=== PATIENT | male | born 1940 | race Caucasian/White ===

== ENCOUNTER → 2019-02-11 | Outpatient (CLI) | payer SELFPAY ==
[2015-04-21 07:33] VITALS: BP 122/67
[~2019-02-11] MED LIST: ALPR0.5T10 PO; ASPI325T8 PO; ATOR40TA59 PO; CITA10TA4 PO; DILT240C PO; FERR325T14 PO; HYDR-2761 PO; LOSA1TAB22 PO; METO-239 PO; POTA20TA82 PO; TAMS0.4C2 PO; WARF3TAB50 PO
--- NOTE | 2019-02-11 15:13 | KCIC ---
Ultrasound venous Doppler INDICATION:Bilateral lower extremity edema right greater than left. TECHNIQUE: Grayscale, color Doppler and spectral waveform ultrasound images of the bilateral lower extremities deep veins obtained. COMPARISON: None FINDINGS: Poor is preservation of bilateral calf veins due to edema. Rest of the interrogated deep veins are compressible and demonstrate evidence of blood flow with normal respiratory variation and response to augmentation. Mildly enlarged right groin lymph node is seen measuring 1.8 x 2.1 x 0.6 cm, nonspecific may be reactive. 3.3 x 7.9 x 1.4 cm cystic lesion is seen in the left popliteal fossa most likely a complex Muniz's cyst. IMPRESSION: Limited exam due to poor the visualization of calf veins due to edema. Rest of the deep veins demonstrate no acute DVT. Electronically signed by: Beka Zaman DO (02/11/2019 3:10 PM) [facility]
== END | disposition home or self-care (01) ==
LOC: KCIC US 13:24
PROVIDERS: ATTEND Family Medicine
DX: R60.0 Localized edema (principal)
CPT/HCPCS: 93970

== ENCOUNTER → 2019-09-12 | Outpatient (CLI) | payer BC ==
[2015-04-21 07:33] VITALS: BP 122/67
[~2019-09-12] MED LIST changes: +POTA20TA4 PO; -POTA20TA82 PO
--- NOTE | 2019-09-12 10:30 | RAD ---
MR#: [id number] Date of Study: 09/12/2019 Ordering Physician: JUSTIN SALDAÑA, Referring Physician: JUSTIN SALDAÑA, Tech: BETTY Kwan, RDAK, RTR APPROVED REPORT Patient Location : OUT-PATIENT Indications Lower Extremity Edema : Risk Factors Obesity Findings Limited grayscale images of the bilateral saphenofemoral junctions, greater and lesser saphenous vein s do not reveal any obvious evidence of thrombus The right great saphenous vein measures 7 mm and the left great saphenous vein measures 11 mm. Bilateral greater and lesser saphenous veins do not show any evidence of reflux. Critical Notification Critical Value: No <Conclusion> 1. Negative for reflux in the bilateral greater and lesser saphenous veins. Signed by : Dimitris Hopkins, Electronically Approved : 09/12/2019 10:29:49
--- NOTE | 2019-09-12 10:32 | RAD ---
MR#: [id number] Date of Study: 09/12/2019 Ordering Physician: JUTSIN SALDAÑA, Referring Physician: JUSTIN SALDAÑA, Tech: BETTY Kwan, [facility], RTR APPROVED REPORT Bilateral Lower Extremity Venous Study for DVT Patient Location: OUT-PATIENT Indications Lower Extremity Edema: Findings The bilateral lower extremity deep veins were evaluated for thrombus with color Doppler, spectral and grayscale images. On the right the grayscale images of the common femoral, superficial femoral and popliteal veins do n ot demonstrate any evidence of thrombus and these veins appear to be compressible. The below-knee vei ns were not well visualized but grossly appear to be compressible. Spectral imaging and color Doppler do not reveal any evidence of obstruction to flow with normal respirophasic variation above the knee . Below the knee there is spontaneous flow noted. On the left, the grayscale images of the common femoral, superficial femoral and popliteal veins do n ot demonstrate any evidence of thrombus and these veins appear to be compressible. The below-knee vei ns again were not well visualized but grossly appear to be compressible. Spectral imaging and color D oppler do not reveal any evidence of obstruction to flow with normal respirophasic variation above th e knee. The below-knee veins demonstrate spontaneous flow.The bilateral lower extremity deep veins we re evaluated for thrombus with color Doppler, spectral and grayscale images. There is bilateral edema in the in the subcutaneous areas. Critical Notification Critical Value: No <Conclusion> 1. Negative for DVT in the lower extremities Signed by : Dimitris Hopkins, Electronically Approved : 09/12/2019 10:31:54
== END | disposition home or self-care (01) ==
LOC: US 08:28
PROVIDERS: ATTEND Internal Medicine Cardiovascular Disease
DX: R60.0 Localized edema (principal)
CPT/HCPCS: 93970

== ENCOUNTER → 2020-01-21 | Outpatient (CLI) | payer BC ==
[2015-04-21 07:33] VITALS: BP 122/67
[~2020-01-21] MED LIST changes: +ASPI81TA59 PO; +DULO30CA2 PO; +LOSA100T14 PO; +PRAM0.255 PO
[2020-01-21 14:07] LABS: BASO # 0.1 x10^3/uL (0.0-0.2); BASO % 1 % (0-3); EOS # 0.1 x10^3/uL (0.0-0.7); EOS % 1 % (0-3); HEMATOCRIT 43.6 % (39.0-53.0); LYMPH # 1.7 x10^3/uL (1.0-4.8); LYMPH % 24 % (24-48); MEAN CORPUSCULAR HEMOGLOBIN 33 pg (25-35); MEAN CORPUSCULAR HGB CONC 35 g/dL (31-37); MEAN CORPUSCULAR VOLUME 97 fL (79-100); MONO # 0.5 x10^3/uL (0.0-1.1); MONO % 7 % (0-9); NEUT # 4.9 x10^3/uL (1.8-7.7); NEUT % 67 % (31-73); PLATELET COUNT 222 x10^3/uL (140-400); RED BLOOD COUNT 4.51 x10^6/uL (4.30-5.70); RED CELL DISTRIBUTION WIDTH 13.6 % (11.5-14.5); WHITE BLOOD COUNT 7.2 x10^3/uL (4.0-11.0)
[2020-01-21 14:15] LABS: PROTHROMBIN TIME PATIENT 17.7 SEC (11.7-14.0)
[2020-01-21 14:16] LABS: ALBUMIN 3.3 g/dL (3.4-5.0); CALCIUM 8.8 mg/dL (8.5-10.1); CREATININE 1.2 mg/dL (0.7-1.3); GFR 58.1; POTASSIUM 4.1 mmol/L (3.5-5.1)
--- NOTE | 2020-01-21 14:41 | EKG ---
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
--- NOTE | 2020-01-21 17:19 | RAD ---
EXAM: Chest, 2 views. HISTORY: Preoperative evaluation. COMPARISON: 03/25/2015 FINDINGS: 2 views of the chest are obtained. There is stable linear opacity within the right mid lower lung likely due to pleural parenchymal scarring. There is a calcified granuloma within the lateral right mid thorax. There is mild elevation of the right hemidiaphragm which is stable in appearance. The heart is normal in size. There is no pleural effusion or pneumothorax. IMPRESSION: Stable elevation of the right hemidiaphragm and suspect right mid and lower lung linear scarring. Electronically signed by: Malika Lugo MD (01/21/2020 5:16 PM) [id number]
== END | disposition home or self-care (01) ==
LOC: SURGPAT 12:56
PROVIDERS: ATTEND Orthopaedic Surgery
DX: Z01.818 Encounter for other preprocedural examination (principal); M17.12 Unilateral primary osteoarthritis, left knee; J98.4 Other disorders of lung; J84.10 Pulmonary fibrosis, unspecified; Q79.1 Other congenital malformations of diaphragm; R94.31 Abnormal electrocardiogram [ECG] [EKG]
CPT/HCPCS: 36415; 71046; 80048; 82040; 82306; 85025; 85610; 85730; 87641; 93005

== ENCOUNTER → 2020-01-31 | Outpatient (CLI) | payer BC ==
[2015-04-21 07:33] VITALS: BP 122/67
[~2020-01-31] MED LIST changes: +FURO40TA4 PO; +MELO15TA6 PO; +POTASSIUM 99 MG; +WARF-31 PO
== END | disposition home or self-care (01) ==
LOC: LAB 13:03
PROVIDERS: ATTEND Orthopaedic Surgery
DX: Z01.818 Encounter for other preprocedural examination (principal); Z11.59 Encounter for screening for other viral diseases; M17.12 Unilateral primary osteoarthritis, left knee
CPT/HCPCS: U0003-CS

== ENCOUNTER 2020-02-04 07:35 | Inpatient (IN) | payer BC ==
[~2020-02-04] VITALS: Ht 175.3 cm; Wt 121.0 kg
[2020-02-04] VITALS (8 sets, daily range): BP systolic 110–155; BP diastolic 45–68
[~2020-02-04 07:35] MED LIST changes: +ACETAMINOPHEN 500 MG TABLET PO PRN; -FURO40TA4 PO; +GABAPENTIN 300 MG CAPSULE. PO PRN; +HYDROmorphone 2 MG/ML VIAL IV PRN; +IV RINGERS,LACTATED 1000ML 1,000 ML IV SCH; -MELO15TA6 PO; +MELOXICAM 7.5 MG TABLET PO PRN; +MORPHINE SULFATE 2 MG/ML VIAL. IV PRN; +MORPHINE SULFATE 5 MG, KETOROLAC 30MG VIAL 30 MG, ROPIVacaine 0.5% PF 60 ML, EPINEPHrin... INT ART ONE; +ONDANSETRON PF 4 MG/2 ML VIAL. IV PRN; -POTASSIUM 99 MG; +PROCHLORPERAZINE 10 MG/2 ML VIAL. IV PRN; -WARF-31 PO; +fentaNYL PF VIAL 100 MCG/2 ML VIAL IV PRN
[2020-02-04] MEDS ORDERED: FURO40TA4 PO (08:29)
[2020-02-04] MEDS ORDERED: POTASSIUM 99 MG (08:34)
[2020-02-04 08:51] LABS: PROTHROMBIN TIME PATIENT 13.8 SEC (11.7-14.0)
[2020-02-04] MEDS ORDERED: WARF-31 PO (08:54)
[2020-02-04] MEDS ORDERED: MELO15TA6 PO (08:55)
--- NOTE | 2020-02-04 09:04 | PREOP HP ---
DATE OF SERVICE: 02/04/2020 CHIEF COMPLAINT: Left knee pain. HISTORY OF PRESENT ILLNESS: The patient is familiar to me from previous right total knee arthroplasty that is otherwise doing well, giving him good pain relief and increased activity; however, the left knee is now bothering him more and more; with activity, it pops and is painful. He has had swelling in both legs, the right more severe than the left. He normally takes Lasix; and when he takes that regularly, he does much better, but if he goes out on errands, he says that he is unable to keep up with the need to go to the bathroom and sometimes defers taking of his medicine; and in addition to his knee pain, also has some pain up and down the left leg that goes up and down the entire leg from the buttock to the foot. PAST MEDICAL HISTORY: Significant for hypertension, hyperlipidemia, reflux disease, osteoarthritis, anxiety, history of TIA, depression, frequent urination, hypokalemia, dyslipidemia, atrial fibrillation, and a history of stroke. PAST SURGICAL HISTORY: Right knee replacement in 2013, inguinal hernia repair in 2015, cataracts on both eyes, and a tonsillectomy and adenoidectomy in childhood. FAMILY HISTORY: Mother and father are both due to stroke. Two brothers and two sons are healthy. SOCIAL HISTORY: He is a former smoker. Denies alcohol or drug use. MEDICATION LIST: Reviewed. ALLERGIES: He has no known drug allergies. REVIEW OF SYSTEMS: Denies any chest pain, shortness of breath, recent fever, chills, respiratory or other constitutional symptoms. PHYSICAL EXAMINATION: VITAL SIGNS: Per admission sheet. HEENT: Atraumatic, normocephalic. HEART: Regular rate and rhythm. LUNGS: Clear to auscultation bilaterally. ABDOMEN: Benign. EXTREMITIES: Examination of the legs reveals some pitting edema in the right leg, a little less severe in the left. Well-healed incisions and good stability from the total knee arthroplasty on the right. He has some varus on the left knee with severe joint line tenderness, no gross ligamentous instability. Normal alignment, stability, bilateral hips and ankles. With a positive straight leg raise sign on the left, not present on the right. ASSESSMENT: 1. History of right total knee arthroplasty. 2. Primary osteoarthritis of left knee with pain. 3. Left lumbar radiculopathy. 4. Swelling in both legs with inconsistent use of diuretic. TREATMENT PLAN: I had gone over with him the need for ongoing better use of his diuretic and we had gone through risks, benefits and postoperative course, which we reviewed of total knee arthroplasty, which he is familiar with due to his previous procedure. We talked about the possibility of infection, nerve or blood vessel damage, medical or other anesthetic complications among others, and he wishes to proceed with surgical evaluation and treatment today, and I again emphasized the need for better fluid control postoperatively, which would help him really in the recovery of this and also some of the swelling that his has noted on the right leg. ARTIE KEE MD DR: JAMES/emelyn JOB#: [id number] / [id number]
[2020-02-04] MEDS ORDERED: VANCOMYCIN 1 GM VIAL. ONE (09:28)
[2020-02-04] MEDS ORDERED: fentaNYL PF VIAL 250 MCG/5 ML VIAL ONE (09:36)
[2020-02-04] MEDS ORDERED: LIDOCAINE 2% PF 5 ML VIAL. ONE (09:37)
[2020-02-04] MEDS ORDERED: PROPOFOL 10 MG/ML (20ML) VIAL. IV ONE (09:37)
[2020-02-04] MEDS ORDERED: SEVOFLURANE > 120 MINUTES. IH ONE (11:52)
[2020-02-04] MEDS ORDERED: DEXAMETHASONE SOD PHOS 4 MG/ML VIAL ONE (11:52)
[2020-02-04] MEDS ORDERED: ONDANSETRON PF 4 MG/2 ML VIAL. ONE (11:52)
[2020-02-04] MEDS ORDERED: MORPHINE SULFATE 2 MG/ML VIAL. IVP PRN (12:15)
[2020-02-04] MEDS ORDERED: oxyCODONE IR 5 MG TABLET PO PRN (12:15)
[2020-02-04] MEDS ORDERED: DEXTROSE 50% 25 GM / 50ML DISP.SYRIN. IV PRN (12:15)
[2020-02-04] MEDS ORDERED: 0.9 % SODIUM CHLORIDE 10 ML DISP.SYRIN. IV PRN (12:15)
[2020-02-04] MEDS ORDERED: diphenhydrAMINE 50 MG/ML VIAL IVP PRN (12:15)
[2020-02-04] MEDS ORDERED: PROCHLORPERAZINE 5 MG TABLET. PO PRN (12:15)
[2020-02-04] MEDS ORDERED: ZOLPIDEM 5 MG TABLET. PO PRN (12:15)
[2020-02-04] MEDS ORDERED: CALCIUM CARBONATE 500 MG TAB.CHEW PO PRN (12:15)
[2020-02-04] MEDS ORDERED: fentaNYL PF VIAL 100 MCG/2 ML VIAL IVP PRN (12:15)
[2020-02-04] MEDS: FERROUS SULFATE 325 MG TABLET. PO SCH ×2 (13:00→15:50)
--- NOTE | 2020-02-04 13:18 | RAD ---
INDICATION: Reason: POST OP / Spl. Instructions: / History: COMPARISON: February 2019 IMPRESSION: Left knee: 2 views obtained. Arthroplasty changes without periprosthetic fracture or dislocation. Drain in the soft tissues. Electronically signed by: Santi Santos MD (02/04/2020 1:15 PM) [id number]
[2020-02-04] MEDS: TAMSULOSIN 0.4 MG CAP.ER.24H. PO SCH (15:50)
[2020-02-04] MEDS ORDERED: WARFARIN 7.5 MG TABLET. PO ONE (16:00)
[2020-02-04] MEDS: IV NORMAL SALINE 1000ML BAG 1,000 ML IV SCH (16:00)
[2020-02-04] MEDS ORDERED: FERROUS SULFATE 325 MG TABLET. PO SCH (17:00)
[2020-02-04] MEDS: ONDANSETRON ODT 4 MG TAB.RAPDIS. PO SCH (17:14)
[2020-02-04] MEDS: ONDANSETRON PF 4 MG/2 ML VIAL. IVP SCH (17:14)
[2020-02-04] MEDS: KETOROLAC 30MG VIAL 30 MG, BUPIVACAINE MPF 0.25% 20 ML, EPINEPHrine 0.5 MG in TOTAL VOL... INT ART SCH (17:42)
--- NOTE | 2020-02-04 18:04 | NUR ---
Patient arrived to the unit around 1330 from PACU in a bed, at bedside. JULIANA covered with garry wrap on left leg, hemovac, and IAC intact. Edema noted in BLE which patient/ states is chronic but getting worse. IV working properly without any concerns noted. SCD on RLE and YEN on left foot. Will continue to monitor.
--- NOTE | 2020-02-04 18:45 | PDOC4 ---
Operative Note Operative Note Date of surgery: 02/04/2020 Preoperative diagnosis: Degenerative joint disease left knee Postoperative diagnosis: Same Operative procedure: Left total knee arthroplasty Surgeon: Gerri Photoengraving Apprentice: Dorian Santamaria nurse practitioner Anesthesia: General Estimated blood loss: 100 cc Specimens: Cartilage surfaces to pathology Complications: None Drains: Hemovac drain and intra-articular catheter, left knee Operative indications: Please see my preoperative history and physical and previous clinic notes to outline detailed operative indications and note that patient previously underwent a right total knee arthroplasty and aside from leg swelling has been very pleased with this and we had previously discussed his need to be more compliant with his prescribed Lasix to deal better with his lower extremity edema which is a risk factor for wound complications infection and I covered specific potential complications including additionally nerve or blood vessel damage premature wear or loosening continued pain medical or other anesthetic complications among others he agrees to proceed with operative evaluation and treatment having given informed consent. Operative text: Patient was identified procedure verified patient placed in the supine position on the operating table. After adequate amounts of general anesthesia were administered the left lower extremity was prepped and draped in standard sterile fashion with a thigh tourniquet. After timeout was performed patient procedure identified and verified the left lower extremity was exsanguinated by Esmarch bandage tourniquet inflated to 350 mmHg and a midline incision was made along with a mid vastus approach patella was everted fat pad was excised he was noted to have severe tricompartmental degenerative change and femur was drilled intramedullary and a standard distal cut was made. ACL and PCL were excised and the femoral sizing guide resulted in a size 5 femoral component which was translated anteriorly slightly and AP chamfer cuts were made. Tibial cut was made with the extra medullary tibial cutting guide aligned with the second toe and balancing carried out with a 15 mm spacing block. Additional medial release and excision of medial osteophytes were necessary for balancing and a synovectomy was performed due to his significantly irritated synovium. Tibia was sized at a size 5 which was placed in proper alignment slight external rotation and drilled and broached. Femur was pinned and box cut was made and trial implants after achieving balance involved a posterior stabilized 18 mm spacer. He was however noted to have some lateral laxity and I elected to trial fit with a constrained articular insert and supplement the tibial component with a 10 x 100 mm Tiffany II longstem. Trial components were removed the following components were assembled on the back table including a size 5 left journey nonporous tibial baseplate which was assembled with a Tiffany II 10 x 100 mm long non-slotted stem and a size left journey to cobalt chromium femoral component. Patella had previously been prepared with a biconvex 26 mm patella which was medialized and osteophytes and lateral bone was removed to prevent any impingement. After thorough rogation carried out normal saline solution the above components were cemented in place with polymethylmethacrylate cement and after excess cement was removed and 18 mm constrained articular insert was placed temporarily with the knee in extension. Thorough irrigation carried out normal saline solution and a constrained articular insert 18 mm size was slid in place and locked. Intra-articular mixture was injected subperiosteally and around the joint capsule. Hemovac drain and intra-articular catheter were placed mid vastus incision was closed in a running fashion with #1 PDS strata fix suture excellent patellar tracking full range of motion ligament balance was noted. Subcutaneous closure accomplished with buried Vicryl suture skin closure with subcuticular 3-0 Monocryl strata fix suture ginger dressing was applied. Patient was returned to recovery room in stable condition having tolerated procedure well. Dorian Santamaria nurse practitioner was present for the procedure and assisted in the patient positioning prepping draping retraction closure and dressings ARTIE KEE MD Feb 04, 2020 18:45
[2020-02-04] MEDS: ATORVASTATIN CALCIUM 40 MG TABLET. PO SCH (21:03)
[2020-02-05] VITALS (7 sets, daily range): BP systolic 113–160; BP diastolic 50–77
[2020-02-05] MEDS: KETOROLAC 30MG VIAL 30 MG, BUPIVACAINE MPF 0.25% 20 ML, EPINEPHrine 0.5 MG in TOTAL VOL... INT ART SCH (05:35)
[2020-02-05] MEDS: GABAPENTIN 100 MG CAPSULE. PO SCH ×3 (05:36→21:52)
[2020-02-05] MEDS: ONDANSETRON ODT 4 MG TAB.RAPDIS. PO SCH ×3 (06:00→12:00)
[2020-02-05] MEDS: traMADol 50 MG TABLET PO SCH ×3 (06:00→18:34)
[2020-02-05] MEDS ORDERED: MAGNESIUM HYDROXIDE 2,400 MG/30 ML ORAL.SUSP. PO PRN (06:00)
[2020-02-05] MEDS: ONDANSETRON PF 4 MG/2 ML VIAL. IVP SCH ×3 (06:00→12:00)
[2020-02-05 06:51] LABS: HEMATOCRIT 36.8 % (39.0-53.0); HEMOGLOBIN 12.4 g/dL (13.0-17.5)
[2020-02-05 07:03] LABS: PROTHROMBIN TIME PATIENT 16.9 SEC (11.7-14.0)
[2020-02-05] MEDS: POTASSIUM CHLORIDE 10 MEQ TABLET.ER. PO SCH (08:05)
[2020-02-05] MEDS: FUROSEMIDE 40 MG TABLET. PO SCH (08:06)
[2020-02-05] MEDS: MULTIVITAMIN with MINERAL TABLET. PO SCH (08:06)
[2020-02-05] MEDS: ACETAMINOPHEN 500 MG TABLET PO SCH ×3 (08:06→21:53)
[2020-02-05] MEDS: MELOXICAM 7.5 MG TABLET PO SCH (08:07)
[2020-02-05] MEDS: FERROUS SULFATE 325 MG TABLET. PO SCH ×3 (08:08→18:34)
[2020-02-05] MEDS: DULoxetine HCL 30 MG CAPSULE.DR PO SCH (08:09)
[2020-02-05] MEDS: METOPROLOL SUCC 24HR ER 25 MG TAB.ER.24H. PO SCH (08:09)
[2020-02-05] MEDS: LOSARTAN POTASSIUM 50 MG TABLET. PO SCH (08:09)
[2020-02-05] MEDS: ASPIRIN CHEWABLE 81 MG TABLET. PO SCH (09:00)
[2020-02-05] MEDS: SENNOSIDES/DOCUSATE 8.6/50MG TABLET. PO SCH (09:00)
[2020-02-05] MEDS: PRAMIPEXOLE 1 MG TABLET. PO SCH (09:08)
--- NOTE | 2020-02-05 09:52 | NUR ---
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 Target range for this patient is: 2 -3 P: Warfarin dose: 5 mg Today at 1600 Bridge Therapy: None Next INR due 02/06/20 AM Pharmacy anticoagulation service will continue to follow. CAROLA GASPAR [facility], 02/05/20 0952
[2020-02-05] MEDS ORDERED: ONDANSETRON PF 4 MG/2 ML VIAL. IVP PRN (12:00)
[2020-02-05] MEDS ORDERED: ONDANSETRON ODT 4 MG TAB.RAPDIS. PO PRN (12:00)
[2020-02-05] MEDS: IV NORMAL SALINE 1000ML BAG 1,000 ML IV SCH (12:07)
--- NOTE | 2020-02-05 13:27 | PDOC2 ---
JACKELINE LAMA BRAILLE TRANSLATOR 02/05/20 1327: CARDIAC CONSULT DATE OF CONSULT Date of Consult DATE: 02/05/20 TIME: 13:18 REASON FOR CONSULT Reason for Consult: leg, foot swelling REFERRING PHYSICIAN Referring Physician: Dr. Talley SOURCE Source: Chart review, Patient HISTORY OF PRESENT ILLNESS HISTORY OF PRESENT ILLNESS This is an 80 yo male who presented for left total knee replacement. Has a h/o chronic LE edema. Is supposed to be on Lasix 40mg daily, but reports he does not generally take. Reports chronic RLE edema. Left is not generally swollen, but has been since surgery. He denies any chest pain, palpitations, dizziness, diaphoresis, palpitations, or nausea/vomiting. Reports his kidney are "not too good". Generally urinates moderate amount following oral lasix, but has not done so here in the hospital. PAST MEDICAL HISTORY Cardiovascular: AFIB, HTN, Hyperlipidemia CENTRAL NERVOUS SYSTEM: CVA GI: GERD Psych: Anxiety, Depression Musculoskeletal: Osteoarthritis Renal/: Chronic renal insuff PAST SURGICAL HISTORY Past Surgical History: Cataract Removal, Hernia Repair, Total knee replacement (right. Left this admission ), Tonsillectomy FAMILY HISTORY Family History: High Cholestrol, Hypertension, Stroke SOCIAL HISTORY Smoke: Quit ALCOHOL: social Drugs: None Lives: with Family CURRENT MEDICATIONS CURRENT MEDICATIONS Current Medications Medications (Trade) Dose Ordered Sig/Jaime Route PRN Reason Start Time Stop Time Status Last Admin Dose Admin Warfarin Sodium (Coumadin) 7.5 mg 1X ONCE PO 02/04/20 16:00 02/04/20 16:01 DC 02/04/20 15:50 Multivitamins (Thera M Plus) 1 tab DAILY PO 02/05/20 09:00 02/05/20 08:06 Ketorolac Tromethamine 30 mg/Bupivacaine HCl 20 ml/ Epinephrine HCl 0.5 mg/ Miscellaneous 43 ml @ 258 mls/hr Q12H INT ART 02/04/20 18:00 02/05/20 06:09 DC 02/05/20 05:35 Acetaminophen (Tylenol) 1,000 mg Q6H PO 02/05/20 09:00 02/05/20 08:06 Meloxicam (Mobic) 15 mg DAILY PO 02/05/20 09:00 02/05/20 08:07 Tramadol HCl (Ultram) 50 mg Q6H PO 02/05/20 06:00 8/12/20 12:19 Gabapentin (Neurontin) 100 mg Q12H PO 02/05/20 06:00 02/05/20 05:36 Atorvastatin Calcium (Lipitor) 40 mg HS PO 02/04/20 21:00 02/04/20 21:03 Diltiazem HCl (Cardizem 24hr Cd) 240 mg DAILY07 PO 02/05/20 07:00 02/05/20 06:33 Duloxetine HCl (Cymbalta) 30 mg DAILY PO 02/05/20 09:00 02/05/20 08:09 Furosemide (Lasix) 40 mg DAILY PO 02/05/20 09:00 02/05/20 08:06 Metoprolol Succinate (Toprol Xl) 12.5 mg DAILY08 PO 02/05/20 08:00 02/05/20 08:09 Pramipexole Dihydrochloride (miraPEX) 1 mg DAILY PO 02/05/20 09:00 02/05/20 09:08 Tamsulosin HCl (Flomax) 0.8 mg DAILYBFRSUP PO 02/04/20 17:00 02/04/20 15:50 Losartan Potassium (Cozaar) 100 mg DAILY PO 02/05/20 09:00 02/05/20 08:09 Potassium Chloride (Klor-Con) 2.5 meq DAILYWBKFT PO 02/05/20 08:00 02/05/20 08:05 Cefazolin Sodium/ Dextrose 50 ml @ 100 mls/hr Q6HRS IV 02/04/20 16:00 02/04/20 22:35 DC 02/04/20 21:52 Cefazolin Sodium/ Dextrose 50 ml @ 100 mls/hr 1X ONCE IV 02/05/20 04:00 02/05/20 04:29 DC 02/05/20 04:06 ALLERGIES ALLERGIES: Coded Allergies: No Known Drug Allergies (Unverified , 02/04/20) ROS Review of System 14 ROS conducted with pertinent positives noted above in HPI PHYSICAL EXAM General: Alert, Oriented X3, Cooperative, No acute distress HEENT: Atraumatic, Mucous membr. moist/pink Lungs: Clear to auscultation Heart: Regular rate (heart tones regular. Not on tele) Abdomen: Soft Extremities: Other (2+ bilateral LE edema. AMADOR wrap to left leg) Skin: No significant lesion Neuro: Normal speech, Sensation intact Psych/Mental Status: Mental status NL, Mood NL MUSCULOSKELETAL: Osteoarthritic changes both hands VITALS/I&O VITALS/I&O: Vital Signs Date Time Temp Pulse Resp B/P (MAP) Pulse Ox O2 Delivery O2 Flow Rate FiO2 02/05/20 12:19 Room Air 02/05/20 11:00 98.2 81 18 156/65 (95) 95 98.2 02/04/20 19:45 2.0 I & O 02/04/20 02/04/20 02/05/20 15:00 23:00 07:00 Intake Total 1200 ml 350 ml Output Total 75 ml 620 ml 855 ml Balance 1125 ml -270 ml -855 ml LABS Lab: Laboratory Tests Test 02/05/20 06:25 Hemoglobin 12.4 g/dL (13.0-17.5) L Hematocrit 36.8 % (39.0-53.0) L Mean Corpuscular Hemoglobin Concent 34 g/dL (31-37) Prothrombin Time 16.9 SEC (11.7-14.0) H Prothrombin Time INR 1.4 (0.8-1.1) H Laboratory Tests 02/05/20 06:25 ASSESSMENT/PLAN ASSESSMENT/PLAN 1. DJD of left knee; s/p total knee arthroplasty. Tolerated well 1. Chronic LE edema; worse recently. Has been noncompliant with diuretic therapy. Recent US negative for reflux in the bilateral greater and lesser saphenous veins 3. Hypertension; mildly elevated 4. Hyperlipidemia; statin 5. PAFIB; heart tones regular. Not on tele. Recommendations BMP, Mg Will give dose of IV Lasix Discussed importance of compliance with oral Lasix therapy 2Gm Na diet Continue Cardizem for rate control Warfarin for stroke prophylaxis. Outpatient echo Supportive care JUANIS HOOKER MD 02/06/20 0749: CARDIAC CONSULT ASSESSMENT/PLAN ASSESSMENT/PLAN Late entry for 02/05/2020 Pt. seen and examined. 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 Continue diuresis. JACKELINE LAMA APRN Feb 05, 2020 13:27 JUANIS HOOKER MD Feb 06, 2020 07:49
[2020-02-05 13:57] LABS: CALCIUM 8.2 mg/dL (8.5-10.1); CREATININE 1.4 mg/dL (0.7-1.3); GFR 48.5; MAGNESIUM 1.9 mg/dL (1.8-2.4)
[2020-02-05] MEDS: TAMSULOSIN 0.4 MG CAP.ER.24H. PO SCH (15:54)
[2020-02-05] MEDS ORDERED: BISACODYL 10 MG SUPP.RECT. PR PRN (16:00)
[2020-02-05] MEDS ORDERED: FUROSEMIDE 40 MG/4 ML VIAL. IVP ONE (16:00)
[2020-02-05] MEDS ORDERED: WARFARIN 5 MG TABLET. PO ONE (16:00)
--- NOTE | 2020-02-05 20:44 | PDOC ---
PROGRESS NOTES Date of Service DATE: 02/05/20 TIME: 20:39 Subjective Subjective Problems overnight: Doing overall pretty well with physical therapy, has significant muscle spasm and severe foot and leg swelling right much worse than left Objective Vital Signs Vital Signs Date Time Temp Pulse Resp B/P (MAP) Pulse Ox O2 Delivery O2 Flow Rate FiO2 02/05/20 19:00 98.5 72 18 145/57 (86) 93 Room Air 98.5 02/04/20 19:45 2.0 Physical Exam On exam distal neurovascular status is intact his dressing clean dry intact he has good early motion and stability of the left knee severe bilateral lower extremity pitting edema right much worse than left Labs Laboratory Tests Test 02/04/20 08:10 02/05/20 06:25 Prothrombin Time 13.8 SEC (11.7-14.0) 16.9 SEC (11.7-14.0) Prothromb Time International Ratio 1.1 (0.8-1.1) 1.4 (0.8-1.1) Activated Partial Thromboplast Time 26 SEC (24-38) C-Reactive Protein, Quantitative 1.7 mg/L (0-3.3) Hemoglobin 12.4 g/dL (13.0-17.5) Hematocrit 36.8 % (39.0-53.0) Mean Corpuscular Hemoglobin Concent 34 g/dL (31-37) Sodium Level 139 mmol/L (136-145) Potassium Level 4.0 mmol/L (3.5-5.1) Chloride Level 103 mmol/L (98-107) Carbon Dioxide Level 29 mmol/L (21-32) Anion Gap 7 (6-14) Blood Urea Nitrogen 22 mg/dL (8-26) Creatinine 1.4 mg/dL (0.7-1.3) Estimated GFR (Cockcroft-Gault) 48.5 Glucose Level 147 mg/dL (70-99) Calcium Level 8.2 mg/dL (8.5-10.1) Magnesium Level 1.9 mg/dL (1.8-2.4) Laboratory Tests Test 02/05/20 06:25 Hemoglobin 12.4 g/dL (13.0-17.5) Hematocrit 36.8 % (39.0-53.0) Mean Corpuscular Hemoglobin Concent 34 g/dL (31-37) Prothrombin Time 16.9 SEC (11.7-14.0) Prothromb Time International Ratio 1.4 (0.8-1.1) Sodium Level 139 mmol/L (136-145) Potassium Level 4.0 mmol/L (3.5-5.1) Chloride Level 103 mmol/L (98-107) Carbon Dioxide Level 29 mmol/L (21-32) Anion Gap 7 (6-14) Blood Urea Nitrogen 22 mg/dL (8-26) Creatinine 1.4 mg/dL (0.7-1.3) Estimated GFR (Cockcroft-Gault) 48.5 Glucose Level 147 mg/dL (70-99) Calcium Level 8.2 mg/dL (8.5-10.1) Magnesium Level 1.9 mg/dL (1.8-2.4) Imaging Postop x-rays show well-positioned left total knee arthroplasty Assessment Assessment POD#1 left total knee arthroplasty Plan Plan of Care Cardiology evaluation for his lower extremity swelling. He is followed by Dr. De Dios and is prescribed Lasix but takes it inconsistently as he says if he is out anywhere he has to constantly go to the bathroom and therefore avoids the medication. I had emphasized to him that it is critical that we have him keep up with the medication or develop a different strategy that is effective as he could have severe consequences including wound healing problems circulation problems infection among others Continue mobilize with physical therapy, Coumadin anticoagulation, previous recent ultrasounds of his right leg have been negative Justicifation of Admission Dx: Justifications for Admission: Justification of Admission Dx: Yes (Severe lower extremity swelling requiring cardiac evaluation of diuresis and ongoing treatment plan) ARTIE KEE MD Feb 05, 2020 20:44
[2020-02-05] MEDS: ATORVASTATIN CALCIUM 40 MG TABLET. PO SCH (21:52)
[2020-02-06 03:00] VITALS: BP 112/38
[2020-02-06 07:00] VITALS: BP 144/49
[2020-02-06] MEDS: traMADol 50 MG TABLET PO SCH (07:33)
[2020-02-06] MEDS: POTASSIUM CHLORIDE 10 MEQ TABLET.ER. PO SCH (08:00)
[2020-02-06 08:15] LABS: PROTHROMBIN TIME PATIENT 22.2 SEC (11.7-14.0)
[2020-02-06] MEDS ORDERED: OXYC-325 PO (08:31)
--- NOTE | 2020-02-06 08:33 | SNU/HH DC ---
DISCHARGE WITH HOME HEALTH DISCHARGE INFORMATION: Condition on Discharge: Stable CODE STATUS: Code Status: Full HOME HEALTH: Face to Face: I certify this patient is under my care and that I, or a nurse practitioner or physician's personal injury legal assistant working with me, had a face to face encounter that meets the physician face to face encounter requirements with this patient on [02/06/2020]. Medical Complications: S/P Joint Replacement, Other (Please comply with scheduled Lasix dosing to control lower extremity swelling which could compromise healing) RN For Eval/Treatment: Yes Physical Therapy For: Evalulation/Treatment Pt Meets Homebound Status: Limited distance walking POST DISCHARGE ORDERS: Activity Instructions for Disc: Activity as tolerated Weight Bearing Status after Di: As tolerated Bathing Instructions: Shower-keep dressing dry, No Tub Bath until see Dr. CRAVEN AFTER DISCHARGE: Cardiac Wound/Incision Care: Ice to area for comfort, Keep wound/cast CDI, Do not change dressing (Keep ginger dressing intact call if saturated) FOLLOW-UP: Follow up with: Dr. Talley 2 weeks postop Warfarin Follow UP: Testing and dosing as directed per [facility] TREATMENT/EQUIPMENT ORDERS: Adaptive Equipment Issued: Front wheeled walker CERTIFICATION STATEMENT: Certification Statement: Certification Statement: Based on the above finding, I certify that this patient is confined to the home and needs intermittent longterm care, physical therapy and/or speech therapy, or continues to need occupational therapy.~ This patient is under my care, and I have initiated the establishment of the plan of care.~ This patient will be followed by myself or a community physician who will periodically review the plan of care. Home Meds Reported Medications Meloxicam (MOBIC) 15 Mg Tablet, 1 TAB PO ONCE for PRE OP, #30 TAB 1 Refill 02/04/20 [POTASSIUM 99 MG otc] No Conflict Check, for SUPPLEMENT 02/04/20 Furosemide (FUROSEMIDE) 40 Mg Tablet, 1 TAB PO DAILY for DIURETIC, #30 TAB 5 Refills 02/04/20 Aspirin (Children's Aspirin) 81 Mg Tab.chew, 1 TAB PO DAILY for HEART for 30 Days, #30 TAB 0 Refills 01/21/20 Pramipexole Di-Hcl (MIRAPEX) 0.25 Mg Tablet, 1 MG PO DAILY for RLS, TAB 01/21/20 Duloxetine Hcl (CYMBALTA) 30 Mg Capsule.dr, 1 CAP PO DAILY for DEPRESSION, #30 CAP 5 Refills 01/21/20 Losartan Potassium (LOSARTAN POTASSIUM) 100 Mg Tablet, 100 MG PO DAILY for HYPERTENSION, TAB 01/21/20 Ferrous Sulfate (FERROUS SULFATE) 325 Mg Tablet, 325 MG PO TIDAFTMEAL 08/06/13 Warfarin Sodium (WARFARIN SODIUM) 3 Mg Tablet, 3 MG PO HS 08/06/13 Atorvastatin Calcium (ATORVASTATIN CALCIUM) 40 Mg Tablet, 40 MG PO HS 08/06/13 Diltiazem Hcl (DILTIAZEM 24HR ER) 240 Mg Cap.er.24h, 240 MG PO DAILY07 08/06/13 Metoprolol Succinate (METOPROLOL SUCCINATE ( XL )) 25 Mg Tab.er.24h, 12.5 MG PO DAILY08 08/06/13 Tamsulosin Hcl (TAMSULOSIN HCL) 0.4 Mg Cap.er.24h, 0.8 MG PO DAILYBFRSUP 08/06/13 Discontinued Reported Medications Warfarin Sodium (WARFARIN SODIUM) 5 Mg Tablet, 5 MG PO ONCE for PRE OP DOSE, #30 TAB 02/04/20 Alprazolam (ALPRAZOLAM) 0.5 Mg Tab.rapdis, 0.5 MG PO HS 08/06/13 Potassium Chloride (POTASSIUM CHLORIDE ) 20 Meq Tablet.er, 20 MEQ PO DAILY for SUPPLEMENT 08/06/13 ARTIE TALLEY MD Feb 06, 2020 08:33
[2020-02-06] MEDS: SENNOSIDES/DOCUSATE 8.6/50MG TABLET. PO SCH (09:00)
[2020-02-06] MEDS: ACETAMINOPHEN 500 MG TABLET PO SCH ×2 (09:00→10:08)
--- NOTE | 2020-02-06 09:36 | DS ---
DATE OF DISCHARGE: 02/06/2020 ORTHOPEDIC DISCHARGE SUMMARY PRINCIPAL DIAGNOSIS: Posttraumatic osteoarthritis, left knee. SECONDARY DIAGNOSIS: Severe lower extremity pitting edema. OPERATIVE PROCEDURE: Left total knee arthroplasty. DISCHARGE: Home with home health. FOLLOWUP: Dr. Talley in 2 weeks. DISPOSITION MEDICATIONS: Percocet 5/325 one p.o. q.4hours p.r.n. pain, Coumadin as directed by anticoagulation clinic, resume preoperative medications and any Lasix change in dose as directed by Cardiology. ACTIVITY: Weightbearing as tolerated with maintaining JULIANA dressing, call if saturated. BRIEF DESCRIPTION OF HOSPITAL COURSE: The patient underwent an unremarkable total knee arthroplasty. Postoperatively, was initially noted to need some IV pain medications, but then, pain was later well controlled. He still had severe lower extremity pitting edema in part due to some poor compliance with his Lasix dosing. I did have Cardiology see him to work out an adequate regimen to control his lower extremity swelling and emphasized with him the need to comply with this due to the possibility of wound healing or other complications if he continues to have severe lower extremity edema. He was discharged home with home health followup in stable condition. ARTIE TALLEY MD DR: JAMES/emelyn JOB#: [id number] / [id number]
--- NOTE | 2020-02-06 09:58 | NUR ---
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 Target range for this patient is: 2 -3 P: Warfarin dose: Hold Today 2' rapid increase in INR, then restart regular home regimen tomorrow. Next INR due per primary physician CAROLA GASPAR RP, 02/06/20 [id number]
[2020-02-06] MEDS: MELOXICAM 7.5 MG TABLET PO SCH (10:08)
[2020-02-06] MEDS: MULTIVITAMIN with MINERAL TABLET. PO SCH (10:08)
[2020-02-06] MEDS: PRAMIPEXOLE 1 MG TABLET. PO SCH (10:09)
[2020-02-06] MEDS: METOPROLOL SUCC 24HR ER 25 MG TAB.ER.24H. PO SCH (10:11)
[2020-02-06] MEDS: FERROUS SULFATE 325 MG TABLET. PO SCH ×2 (10:12→13:02)
[2020-02-06] MEDS: ASPIRIN CHEWABLE 81 MG TABLET. PO SCH (10:12)
[2020-02-06] MEDS: DULoxetine HCL 30 MG CAPSULE.DR PO SCH (10:12)
[2020-02-06] MEDS: FUROSEMIDE 40 MG TABLET. PO SCH (10:12)
[2020-02-06] MEDS: LOSARTAN POTASSIUM 50 MG TABLET. PO SCH (10:13)
[2020-02-06 11:00] VITALS: BP 118/49
--- NOTE | 2020-02-06 11:45 | NUR ---
Doing well. No c/o pain. Anxious to go home today. Cont. monitor.
[2020-02-06 15:00] VITALS: BP 122/54
--- NOTE | 2020-02-06 15:07 | PATHOLOGY ---
[facility] Accession Number: [id number] . 01 Material submitted: . knee - LEFT KNEE BONE AND TISSUE. Modifiers: left . 01 Clinical history: . Osteoarthritis; posttraumatic OA . 02 Diagnosis: Segments of bone and soft tissue, left total knee replacement: - Advanced degenerative arthritis. (JPM:lavinia; 02/06/2020) QMS 02/06/2020 1300 Local . 02 Electronically signed: . Mahendra Grace MD, Pathologist NPI- [id number] . 01 Gross description: . The specimen is received in formalin, labeled "[place], left knee bone and tissue". Received are multiple segments of bone, including a fractured tibial plateau, admixed with soft tissue measuring 10.8 x 10.2 x 3.6 cm in aggregate dimensions. Meniscus is absent. The articular surfaces are pale langley and granular to smooth in appearance with evidence of eburnation. The specimen is submitted representatively in cassette A1, following decalcification. (CAA; 02/05/2020) QAC/QA 02/05/2020 1042 Local . 02 Pathologist provided ICD-10: M17.12 . 02 CPT . 126575, 081677 Specimen Comment: A courtesy copy of this report has been sent to [phone], [phone] Specimen Comment: [id number] Specimen Comment: Report sent to / DR GUILLERMO Performed at: 01 [facility] [address], [place] [id number] MD Jeff Wells MD Phone: [phone] Performed at: [address] [facility] [address] [place], [place] [id number] MD Mahendra Grace MD Phone: [phone]
--- NOTE | 2020-02-06 15:29 | NUR ---
Discharge instructions given with prescriptions. Answered questions and concerns. Verbalized understanding. Extra dressings provided. Pt discharged home with home health. Escorted out by w/c accompanied by spouse.
[2020-02-06 17:07] LABS: HEMATOCRIT 36.7 % (39.0-53.0); HEMOGLOBIN 12.4 g/dL (13.0-17.5)
[2020-02-07] MEDS ORDERED: WARFARIN 3 MG TABLET. PO SCH (16:00)
== END 2020-02-06 15:29 | disposition home health service (06) | DRG 470 ==
LOC: SURG 07:35 → 4 NORTH 12:07 → OBSVTOIN 02-05 11:51
PROVIDERS: ADMIT Orthopaedic Surgery; ATTEND Orthopaedic Surgery
PROC: 0SRD0J9 Replacement of Left Knee Joint with Synthetic Substitute, Cemented, Open Approach (ICD-10-PCS; principal; 2020-02-04 09:30)
DX: M17.12 Unilateral primary osteoarthritis, left knee (principal); E78.5 Hyperlipidemia, unspecified; I12.9 Hypertensive chronic kidney disease with stage 1 through stage 4 chronic kidney disease, or unspecified chronic kidney disease; I48.0 Paroxysmal atrial fibrillation; M54.16 Radiculopathy, lumbar region; N18.9 Chronic kidney disease, unspecified; Z82.3 Family history of stroke; Z82.49 Family history of ischemic heart disease and other diseases of the circulatory system; Z86.73 Personal history of transient ischemic attack (TIA), and cerebral infarction without residual deficits; Z87.891 Personal history of nicotine dependence; Z91.14 Patient's other noncompliance with medication regimen; Z96.653 Presence of artificial knee joint, bilateral; E87.6 Hypokalemia; F32.9 Major depressive disorder, single episode, unspecified; F41.9 Anxiety disorder, unspecified; K21.9 Gastro-esophageal reflux disease without esophagitis; M19.90 Unspecified osteoarthritis, unspecified site
CPT/HCPCS: 36415; 73560; 80048; 83735; 85014; 85018; 85610; 85730; 86140; 86850; 86900; 86901; 88305; 88311; C1713; G0378; G0379; J0171; J0690; J1100; J1885; J1940; J2270; J2405; J2704; J2795; J3010; J3370; J3490; J7030; J7120; 97116-GP; 97150-GP; 97530-GO; 97530-GP; 97535-GO; C1769; C1776

== ENCOUNTER 2020-02-12 14:20 | Inpatient (IN) | payer BC ==
[~2020-02-12] VITALS: Ht 175.3 cm; Wt 115.2 kg
[~2020-02-12 14:20] MED LIST changes: -ACETAMINOPHEN 500 MG TABLET PO PRN; +FURO40TA4 PO; -GABAPENTIN 300 MG CAPSULE. PO PRN; -HYDROmorphone 2 MG/ML VIAL IV PRN; -IV RINGERS,LACTATED 1000ML 1,000 ML IV SCH; +MELO15TA6 PO; -MELOXICAM 7.5 MG TABLET PO PRN; -MORPHINE SULFATE 2 MG/ML VIAL. IV PRN; -MORPHINE SULFATE 5 MG, KETOROLAC 30MG VIAL 30 MG, ROPIVacaine 0.5% PF 60 ML, EPINEPHrin... INT ART ONE; -ONDANSETRON PF 4 MG/2 ML VIAL. IV PRN; +OXYC-325 PO; +POTASSIUM 99 MG; -PROCHLORPERAZINE 10 MG/2 ML VIAL. IV PRN; +WARF-31 PO; -fentaNYL PF VIAL 100 MCG/2 ML VIAL IV PRN
[2020-02-12 16:29] LABS: BASO # 0.1 x10^3/uL (0.0-0.2); BASO % 1 % (0-3); EOS # 0.4 x10^3/uL (0.0-0.7); EOS % 4 % (0-3); HEMATOCRIT 34.1 % (39.0-53.0); HEMOGLOBIN 11.7 g/dL (13.0-17.5); LYMPH # 1.8 x10^3/uL (1.0-4.8); LYMPH % 16 % (24-48); MEAN CORPUSCULAR HEMOGLOBIN 34 pg (25-35); MEAN CORPUSCULAR HGB CONC 34 g/dL (31-37); MEAN CORPUSCULAR VOLUME 98 fL (79-100); MONO % 9 % (0-9); NEUT # 7.8 x10^3/uL (1.8-7.7); NEUT % 71 % (31-73); PLATELET COUNT 342 x10^3/uL (140-400); RED BLOOD COUNT 3.49 x10^6/uL (4.30-5.70); RED CELL DISTRIBUTION WIDTH 13.5 % (11.5-14.5); WHITE BLOOD COUNT 11.1 x10^3/uL (4.0-11.0)
[2020-02-12 16:40] LABS: CALCIUM 8.5 mg/dL (8.5-10.1); GFR 71.5
[2020-02-12 16:47] LABS: ALBUMIN 2.5 g/dL (3.4-5.0); ALBUMIN/GLOBULIN RATIO 0.7 (1.0-1.7); TOTAL PROTEIN 6.1 g/dL (6.4-8.2)
[2020-02-12] MEDS ORDERED: ONDANSETRON PF 4 MG/2 ML VIAL. IV PRN (17:30)
[2020-02-12] MEDS ORDERED: ACETAMINOPHEN 325 MG TABLET. PO PRN (17:30)
[2020-02-12] MEDS ORDERED: MORPHINE SULFATE 4 MG/ML VIAL. IV PRN (17:30)
--- NOTE | 2020-02-12 17:34 | PHYS DOC ---
Past Medical History Past Medical History: A-Fib, High Cholesterol, Hypertension Past Surgical History: Other Additional Past Surgical Histo: left knee replacement surgery 02/04/20 Smoking Status: Light Tobacco Smoker Alcohol Use: None General Adult EDM: Chief Complaint: LOWER EXTREMITY SWELLING HPI: HPI: Patient is a 80 year old female with history of hypertension, high cholesterol, A. fib, who presents to the ED today with left lower extremity swelling. Patient had left knee total replacement done February 05, 2020. He states the lower extremity has been getting swollen and red and today the home health nurse requested he comes to the Ed. Patient states he is supposed to take Lasix but did not take it this morning. He states it makes him go to the bathroom frequently which he does not like. Patient denies any fever, nausea, vomiting. Review of Systems: Review of Systems: Constitutional: Denies fever or chills. [] Eyes: Denies change in visual acuity. [] HENT: Denies nasal congestion or sore throat. [] Respiratory: Denies cough or shortness of breath. [] Cardiovascular: Denies chest pain or edema. [] GI: Denies abdominal pain, nausea, vomiting, bloody stools or diarrhea. [] : Denies dysuria. [] Musculoskeletal: Reports left lower extremity redness and swelling. Denies back pain or joint pain. [] Integument: Denies rash. [] Neurologic: Denies headache, focal weakness or sensory changes. [] Endocrine: Denies polyuria or polydipsia. [] Lymphatic: Denies swollen glands. [] Psychiatric: Denies depression or anxiety. [] Heart Score: Risk Factors: Risk Factors: DM, Current or recent (<one month) smoker, HTN, HLP, family history of CAD, obesity. Risk Scores: Score 0 - 3: 2.5% MACE over next 6 weeks - Discharge Home Score 4 - 6: 20.3% MACE over next 6 weeks - Admit for Clinical Observation Score 7 - 10: 72.7% MACE over next 6 weeks - Early Invasive Strategies Current Medications: Current Medications Medications (Trade) Dose Ordered Sig/Jaime Start Time Stop Time Status Last Admin Dose Admin Acetaminophen (Tylenol) 650 mg PRN Q4HRS PRN 02/12/20 17:30 02/13/20 17:29 UNV Morphine Sulfate (Morphine Sulfate) 4 mg PRN Q2HR PRN 02/12/20 17:30 02/13/20 17:29 UNV Ondansetron HCl (Zofran) 4 mg PRN Q8HRS PRN 02/12/20 17:30 02/13/20 17:29 UNV Allergies: Allergies: Allergies Coded Allergies Type Severity Reaction Last Updated Verified No Known Drug Allergies 02/04/20 No Physical Exam: PE: Constitutional: Well developed, well nourished, no acute distress, non-toxic ap pearance. [] HENT: Normocephalic, atraumatic, bilateral external ears normal, oropharynx moist, no oral exudates, nose normal. [] Eyes: PERRLA, EOMI, conjunctiva normal, no discharge. [] Neck: Normal range of motion, no tenderness, supple, no stridor. [] Cardiovascular:Heart rate regular rhythm, no murmur [] Lungs & Thorax: Bilateral breath sounds clear to auscultation [] Abdomen: Bowel sounds normal, soft, no tenderness, no masses, no pulsatile masses. [] Skin: Warm, dry, no erythema, no rash. [] Back: No tenderness, no CVA tenderness. [] Extremities: Left knee with original surgical dressing, there is a wound VAC tubing on top of the dressing, there is no wound VAC. Patient states the wound VAC was removed on Monday because it was not working. There is moderate swelling noted on the left lower extremity especially from the knee to the foot. There is redness to the LLE. The dressing was opened, the laceration site is well approximated. There is no drainage. Adequate range of motion to the left knee. Neurologic: Alert and oriented X 3, normal motor function, normal sensory function, no focal deficits noted. [] Psychologic: Affect normal, judgement normal, mood normal. [] Current Patient Data: Labs: Laboratory Tests Test 02/12/20 16:10 White Blood Count 11.1 x10^3/uL (4.0-11.0) H Red Blood Count 3.49 x10^6/uL (4.30-5.70) L Hemoglobin 11.7 g/dL (13.0-17.5) L Hematocrit 34.1 % (39.0-53.0) L Mean Corpuscular Volume 98 fL (79-100) Mean Corpuscular Hemoglobin 34 pg (25-35) Mean Corpuscular Hemoglobin Concent 34 g/dL (31-37) Red Cell Distribution Width 13.5 % (11.5-14.5) Platelet Count 342 x10^3/uL (140-400) Neutrophils (%) (Auto) 71 % (31-73) Lymphocytes (%) (Auto) 16 % (24-48) L Monocytes (%) (Auto) 9 % (0-9) Eosinophils (%) (Auto) 4 % (0-3) H Basophils (%) (Auto) 1 % (0-3) Neutrophils # (Auto) 7.8 x10^3/uL (1.8-7.7) H Lymphocytes # (Auto) 1.8 x10^3/uL (1.0-4.8) Monocytes # (Auto) 1.0 x10^3/uL (0.0-1.1) Eosinophils # (Auto) 0.4 x10^3/uL (0.0-0.7) Basophils # (Auto) 0.1 x10^3/uL (0.0-0.2) Sodium Level 137 mmol/L (136-145) Potassium Level 4.0 mmol/L (3.5-5.1) Chloride Level 103 mmol/L (98-107) Carbon Dioxide Level 30 mmol/L (21-32) Anion Gap 4 (6-14) L Blood Urea Nitrogen 16 mg/dL (8-26) Creatinine 1.0 mg/dL (0.7-1.3) Estimated GFR (Cockcroft-Gault) 71.5 BUN/Creatinine Ratio 16 (6-20) Glucose Level 93 mg/dL (70-99) Lactic Acid Level 1.5 mmol/L (0.4-2.0) Calcium Level 8.5 mg/dL (8.5-10.1) Total Bilirubin 1.0 mg/dL (0.2-1.0) Aspartate Amino Transferase (AST) 27 U/L (15-37) Alanine Aminotransferase (ALT) 29 U/L (16-63) Alkaline Phosphatase 63 U/L (46-116) Total Protein 6.1 g/dL (6.4-8.2) L Albumin 2.5 g/dL (3.4-5.0) L Albumin/Globulin Ratio 0.7 (1.0-1.7) L Procalcitonin < 0.10 ng/mL (0.00-0.10) Laboratory Tests 02/12/20 16:10 Laboratory Tests 02/12/20 16:10 Vital Signs: Vital Signs Date Time Temp Pulse Resp B/P (MAP) Pulse Ox O2 Delivery O2 Flow Rate FiO2 02/12/20 15:20 98.2 78 20 127/71 (89) 98 Room Air 98.2 EKG: EKG: [] Radiology/Procedures: Radiology/Procedures: [] Course & Med Decision Making: Course & Med Decision Making Pertinent Labs and Imaging studies reviewed. (See chart for details) This is a 80-year-old male patient presenting to the ED today with left knee cellulites and left lower extremity swelling, patient had total knee replacement of the left knee on October 06, 2019. I called Dr. Talley who did the procedure and talked to him. Patient will be admitted. Dr. Talley requested we do not start patient in any antibiotics until labs are done and he goes through them. Spoke with Dr. Dick who accepted patient for admission. CBC with a WBC of 11.1, lactic is normal, CMP with no acute findings. Dragon Disclaimer: [place] Disclaimer: This electronic medical record was generated, in whole or in part, using a voice recognition dictation system. Departure Departure Impression: Primary Impression: Cellulitis of lower extremity Qualified Codes: L03.116 - Cellulitis of left lower limb Additional Impression: Lower extremity edema Disposition: ADMITTED INPATIENT Condition: STABLE Referrals: HUE GUILLERMO MD (PCP) Justicifation of Admission Dx: Justifications for Admission: Justification of Admission Dx: Yes Cellulitis: Cellulitis FERNANDO NORTH DOLLY PUSHER Feb 12, 2020 17:34
[2020-02-12 20:30] VITALS: BP 164/86
--- NOTE | 2020-02-12 20:30 | NUR ---
RN received report from ED RITIKA Sevilla. Pt. arrived on unit at 2030 by bed from ED. Pt. is A&Ox4, on room air and does not complain of pain at this time. Bed is in lowest position with call light within reach. Will continue to monitor throughout the night.
--- NOTE | 2020-02-12 21:20 | NUR ---
Dea was called this evening for an update. Patient code, room number and telephone number given to as well.
[2020-02-12 23:00] VITALS: BP 155/48
--- NOTE | 2020-02-13 00:16 | CONS ---
DATE OF CONSULTATION: 02/12/2020 REQUESTING PHYSICIAN: Madison German APRN., [facility]. REASON FOR CONSULTATION: Bilateral leg swelling and some left leg cellulitis following a left total knee arthroplasty on 02/04/2020. HISTORY OF PRESENT ILLNESS: The patient is an 80-year-old male who has had chronic bilateral lower extremity swelling exacerbated by the fact that he has not regularly taken his Lasix. He had total knee arthroplasty on 02/04/2020 and was advised preoperatively as well as postoperatively that he really needs to be faithful to be taking his Lasix. His had noted that he was having significant swelling prior to his procedure in both legs. I went over with him that this is more related to fluid retention and heart problems and postoperatively I had the Cardiology Department provider see him in the absence of Dr. Salvador who normally follows him to emphasize compliance with his diuretics or to institute a new program for him in terms of better controlling his lower extremity swelling. I had told him at that time that he really needs to be very compliant or he could risk lot of swelling and wound healing complications and possibly infection in his left knee. He continues, however, to be noncompliant with his Lasix because he hates going to the bathroom too much and specifically did not take his Lasix this morning. He came into the Emergency Department at the request of his home health nurse, who noticed more swelling and some redness in the left leg, he denies any febrile illness. PAST MEDICAL HISTORY: Atrial fibrillation, hypertension, hypercholesterolemia. PAST SURGICAL HISTORY: Left knee replacement surgery. SOCIAL HISTORY: He indicates that he is still smoking despite having promised to quit prior to his knee surgery. Denies alcohol or drug use. ALLERGIES: He has no known drug allergies. REVIEW OF SYSTEMS: Just noting the swelling in his legs. He has overall good results with the knee arthroplasty and is getting around quite well with a lot less pain than what he had preoperatively. Again, denies any fever, chills, other constitutional symptoms, has frequent urination as he has complained about before. PHYSICAL EXAMINATION: LEFT KNEE: He has only a small effusion. There is very little evidence of drainage on his postoperative JULIANA dressing. There is no redness at all around the surgical wound. Likewise, none around the drain site that had been draining as reported by his home health nurse and that drainage had quit. He does have some cellulitis in the lower portion of the extremity, distal portion of the leg in particular; it really does not extend up to the surgical site. He has severe swelling in both legs. It is baseline, quite severe and worse actually in the right lower extremity than the left. He has good range of motion of the knee. Good patellofemoral tracking, ligament stability and intact distal neurovascular status. VITAL SIGNS: Temperature 98.2, pulse 78, respirations 20, blood pressure 127/71, 98% saturation on room air. LABORATORY DATA: Shows a white count of 11.1, hemoglobin 11.7, hematocrit 34.1, neutrophils of 71%. IMPRESSION: 1. Bilateral lower extremity swelling. 2. Left leg cellulitis. 3. History of total knee arthroplasty 8 days ago. TREATMENT PLAN: I went over with him that he appears to have some cellulitis in the lower extremity, likely exacerbated by his swelling. I do not see any evidence of direct infection concern with his left knee as he only has a tiny amount of serosanguineous drainage in the JULIANA dressing, which was otherwise well-sealed. I did remind him sternly however that we had previously talked about the necessity of controlling his swelling better by maintaining his recommended dosage of Lasix or other diuretic plan and the fact that he is having this ongoing severe swelling can be a severe infection risk and if he really does not pay more attention to this that he could end up getting an infection and maybe even losing his leg as a result. He was alarmed, but I did again remind him that we had discussed this preoperatively about his swelling and how he had to keep it under control and I even had the cardiology staff in the absence of Dr. Salvador come and consult on him and work out a plan before his discharge about how he was to be compliant with his regimen or that they could discuss a different regimen that works better for him if he is having difficulties with frequent urination, but we have to keep his swelling under better control both in terms of possibility of him having congestive heart failure or other problems like that, but in addition, potential wound complications and infection. He promised to comply going forward at this point. I did indicate that although I do not really suspect infection, I would suggest an aspiration of his knee and after informed consent was obtained, his left knee was aspirated for serosanguineous fluid; it had no cloudiness whatsoever to it of about 20 mL, which was sent down for stat cell count, aerobic and anaerobic cultures at that time, he was not on any type of antibiotics whatsoever and had not been since his one day of postoperative antibiotics. Therefore, has been off of them for a week. I told him he should be treated for the cellulitis in his leg and in addition to managing his fluids and swelling and other evaluation per the medicine service, but again I do not anticipate at this point based on the appearance of the fluid any type of significant concern for deep infection or need for surgical intervention unless the cell count or cultures are very abnormal. All his questions were answered at this point. I will continue to follow along from an orthopedic standpoint, particularly with cell count and cultures. ARTIE KEE MD DR: JAMES/emelyn JOB#: [id number] / [id number]
--- NOTE | 2020-02-13 00:36 | PDOC1 ---
History and Physical Date of Admission Date of Admission DATE: 02/12/20 TIME: 22:18 Identification/Chief Complaint Chief Complaint Red Leg Source Source: Patient History of Present Illness History of Present Illness Patient is a 80 yo male who present with complaint of a "red leg" for the past 8 days. He had a left total knee arthroplasty on 02/04/20 . He states his leg gas been "red" since that time, but notes worsening erythema over the past week. He admits to some associated leg swelling and "tightness", but denies any significant pain. Denies any aggravating or alleviating factors. Denies fever. Past Medical History Cardiovascular: AFIB, HTN, Hyperlipidemia CENTRAL NERVOUS SYSTEM: CVA GI: GERD Psych: Anxiety, Depression Musculoskeletal: Osteoarthritis Renal/: Chronic renal insuff Past Surgical History Past Surgical History: Cataract Removal, Hernia Repair, Total knee replacement, Tonsillectomy Family History Family History: High Cholestrol, Hypertension, Stroke Social History ALCOHOL: social Drugs: None Current Problem List Problem List Problems Medical Problems: (1) Cellulitis of lower extremity Status: Acute (2) Infection of left knee Status: Acute (3) Lower extremity edema Status: Acute Current Medications Current Medications Current Medications Ondansetron HCl (Zofran) 4 mg PRN Q8HRS PRN IV NAUSEA/VOMITING; Start 02/12/20 at 17:30; Stop 02/13/20 at 17:29 Morphine Sulfate (Morphine Sulfate) 4 mg PRN Q2HR PRN IV PAIN; Start 02/12/20 at 17:30; Stop 02/13/20 at 17:29 Acetaminophen (Tylenol) 650 mg PRN Q4HRS PRN PO FEVER > 100.3'F; Start 02/12/20 at 17:30; Stop 02/13/20 at 17:29 Active Scripts Active Percocet 5-325 mg Tablet (Oxycodone HCl/Acetaminophen) 1 Each Tablet 1 Each PO PRN Q4HRS PRN Reported [POTASSIUM 99 MG otc] Furosemide 40 Mg Tablet 1 Tab PO DAILY Children's Aspirin (Aspirin) 81 Mg Tab.chew 1 Tab PO DAILY 30 Days Mirapex (Pramipexole Di-Hcl) 0.25 Mg Tablet 1 Mg PO DAILY Cymbalta (Duloxetine Hcl) 30 Mg Capsule.dr 1 Cap PO DAILY Losartan Potassium 100 Mg Tablet 100 Mg PO DAILY Ferrous Sulfate 325 Mg Tablet 325 Mg PO TIDAFTMEAL Warfarin Sodium 3 Mg Tablet 3 Mg PO HS Atorvastatin Calcium 40 Mg Tablet 40 Mg PO HS Diltiazem 24HR Er (Diltiazem Hcl) 240 Mg Cap.er.24h 240 Mg PO DAILY07 Metoprolol Succinate ( Xl ) (Metoprolol Succinate) 25 Mg Tab.er.24h 12.5 Mg PO DAILY08 Tamsulosin Hcl 0.4 Mg Cap.er.24h 0.8 Mg PO DAILYBFRSUP Allergies Allergies: Coded Allergies: No Known Drug Allergies (Unverified , 02/04/20) ROS General: No: Chills, Night Sweats, Fatigue, Malaise, Appetite, Other Eyes: No Blurry vision, No Decreased vision, No Double vision, No Dry eyes, No Excessive tearing, No Eye Pain, No Itchy Eyes, No Loss of vision, No Photophobia, No Scotomata, No Uses contacts, No Uses glasses, No Other HEENT: No: Heacaches, Visual Changes, Hearing change, Nasal congestion, Nasal discharge, Oral lesions, Sinus pain, Sore Throat, Epistaxis, Sneezing, Snoring, Tinnitus, Vertigo, Vocal changes, Other ALLERGY AND IMMUNOLOGY: No: Hives, Insect Bite Sensitivity, Itchy/Watery Eyes, Nasal Congestion, Post Nasal Drip, Seasonal Allergies, Other Hematological and Lymphatic: No: Bleeding Problems, Blood Clots, Blood Transfusions, Brusing, Night Sweats, Pallor, Swollen Lymph Nodes, Other Respiratory: No: Cough, Hemoptysis, Orthopnea, Pleuritic Pain, Shortness of breath, SOB with excertion, Sputum Changes, Stridor, Tachypnea, Wheezing, Other Gastrointestinal: No Nausea, No Vomiting, No Abdominal Pain, No Diarrhea, No Constipation, No Melena, No Hematochezia, No Other Musculoskeletal: Yes Swelling In: (Left lower leg); No Gait Disturbance, No Joint Pain, No Joint Stiffness, No Joint Swelling, No Muscle Pain, No Muscular Weakness, No Pain In:, No Other Neurological: No Behavorial Changes, No Bowel/Bladder ControlChng, No Confusion, No Dizziness, No Gait Disturbance, No Headaches, No Impaired Coord/balance, No Memory Loss, No Numbness/Tingling, No Seizures, No Speech Problems, No Tremors, No Visual Changes, No Weakness, No Other Skin: Yes Rash Vitals Vitals Vital Signs Date Time Temp Pulse Resp B/P (MAP) Pulse Ox O2 Delivery O2 Flow Rate FiO2 02/12/20 19:58 74 21 145/64 (91) 99 Room Air 02/12/20 15:20 98.2 98.2 Labs Labs Laboratory Tests Test 02/12/20 16:10 White Blood Count 11.1 x10^3/uL (4.0-11.0) Red Blood Count 3.49 x10^6/uL (4.30-5.70) Hemoglobin 11.7 g/dL (13.0-17.5) Hematocrit 34.1 % (39.0-53.0) Mean Corpuscular Volume 98 fL (79-100) Mean Corpuscular Hemoglobin 34 pg (25-35) Mean Corpuscular Hemoglobin Concent 34 g/dL (31-37) Red Cell Distribution Width 13.5 % (11.5-14.5) Platelet Count 342 x10^3/uL (140-400) Neutrophils (%) (Auto) 71 % (31-73) Lymphocytes (%) (Auto) 16 % (24-48) Monocytes (%) (Auto) 9 % (0-9) Eosinophils (%) (Auto) 4 % (0-3) Basophils (%) (Auto) 1 % (0-3) Neutrophils # (Auto) 7.8 x10^3/uL (1.8-7.7) Lymphocytes # (Auto) 1.8 x10^3/uL (1.0-4.8) Monocytes # (Auto) 1.0 x10^3/uL (0.0-1.1) Eosinophils # (Auto) 0.4 x10^3/uL (0.0-0.7) Basophils # (Auto) 0.1 x10^3/uL (0.0-0.2) Sodium Level 137 mmol/L (136-145) Potassium Level 4.0 mmol/L (3.5-5.1) Chloride Level 103 mmol/L (98-107) Carbon Dioxide Level 30 mmol/L (21-32) Anion Gap 4 (6-14) Blood Urea Nitrogen 16 mg/dL (8-26) Creatinine 1.0 mg/dL (0.7-1.3) Estimated GFR (Cockcroft-Gault) 71.5 BUN/Creatinine Ratio 16 (6-20) Glucose Level 93 mg/dL (70-99) Lactic Acid Level 1.5 mmol/L (0.4-2.0) Calcium Level 8.5 mg/dL (8.5-10.1) Total Bilirubin 1.0 mg/dL (0.2-1.0) Aspartate Amino Transf (AST/SGOT) 27 U/L (15-37) Alanine Aminotransferase (ALT/SGPT) 29 U/L (16-63) Alkaline Phosphatase 63 U/L (46-116) Total Protein 6.1 g/dL (6.4-8.2) Albumin 2.5 g/dL (3.4-5.0) Albumin/Globulin Ratio 0.7 (1.0-1.7) Procalcitonin < 0.10 ng/mL (0.00-0.10) Laboratory Tests Test 02/12/20 16:10 White Blood Count 11.1 x10^3/uL (4.0-11.0) Red Blood Count 3.49 x10^6/uL (4.30-5.70) Hemoglobin 11.7 g/dL (13.0-17.5) Hematocrit 34.1 % (39.0-53.0) Mean Corpuscular Volume 98 fL (79-100) Mean Corpuscular Hemoglobin 34 pg (25-35) Mean Corpuscular Hemoglobin Concent 34 g/dL (31-37) Red Cell Distribution Width 13.5 % (11.5-14.5) Platelet Count 342 x10^3/uL (140-400) Neutrophils (%) (Auto) 71 % (31-73) Lymphocytes (%) (Auto) 16 % (24-48) Monocytes (%) (Auto) 9 % (0-9) Eosinophils (%) (Auto) 4 % (0-3) Basophils (%) (Auto) 1 % (0-3) Neutrophils # (Auto) 7.8 x10^3/uL (1.8-7.7) Lymphocytes # (Auto) 1.8 x10^3/uL (1.0-4.8) Monocytes # (Auto) 1.0 x10^3/uL (0.0-1.1) Eosinophils # (Auto) 0.4 x10^3/uL (0.0-0.7) Basophils # (Auto) 0.1 x10^3/uL (0.0-0.2) Sodium Level 137 mmol/L (136-145) Potassium Level 4.0 mmol/L (3.5-5.1) Chloride Level 103 mmol/L (98-107) Carbon Dioxide Level 30 mmol/L (21-32) Anion Gap 4 (6-14) Blood Urea Nitrogen 16 mg/dL (8-26) Creatinine 1.0 mg/dL (0.7-1.3) Estimated GFR (Cockcroft-Gault) 71.5 BUN/Creatinine Ratio 16 (6-20) Glucose Level 93 mg/dL (70-99) Lactic Acid Level 1.5 mmol/L (0.4-2.0) Calcium Level 8.5 mg/dL (8.5-10.1) Total Bilirubin 1.0 mg/dL (0.2-1.0) Aspartate Amino Transf (AST/SGOT) 27 U/L (15-37) Alanine Aminotransferase (ALT/SGPT) 29 U/L (16-63) Alkaline Phosphatase 63 U/L (46-116) Total Protein 6.1 g/dL (6.4-8.2) Albumin 2.5 g/dL (3.4-5.0) Albumin/Globulin Ratio 0.7 (1.0-1.7) Procalcitonin < 0.10 ng/mL (0.00-0.10) VTE Prophylaxis Ordered VTE Prophylaxis Devices: No VTE Pharmacological Prophylaxi: Yes Assessment/Plan Assessment/Plan Patient presents with concerns for infected hardware in left knee. He is currently stable, with only mildly elevated WBC. The ER has spoken with Dr. Talley, who would like to hold off on antibiotics until cultures can be obtained form patient's knee. Will order US LLE to evaluate for DVT. VTE prophylaxis. Full code. Justicifation of Admission Dx: Justifications for Admission: Justification of Admission Dx: Yes Cellulitis: Cellulitis KARLA HANNAH MD Feb 13, 2020 00:36
[2020-02-13 00:43] LABS: BF CLARITY TURBID; BF COLOR RED; BF MON % 3 %; BF PMN % 97 %; BF RBC COUNT 30000 /cmm (Not Established); BF SOURCE SYNOVIAL; BF WBC COUNT 6250 /cmm (Not Established)
[2020-02-13 03:00] VITALS: BP 167/66
[2020-02-13 07:00] VITALS: BP 163/54
--- NOTE | 2020-02-13 07:25 | RAD ---
INDICATION: Reason: Leg swelling, r/o DVT / Spl. Instructions: / History: COMPARISON: None. TECHNIQUE: Grayscale, color and doppler ultrasound images were obtained of the left lower extremity venous vasculature. LEFT: No thrombus identified in the common femoral vein, femoral vein, popliteal vein or visualized calf veins. IMPRESSION: * No thrombus identified in deep venous system of the left lower extremity. * Edema of soft tissues. Electronically signed by: Santi Santos MD (02/13/2020 7:22 AM) [id number]
[2020-02-13] MEDS: DULoxetine HCL 30 MG CAPSULE.DR PO SCH (08:37)
[2020-02-13] MEDS: ASPIRIN CHEWABLE 81 MG TABLET. PO SCH (08:37)
[2020-02-13] MEDS: PRAMIPEXOLE 0.25 MG TABLET. PO SCH (08:37)
[2020-02-13] MEDS: FUROSEMIDE 40 MG TABLET. PO SCH (08:38)
[2020-02-13] MEDS: LOSARTAN POTASSIUM 50 MG TABLET. PO SCH (08:38)
[2020-02-13] MEDS: FERROUS SULFATE 325 MG TABLET. PO SCH ×3 (08:38→17:26)
[2020-02-13] MEDS: METOPROLOL SUCC 24HR ER 25 MG TAB.ER.24H. PO SCH (08:39)
[2020-02-13 09:19] LABS: BASO # 0.1 x10^3/uL (0.0-0.2); BASO % 1 % (0-3); EOS # 0.5 x10^3/uL (0.0-0.7); EOS % 6 % (0-3); HEMATOCRIT 34.1 % (39.0-53.0); HEMOGLOBIN 11.6 g/dL (13.0-17.5); LYMPH # 2.1 x10^3/uL (1.0-4.8); LYMPH % 21 % (24-48); MEAN CORPUSCULAR HEMOGLOBIN 34 pg (25-35); MEAN CORPUSCULAR HGB CONC 34 g/dL (31-37); MEAN CORPUSCULAR VOLUME 99 fL (79-100); MONO # 0.8 x10^3/uL (0.0-1.1); MONO % 8 % (0-9); NEUT # 6.4 x10^3/uL (1.8-7.7); NEUT % 65 % (31-73); PLATELET COUNT 330 x10^3/uL (140-400); RED BLOOD COUNT 3.45 x10^6/uL (4.30-5.70); RED CELL DISTRIBUTION WIDTH 13.7 % (11.5-14.5); WHITE BLOOD COUNT 9.9 x10^3/uL (4.0-11.0)
[2020-02-13 09:38] LABS: PROTHROMBIN TIME PATIENT 14.8 SEC (11.7-14.0)
--- NOTE | 2020-02-13 09:55 | NUR ---
SW following. Discussed with RN, pt from home with , room air, cardiac diet, uses walker at home. Pt having surgery tomorrow on knee. Pt current with [facility]. SW will continue to follow.
[2020-02-13 10:17] LABS: ALBUMIN 2.3 g/dL (3.4-5.0); ALBUMIN/GLOBULIN RATIO 0.7 (1.0-1.7); CALCIUM 8.3 mg/dL (8.5-10.1); GFR 71.5; POTASSIUM 4.2 mmol/L (3.5-5.1); TOTAL BILIRUBIN 1.1 mg/dL (0.2-1.0); TOTAL PROTEIN 5.7 g/dL (6.4-8.2)
[2020-02-13 11:00] VITALS: BP 134/66
[2020-02-13 15:00] VITALS: BP 114/58
[2020-02-13] MEDS: WARFARIN 3 MG TABLET. PO SCH (17:26)
[2020-02-13] MEDS: TAMSULOSIN 0.4 MG CAP.ER.24H. PO SCH (17:26)
[2020-02-13 19:00] VITALS: BP 111/53
--- NOTE | 2020-02-13 19:28 | NUR ---
This RN did not realize date on admission documentation was set for 02/10 but patient came to floor at 2030 on 02/12/20.
[2020-02-13] MEDS: ATORVASTATIN CALCIUM 40 MG TABLET. PO SCH (21:39)
[2020-02-13] MEDS: oxyCODONE/APAP 5/325 1 TAB TABLET PO PRN (21:39)
[2020-02-13 23:00] VITALS: BP 141/67
--- NOTE | 2020-02-13 23:31 | PN ---
DATE: 02/13/2020 ORTHOPEDIC PROGRESS NOTE CHIEF COMPLAINT: Followup on bilateral leg swelling with some left leg redness. HISTORY OF PRESENT ILLNESS: He continues to have significant bilateral leg swelling, tolerated the aspiration procedure well. He was evaluated by hospitalist doctor last evening. OBJECTIVE: On physical examination, he continues to have some cellulitis in the left lower part of the leg. No significant drainage from his incision at all nor from the aspiration of previous drain sites. Compartments are soft. He has overall good ligament balance and motion is limited only by his leg swelling bilaterally. Laboratory examination from his knee joint aspirate, cultures are pending, both aerobic and anaerobic. The cell count from the aspirate showed greater than 5000 white blood cells and about 71% neutrophils. IMPRESSION: Elevated white count on knee joint aspirate status post total knee arthroplasty, 1 week out, and cellulitis of left leg with severe bilateral leg swelling. TREATMENT PLAN: I went over with him that certainly with his leg swelling and cellulitis, there are significant risk factors for infection. Unfortunately, his cell count came back over the recommended threshold to really definitively rule out infection. Although clinically otherwise the knee joint does not display drainage or redness around the incision area. The rest of his leg is certainly concerning with the redness distally and swelling and with measurement of the white count on aspirate certainly is concerning for high risk of infection and I evaluated really the risk of doing nothing aside from antibiotics to treat his cellulitis versus the risk of an operation to wash out the knee joints, exchange of the polyethylene, and placed him on antibiotics. I think there is a significant chance of developing a deep infection in the knee and that should be addressed aggressively as soon as possible. He agreed with this approach and we are planning surgical debridement first thing tomorrow morning due to OR availability along with my schedule. Therefore, n.p.o. past midnight, night. ARTIE KEE MD DR: JAMES/emelyn JOB#: [id number] / [id number]
[2020-02-14] VITALS (13 sets, daily range): BP systolic 100–154; BP diastolic 50–82
[2020-02-14] MEDS: oxyCODONE/APAP 5/325 1 TAB TABLET PO PRN ×3 (03:59→20:49)
[2020-02-14] MEDS ORDERED: LIDOCAINE 2% PF 5 ML VIAL. ONE (06:38)
[2020-02-14] MEDS ORDERED: PROPOFOL 10 MG/ML (20ML) VIAL. IV ONE (06:38)
[2020-02-14] MEDS ORDERED: PROCHLORPERAZINE 10 MG/2 ML VIAL. IV PRN ×2 (07:00→09:00)
[2020-02-14] MEDS ORDERED: IV RINGERS,LACTATED 1000ML 1,000 ML IV SCH ×2 (07:00→08:55)
[2020-02-14] MEDS ORDERED: fentaNYL PF VIAL 100 MCG/2 ML VIAL ONE ×2 (07:04→09:14)
--- NOTE | 2020-02-14 07:05 | NUR ---
0630 PACU called RN for report. Dea (patient's ) was notified about time of surgery and where waiting room is.
[2020-02-14] MEDS ORDERED: SUCCINYLCHOLINE 200 MG/10 ML VIAL. ONE (07:21)
[2020-02-14] MEDS ORDERED: ONDANSETRON PF 4 MG/2 ML VIAL. ONE (07:21)
[2020-02-14] MEDS ORDERED: DEXAMETHASONE SOD PHOS 4 MG/ML VIAL ONE (07:21)
[2020-02-14] MEDS ORDERED: ROCURONIUM 50 MG/5 ML VIAL. ONE (07:22)
[2020-02-14] MEDS ORDERED: MORPHINE SULFATE 5 MG, KETOROLAC 30MG VIAL 30 MG, ROPIVacaine 0.5% PF 60 ML, EPINEPHrin... INT ART ONE (08:00)
[2020-02-14] MEDS ORDERED: SEVOFLURANE 31 TO 60 MINUTES. IH ONE (08:21)
[2020-02-14] MEDS ORDERED: VANCOMYCIN 10GM VIAL for OR. ONE ×2 (08:24→08:25)
[2020-02-14] MEDS ORDERED: NEOSTIGMINE METHYLSULFATE 5 MG/5 ML SYRINGE. ONE (08:26)
[2020-02-14] MEDS ORDERED: GLYCOPYRROLATE 1 MG/5 ML VIAL. ONE (08:26)
[2020-02-14] MEDS ORDERED: ceFAZolin SODIUM IV Push 1 GM VIAL. IVP ONE (08:27)
[2020-02-14] MEDS ORDERED: fentaNYL PF VIAL 100 MCG/2 ML VIAL IV PRN ×2 (09:00)
[2020-02-14] MEDS ORDERED: MORPHINE SULFATE 2 MG/ML VIAL. IV PRN (09:00)
[2020-02-14] MEDS ORDERED: ONDANSETRON PF 4 MG/2 ML VIAL. IV PRN (09:00)
[2020-02-14] MEDS ORDERED: LIDOCAINE 1% PF 2 ML VIAL. ID PRN (09:00)
[2020-02-14] MEDS ORDERED: HYDROmorphone 2 MG/ML VIAL IV PRN (09:00)
--- NOTE | 2020-02-14 09:36 | PDOC4 ---
Operative Note Operative Note Date of surgery: 02/14/2020 Preoperative diagnosis: Left leg swelling cellulitis and possible infection based on aspiration white blood cell count Postoperative diagnosis: Same with no evidence of gross intra-articular infection Operative procedure: Irrigation debridement of left knee with exchange of polyethylene tibial component Surgeon: Gerri Hammer Runner: Jameson livingston Anesthesia: General Estimated blood loss: 25 cc Complications: None Intraoperative deep tissue culture was sent Operative indications: Patient is an 80-year-old male that was admitted 1 week after total knee arthroplasty with severe bilateral leg swelling and left leg cellulitis after being noncompliant with taking his Lasix. His left knee was aspirated despite no evidence of drainage or redness around the incision and white cell count was over the threshold of potential concern for infection and I went over with him that I recommend irrigation debridement and cultures because if he does have deep infection it should be treated aggressively early. I also emphasized the necessity of being compliant with his medications keeping the swelling down and minimizing any potential wound complications going forward. A ll his questions were answered he agrees to proceed with surgical evaluation and treatment. Operative text: Patient was identified procedure verified patient placed in the supine position on operating table. After adequate amounts of general anesthesia were administered the left lower extremity was prepped and draped in standard sterile fashion with a thigh tourniquet. After timeout was performed patient procedure identified and verified the tourniquet was inflated to 350 mmHg midline incision was made with a medial parapatellar approach. No devitalized tissue or gross signs of infection were noted. Deep tissue culture was taken next to the femur bone. The polyethylene tibial component was removed and any fibrinous tissue was completely debrided and irrigation carried out with bactisure a total of 1 L followed by 2 L of normal saline solution with pulse lavage. The polyethylene tibial component replacement 18 mm was snapped into place and 2 g of vancomycin were placed in the wound and medial approach was closed with running #1 PDS strata fix suture a total of 2 in all. Subcutaneous closure with buried PDS suture skin closure with libra ginger dressing was placed patient was returned to recovery room in stable condition having tolerated procedure well. Toes were noted be warm pink following deflation of the tourniquet. Jameson livingston was present for the procedure and assisted in the patient positioning prepping draping retraction closure and dressings ARTIE KEE MD Feb 14, 2020 09:36
--- NOTE | 2020-02-14 09:43 | NUR ---
SW following. Discussed with RN, pt having surgery today. Pt current with [facility]. SW will continue to follow.
[2020-02-14] MEDS: FERROUS SULFATE 325 MG TABLET. PO SCH ×3 (12:50→17:53)
[2020-02-14] MEDS: FUROSEMIDE 40 MG TABLET. PO SCH (12:51)
[2020-02-14] MEDS: PRAMIPEXOLE 0.25 MG TABLET. PO SCH (12:51)
[2020-02-14] MEDS: ASPIRIN CHEWABLE 81 MG TABLET. PO SCH (12:51)
[2020-02-14] MEDS: DULoxetine HCL 30 MG CAPSULE.DR PO SCH (12:51)
[2020-02-14] MEDS: METOPROLOL SUCC 24HR ER 25 MG TAB.ER.24H. PO SCH (12:52)
[2020-02-14] MEDS: LOSARTAN POTASSIUM 50 MG TABLET. PO SCH (12:53)
--- NOTE | 2020-02-14 16:48 | PDOC ---
PROGRESS NOTES Date of Service: DATE: 02/14/20 TIME: 16:46 Chief Complaint Chief Complaint Leg erythema, leg swelling History of Present Illness History of Present Illness Patient seen and evaluated at bedside. Status post irrigation debridement of left knee. Patient denies significant pain. He was able to walk with physical therapy. Denies any fever, chills, nausea Vitals Vitals Vital Signs Date Time Temp Pulse Resp B/P (MAP) Pulse Ox O2 Delivery O2 Flow Rate FiO2 02/14/20 15:15 98.1 95 18 140/66 (90) 95 Room Air 98.1 02/14/20 11:33 2.0 Physical Exam General: Alert, No acute distress Heart: Regular rate, Normal S1, Normal S2 Lungs: Clear Abdomen: Soft, No tenderness Extremities: No cyanosis, Other (Left lower extremity wrapped in bandage) Skin: No rashes, No significant lesion Labs LABS Laboratory Tests Test 02/13/20 18:00 SARS-CoV-2 Antigen (Rapid) Negative (NEGATIVE) Review of Systems Review of Systems Minimal leg pain. Denies fever, denies chills, denies nausea, denies vomiting. Assessment and Plan Assessmemt and Plan Problems Medical Problems: (1) Cellulitis of lower extremity Status: Acute (2) Infection of left knee Status: Acute (3) Lower extremity edema Status: Acute (4) Severe malnutrition Status: Acute Plan: S/P irrigation debridement of left knee with exchange of polyethylene tibial component, no evidence of gross intra-articular infection. PT/OT. Comment Review of Relevant I have reviewed the following items deyvi (where applicable) has been applied. Labs Laboratory Tests Test 02/12/20 23:19 02/13/20 08:58 02/13/20 18:00 Body Fluid Source Synovial Body Fluid Color Red Body Fluid Clarity Turbid Body Fluid Nucleated Cells 6250 /cmm (Not Established) Body Fluid Mononuclear WBCs (%) 3 % Body Fluid Polymorphonuclear Cells 97 % Body Fluid Total RBCs Counted 55847 /cmm (Not White Blood Count 9.9 x10^3/uL (4.0-11.0) Red Blood Count 3.45 x10^6/uL (4.30-5.70) Hemoglobin 11.6 g/dL (13.0-17.5) Hematocrit 34.1 % (39.0-53.0) Mean Corpuscular Volume 99 fL (79-100) Mean Corpuscular Hemoglobin 34 pg (25-35) Mean Corpuscular Hemoglobin Concent 34 g/dL (31-37) Red Cell Distribution Width 13.7 % (11.5-14.5) Platelet Count 330 x10^3/uL (140-400) Neutrophils (%) (Auto) 65 % (31-73) Lymphocytes (%) (Auto) 21 % (24-48) Monocytes (%) (Auto) 8 % (0-9) Eosinophils (%) (Auto) 6 % (0-3) Basophils (%) (Auto) 1 % (0-3) Neutrophils # (Auto) 6.4 x10^3/uL (1.8-7.7) Lymphocytes # (Auto) 2.1 x10^3/uL (1.0-4.8) Monocytes # (Auto) 0.8 x10^3/uL (0.0-1.1) Eosinophils # (Auto) 0.5 x10^3/uL (0.0-0.7) Basophils # (Auto) 0.1 x10^3/uL (0.0-0.2) Prothrombin Time 14.8 SEC (11.7-14.0) Prothromb Time International Ratio 1.2 (0.8-1.1) Sodium Level 136 mmol/L (136-145) Potassium Level 4.2 mmol/L (3.5-5.1) Chloride Level 101 mmol/L (98-107) Carbon Dioxide Level 32 mmol/L (21-32) Anion Gap 3 (6-14) Blood Urea Nitrogen 11 mg/dL (8-26) Creatinine 1.0 mg/dL (0.7-1.3) Estimated GFR (Cockcroft-Gault) 71.5 BUN/Creatinine Ratio 11 (6-20) Glucose Level 132 mg/dL (70-99) Calcium Level 8.3 mg/dL (8.5-10.1) Total Bilirubin 1.1 mg/dL (0.2-1.0) Aspartate Amino Transf (AST/SGOT) 26 U/L (15-37) Alanine Aminotransferase (ALT/SGPT) 28 U/L (16-63) Alkaline Phosphatase 60 U/L (46-116) Total Protein 5.7 g/dL (6.4-8.2) Albumin 2.3 g/dL (3.4-5.0) Albumin/Globulin Ratio 0.7 (1.0-1.7) SARS-CoV-2 Antigen (Rapid) Negative (NEGATIVE) Laboratory Tests Test 02/13/20 18:00 SARS-CoV-2 Antigen (Rapid) Negative (NEGATIVE) Microbiology 02/12/20 Gram Stain - Final, Resulted 02/12/20 Aerobic and Anaerobic Culture - Preliminary, Resulted 02/12/20 Blood Culture - Preliminary, Resulted NO GROWTH AFTER 2 DAYS Medications Current Medications Ondansetron HCl (Zofran) 4 mg PRN Q8HRS PRN IV NAUSEA/VOMITING; Start 02/12/20 at 17:30; Stop 02/13/20 at 17:29; Status DC Morphine Sulfate (Morphine Sulfate) 4 mg PRN Q2HR PRN IV PAIN Last administered on 02/13/20at 04:06; Start 02/12/20 at 17:30; Stop 02/13/20 at 17:29; Status DC Acetaminophen (Tylenol) 650 mg PRN Q4HRS PRN PO FEVER > 100.3'F; Start 02/12/20 at 17:30; Stop 02/13/20 at 17:29; Status DC Aspirin (Aspirin Chewable) 81 mg DAILYWBKFT PO Last administered on 02/14/20at 12:51; Start 02/13/20 at 08:00 Atorvastatin Calcium (Lipitor) 40 mg HS PO Last administered on 02/13/20at 21:39; Start 02/13/20 at 21:00 Diltiazem HCl (Cardizem 24hr Cd) 240 mg DAILY07 PO Last administered on 02/14/20at 12:53; Start 02/13/20 at 07:00 Duloxetine HCl (Cymbalta) 30 mg DAILY PO Last administered on 02/14/20at 12:51; Start 02/13/20 at 09:00 Ferrous Sulfate (Feosol) 325 mg TIDAFTMEAL PO Last administered on 02/14/20at 12:50; Start 02/13/20 at 09:00 Furosemide (Lasix) 40 mg DAILY PO Last administered on 02/14/20at 12:51; Start 02/13/20 at 09:00 Metoprolol Succinate (Toprol Xl) 12.5 mg DAILY08 PO Last administered on 02/14/20at 12:52; Start 02/13/20 at 08:00 Oxycodone/ Acetaminophen (Percocet 5/325) 1 tab PRN Q4HRS PRN PO PAIN Last administered on 02/14/20at 12:57; Start 02/13/20 at 01:00 Pramipexole Dihydrochloride (miraPEX) 1 mg DAILY PO Last administered on 02/14/20at 12:51; Start 02/13/20 at 09:00 Tamsulosin HCl (Flomax) 0.8 mg DAILYBFRSUP PO Last administered on 02/13/20 17:26; Start 02/13/20 at 17:00 Warfarin Sodium (Coumadin) 3 mg DAILY16 PO Last administered on 02/13/20at 17:26; Start 02/13/20 at 16:00 Losartan Potassium (Cozaar) 100 mg DAILY PO Last administered on 02/14/20at 12:53; Start 02/13/20 at 09:00 Warfarin Sodium (Coumadin Per Physician) 1 each PRN DAILY PRN MC SEE COMMENTS; Start 02/13/20 at 10:00 Ringer's Solution 1,000 ml @ 30 mls/hr Q24H IV ; Start 02/14/20 at 07:00; Stop 02/14/20 at 18:59 Prochlorperazine Edisylate (Compazine) 5 mg PACU PRN PRN IV NAUSEA, MRX1; Start 02/14/20 at 07:00; Stop 02/15/20 at 06:59 Propofol (Diprivan) 200 mg STK-MED ONCE IV ; Start 02/14/20 at 06:38; Stop 02/14/20 at 06:38; Status DC Lidocaine HCl (Lidocaine Pf 2% Vial) 5 ml STK-MED ONCE .ROUTE ; Start 02/14/20 at 06:38; Stop 02/14/20 at 06:38; Status DC Fentanyl Citrate (Fentanyl 2ml Vial) 100 mcg STK-MED ONCE .ROUTE ; Start 02/14/20 at 07:04; Stop 02/14/20 at 07:04; Status DC Morphine Sulfate 5 mg/Ketorolac Tromethamine 30 mg/Ropivacaine 60 ml/Epinephrine HCl 0.5 mg/Sodium Chloride 100 ml @ 100 mls/hr 1X ONCE INT ART ; Start 02/14/20 at 08:00; Stop 02/14/20 at 08:59; Status DC Dexamethasone Sodium Phosphate (Decadron) 4 mg STK-MED ONCE .ROUTE ; Start 02/14/20 at 07:21; Stop 02/14/20 at 07:22; Status DC Ondansetron HCl (Zofran) 4 mg STK-MED ONCE .ROUTE ; Start 02/14/20 at 07:21; Stop 02/14/20 at 07:22; Status DC Succinylcholine Chloride (Anectine) 200 mg STK-MED ONCE .ROUTE ; Start 02/14/20 at 07:21; Stop 02/14/20 at 07:22; Status DC Rocuronium [place] (Zemuron) 50 mg STK-MED ONCE .ROUTE ; Start 02/14/20 at 07:22; Stop 02/14/20 at 07:22; Status DC Sevoflurane (Ultane) 30 ml STK-MED ONCE IH ; Start 02/14/20 at 08:21; Stop 02/14/20 at 08:21; Status DC Vancomycin HCl (VANCO for OR ONLY) 10 gm STK-MED ONCE .ROUTE Last administered on 02/14/20at 08:08; Start 02/14/20 at 08:24; Stop 02/14/20 at 08:25; Status DC Vancomycin HCl (VANCO for OR ONLY) 10 gm STK-MED ONCE .ROUTE ; Start 02/14/20 at 08:25; Stop 02/14/20 at 08:25; Status DC Neostigmine [place] (Neostigmine Methylsulfate) 5 mg STK-MED ONCE .ROUTE ; Start 02/14/20 at 08:26; Stop 02/14/20 at 08:26; Status DC Glycopyrrolate (Robinul) 1 mg STK-MED ONCE .ROUTE ; Start 02/14/20 at 08:26; Stop 02/14/20 at 08:26; Status DC Cefazolin Sodium (Ancef) 1 gm STK-MED ONCE IVP ; Start 02/14/20 at 08:27; Stop 02/14/20 at 08:27; Status DC Ondansetron HCl (Zofran) 4 mg PRN Q6HRS PRN IV NAUSEA/VOMITING; Start 02/14/20 at 09:00; Stop 02/15/20 at 08:59 Fentanyl Citrate (Fentanyl 2ml Vial) 25 mcg PRN Q5MIN PRN IV MILD PAIN 1-3; Start 02/14/20 at 09:00; Stop 02/15/20 at 08:59 Fentanyl Citrate (Fentanyl 2ml Vial) 50 mcg PRN Q5MIN PRN IV MODERATE TO SEVERE PAIN Last administered on 02/14/20at 09:18; Start 02/14/20 at 09:00; Stop 02/15/20 at 08:59 Morphine Sulfate (Morphine Sulfate) 1 mg PRN Q10MIN PRN IV SEVERE PAIN 7-10; Start 02/14/20 at 09:00; Stop 02/15/20 at 08:59 Ringer's Solution 1,000 ml @ 30 mls/hr Q24H IV ; Start 02/14/20 at 08:55; Stop 02/14/20 at 20:54 Lidocaine HCl (Xylocaine-Mpf 1% 2ml Vial) 2 ml PRN 1X PRN ID PRIOR TO IV START; Start 02/14/20 at 09:00; Stop 02/15/20 at 08:59 Hydromorphone HCl (Dilaudid) 0.5 mg PRN Q10MIN PRN IV SEV PAIN, Second choice; Start 02/14/20 at 09:00; Stop 02/15/20 at 08:59 Prochlorperazine Edisylate (Compazine) 5 mg PACU PRN PRN IV NAUSEA, MRX1; Start 02/14/20 at 09:00; Stop 02/15/20 at 08:59 Fentanyl Citrate (Fentanyl 2ml Vial) 100 mcg STK-MED ONCE .ROUTE ; Start 02/14/20 at 09:14; Stop 02/14/20 at 09:14; Status DC Active Scripts Active Percocet 5-325 mg Tablet (Oxycodone HCl/Acetaminophen) 1 Each Tablet 1 Each PO PRN Q4HRS PRN Reported [POTASSIUM 99 MG otc] Furosemide 40 Mg Tablet 1 Tab PO DAILY Children's Aspirin (Aspirin) 81 Mg Tab.chew 1 Tab PO DAILY 30 Days Mirapex (Pramipexole Di-Hcl) 0.25 Mg Tablet 1 Mg PO DAILY Cymbalta (Duloxetine Hcl) 30 Mg Capsule.dr 1 Cap PO DAILY Losartan Potassium 100 Mg Tablet 100 Mg PO DAILY Ferrous Sulfate 325 Mg Tablet 325 Mg PO TIDAFTMEAL Warfarin Sodium 3 Mg Tablet 3 Mg PO HS Atorvastatin Calcium 40 Mg Tablet 40 Mg PO HS Diltiazem 24HR Er (Diltiazem Hcl) 240 Mg Cap.er.24h 240 Mg PO DAILY07 Metoprolol Succinate ( Xl ) (Metoprolol Succinate) 25 Mg Tab.er.24h 12.5 Mg PO DAILY08 Tamsulosin Hcl 0.4 Mg Cap.er.24h 0.8 Mg PO DAILYBFRSUP Vitals/I & O Vital Sign - Last 24 Hours 02/13/20 02/13/20 02/13/20 02/13/20 19:00 20:00 21:39 22:39 Temp 97.8 97.8 Pulse 81 Resp 18 B/P (MAP) 111/53 (72) Pulse Ox 94 O2 Delivery Room Air Room Air Room Air Room Air 02/13/20 02/14/20 02/14/20 02/14/20 23:00 03:00 03:59 05:02 Temp 98.2 97.4 98.2 97.4 Pulse 83 81 Resp 17 18 B/P (MAP) 141/67 (91) 134/60 (84) Pulse Ox 93 95 O2 Delivery Room Air Room Air Room Air Room Air 02/14/20 02/14/20 02/14/20 02/14/20 07:05 08:51 08:51 09:06 Temp 98.8 98.9 98.9 98.8 98.9 98.9 Pulse 92 86 86 Resp 15 15 B/P (MAP) 146/62 134/64 150/62 Pulse Ox 95 98 96 O2 Delivery Room Air Room Air Room Air Room Air O2 Flow Rate 10 02/14/20 02/14/20 02/14/20 02/14/20 09:18 09:21 09:56 10:27 Temp 98.9 98.9 97.9 98.9 98.9 97.9 Pulse 86 86 89 Resp 15 18 B/P (MAP) 150/55 141/52 154/58 (90) Pulse Ox 96 96 96 94 O2 Delivery Room Air Room Air Room Air Nasal Cannula O2 Flow Rate 10.0 10.0 10.0 2.0 02/14/20 02/14/20 02/14/20 02/14/20 10:31 10:46 11:01 11:16 Pulse 92 99 100 101 B/P (MAP) 150/55 (86) 143/62 (89) 116/50 (72) 100/55 (70) 02/14/20 02/14/20 02/14/20 02/14/20 11:31 11:33 12:01 12:31 Pulse 94 109 99 B/P (MAP) 131/51 (77) 134/51 (78) 143/64 (90) O2 Delivery Nasal Cannula O2 Flow Rate 2.0 02/14/20 02/14/20 02/14/20 02/14/20 12:52 12:53 12:53 12:57 Pulse 99 99 99 B/P (MAP) 143/64 143/64 143/64 O2 Delivery Room Air 02/14/20 02/14/20 02/14/20 13:31 13:57 15:15 Temp 98.1 98.1 Pulse 94 95 Resp 18 B/P (MAP) 151/59 (89) 140/66 (90) Pulse Ox 95 O2 Delivery Room Air Room Air Intake and Output 02/13/20 02/13/20 02/14/20 15:00 23:00 07:00 Intake Total 300 ml 0 ml Output Total 550 ml Balance 300 ml -550 ml Justicifation of Admission Dx: Justifications for Admission: Justification of Admission Dx: Yes Cellulitis: Cellulitis KARLA HANNAH MD Feb 14, 2020 16:48
[2020-02-14] MEDS: TAMSULOSIN 0.4 MG CAP.ER.24H. PO SCH (17:54)
[2020-02-14] MEDS: WARFARIN 3 MG TABLET. PO SCH (17:54)
[2020-02-14] MEDS: ATORVASTATIN CALCIUM 40 MG TABLET. PO SCH (20:49)
[2020-02-15 03:00] VITALS: BP 132/58
[2020-02-15 04:45] LABS: BASO % 0 % (0-3); EOS % 0 % (0-3); HEMATOCRIT 32.2 % (39.0-53.0); HEMOGLOBIN 10.9 g/dL (13.0-17.5); LYMPH # 0.9 x10^3/uL (1.0-4.8); LYMPH % 6 % (24-48); MEAN CORPUSCULAR HEMOGLOBIN 33 pg (25-35); MEAN CORPUSCULAR HGB CONC 34 g/dL (31-37); MEAN CORPUSCULAR VOLUME 99 fL (79-100); MONO # 0.4 x10^3/uL (0.0-1.1); MONO % 3 % (0-9); NEUT # 12.4 x10^3/uL (1.8-7.7); NEUT % 91 % (31-73); PLATELET COUNT 341 x10^3/uL (140-400); RED BLOOD COUNT 3.26 x10^6/uL (4.30-5.70); RED CELL DISTRIBUTION WIDTH 13.3 % (11.5-14.5); WHITE BLOOD COUNT 13.7 x10^3/uL (4.0-11.0)
[2020-02-15 04:55] LABS: CALCIUM 7.8 mg/dL (8.5-10.1); CREATININE 1.2 mg/dL (0.7-1.3); POTASSIUM 4.1 mmol/L (3.5-5.1)
[2020-02-15 07:00] VITALS: BP 130/55
[2020-02-15 10:26] LABS: % LYMPHS 11 % (24-48); % MONOS 3 % (0-10); % SEGS 86 % (35-66); PLT ESTIMATE ADEQUATE (ADEQUATE)
[2020-02-15] MEDS: PRAMIPEXOLE 0.25 MG TABLET. PO SCH (10:56)
[2020-02-15] MEDS: LOSARTAN POTASSIUM 50 MG TABLET. PO SCH (10:57)
[2020-02-15] MEDS: METOPROLOL SUCC 24HR ER 25 MG TAB.ER.24H. PO SCH (10:57)
[2020-02-15] MEDS: DULoxetine HCL 30 MG CAPSULE.DR PO SCH (10:58)
[2020-02-15] MEDS: FERROUS SULFATE 325 MG TABLET. PO SCH ×3 (10:58→17:44)
[2020-02-15] MEDS: FUROSEMIDE 40 MG TABLET. PO SCH (10:59)
[2020-02-15] MEDS: ASPIRIN CHEWABLE 81 MG TABLET. PO SCH (10:59)
[2020-02-15 11:00] VITALS: BP 128/48
[2020-02-15 11:36] LABS: PROTHROMBIN TIME PATIENT 15.1 SEC (11.7-14.0)
[2020-02-15] MEDS: DOCUSATE SODIUM 100 MG CAPSULE. PO SCH (14:02)
[2020-02-15 15:00] VITALS: BP 144/50
[2020-02-15] MEDS: TAMSULOSIN 0.4 MG CAP.ER.24H. PO SCH (17:44)
[2020-02-15] MEDS: WARFARIN 3 MG TABLET. PO SCH (17:44)
--- NOTE | 2020-02-15 17:45 | PDOC ---
GENERAL General: Patient examined chart reviewed today is hospital day 4 for this patient with left lower extremity swelling and erythema 1 week following a left total knee replacement by Dr. Talley. He is in good spirits sitting up having eaten a good dinner. He tells me he has been up and walking about the unit feeling well. His left knee washings from yesterday so far are negative for infection or any abnormality. We will empirically add doxycycline at this point. We will hold him 1 more day to allow cultures a full 48 hours and to give him an opportunity be up and moving around. He is fully committed to staying on his Lasix daily. In the past he would use as needed. He does have significant bilateral lower extremity swelling secondary to chronic diastolic congestive heart failure. He follows with Dr. Harper. Problems: (1) Cellulitis of lower extremity (2) Chronic diastolic congestive heart failure (3) Atrial fibrillation VITAL SIGNS Vital Signs/I&O: Vital Signs Date Time Temp Pulse Resp B/P (MAP) Pulse Ox O2 Delivery O2 Flow Rate FiO2 02/15/20 15:00 98.3 87 18 144/50 (81) 94 Room Air 98.3 02/14/20 11:33 2.0 I & O 02/14/20 02/14/20 02/15/20 15:00 23:00 07:00 Intake Total 500 ml 340 ml Output Total 1100 ml 850 ml 850 ml Balance -600 ml -850 ml -510 ml In general the patient is pleasant alert and oriented x3 no acute distress HEENT exam is unremarkable Neck is soft and supple no adenopathy or thyromegaly noted Chest is clear to auscultation Heart S1-S2 normal regular rate and rhythm no murmurs or gallops are noted Abdomen is obese soft nontender nondistended no masses organomegaly noted Extremity exam is notable for significant bipedal edema that is chronic for him. His left knee surgical dressings are dry and intact. ALLERGIES Allergies: Allergies Coded Allergies Type Severity Reaction Last Updated Verified No Known Drug Allergies 02/04/20 No MEDS Medications: Current Medications Medications (Trade) Dose Ordered Sig/Jaime Start Time Stop Time Status Last Admin Dose Admin Acetaminophen (Tylenol) 650 mg PRN Q4HRS PRN 02/12/20 17:30 02/13/20 17:29 DC Aspirin (Aspirin Chewable) 81 mg DAILYWBKFT 02/13/20 08:00 02/15/20 10:59 Atorvastatin Calcium (Lipitor) 40 mg HS 02/13/20 21:00 02/14/20 20:49 Cefazolin Sodium (Ancef) 1 gm STK-MED ONCE 02/14/20 08:27 02/14/20 08:27 DC Dexamethasone Sodium Phosphate (Decadron) 4 mg STK-MED ONCE 02/14/20 07:21 02/14/20 07:22 DC Diltiazem HCl (Cardizem 24hr Cd) 240 mg DAILY07 02/13/20 07:00 02/15/20 10:58 Docusate Sodium (Colace) 100 mg DAILY 02/15/20 14:00 02/15/20 14:02 Duloxetine HCl (Cymbalta) 30 mg DAILY 02/13/20 09:00 02/15/20 10:58 Fentanyl Citrate (Fentanyl 2ml Vial) 100 mcg STK-MED ONCE 02/14/20 09:14 02/14/20 09:14 DC Ferrous Sulfate (Feosol) 325 mg TIDAFTMEAL 02/13/20 09:00 02/15/20 14:02 Furosemide (Lasix) 40 mg DAILY 02/13/20 09:00 02/15/20 10:59 Glycopyrrolate (Robinul) 1 mg STK-MED ONCE 02/14/20 08:26 02/14/20 08:26 DC Hydromorphone HCl (Dilaudid) 0.5 mg PRN Q10MIN PRN 02/14/20 09:00 02/15/20 08:59 DC Lidocaine HCl (Lidocaine Pf 2% Vial) 5 ml STK-MED ONCE 02/14/20 06:38 02/14/20 06:38 DC Lidocaine HCl (Xylocaine-Mpf 1% 2ml Vial) 2 ml PRN 1X PRN 02/14/20 09:00 02/15/20 08:59 DC Losartan Potassium (Cozaar) 100 mg DAILY 02/13/20 09:00 02/15/20 10:57 Metoprolol Succinate (Toprol Xl) 12.5 mg DAILY08 02/13/20 08:00 02/15/20 10:57 Morphine Sulfate (Morphine Sulfate) 1 mg PRN Q10MIN PRN 8/21/20 09:00 02/15/20 08:59 DC Morphine Sulfate 5 mg/Ketorolac Tromethamine 30 mg/Ropivacaine 60 ml/Epinephrine HCl 0.5 mg/Sodium Chloride 100 ml @ 100 mls/hr 1X ONCE 02/14/20 08:00 02/14/20 08:59 DC Neostigmine [place] (Neostigmine Methylsulfate) 5 mg STK-MED ONCE 02/14/20 08:26 02/14/20 08:26 DC Ondansetron HCl (Zofran) 4 mg PRN Q6HRS PRN 02/14/20 09:00 02/15/20 08:59 DC Oxycodone/ Acetaminophen (Percocet 5/325) 1 tab PRN Q4HRS PRN 02/13/20 01:00 02/14/20 20:49 Pramipexole Dihydrochloride (miraPEX) 1 mg DAILY 02/13/20 09:00 02/15/20 10:56 Prochlorperazine Edisylate (Compazine) 5 mg PACU PRN PRN 02/14/20 09:00 02/15/20 08:59 DC Propofol (Diprivan) 200 mg STK-MED ONCE 02/14/20 06:38 02/14/20 06:38 DC Ringer's Solution 1,000 ml @ 30 mls/hr Q24H 02/14/20 08:55 02/14/20 20:54 DC Rocuronium [place] (Zemuron) 50 mg STK-MED ONCE 02/14/20 07:22 02/14/20 07:22 DC Sevoflurane (Ultane) 30 ml STK-MED ONCE 02/14/20 08:21 02/14/20 08:21 DC Succinylcholine Chloride (Anectine) 200 mg STK-MED ONCE 02/14/20 07:21 02/14/20 07:22 DC Tamsulosin HCl (Flomax) 0.8 mg DAILYBFRSUP 02/13/20 17:00 02/14/20 17:54 Vancomycin HCl (VANCO for OR ONLY) 10 gm STK-MED ONCE 02/14/20 08:25 02/14/20 08:25 DC Warfarin Sodium (Coumadin Per Physician) 1 each PRN DAILY PRN 02/13/20 10:00 02/15/20 15:08 Warfarin Sodium (Coumadin) 3 mg DAILY16 02/13/20 16:00 02/14/20 17:54 Current Medications Medications (Trade) Dose Ordered Sig/Jaime Route PRN Reason Start Time Stop Time Status Last Admin Dose Admin Docusate Sodium (Colace) 100 mg DAILY PO 02/15/20 14:00 02/15/20 14:02 LAB Lab: Laboratory Tests Test 02/15/20 03:40 White Blood Count 13.7 x10^3/uL (4.0-11.0) H Red Blood Count 3.26 x10^6/uL (4.30-5.70) L Hemoglobin 10.9 g/dL (13.0-17.5) L Hematocrit 32.2 % (39.0-53.0) L Mean Corpuscular Volume 99 fL (79-100) Mean Corpuscular Hemoglobin 33 pg (25-35) Mean Corpuscular Hemoglobin Concent 34 g/dL (31-37) Red Cell Distribution Width 13.3 % (11.5-14.5) Platelet Count 341 x10^3/uL (140-400) Neutrophils (%) (Auto) 91 % (31-73) H Lymphocytes (%) (Auto) 6 % (24-48) L Monocytes (%) (Auto) 3 % (0-9) Eosinophils (%) (Auto) 0 % (0-3) Basophils (%) (Auto) 0 % (0-3) Neutrophils # (Auto) 12.4 x10^3/uL (1.8-7.7) H Lymphocytes # (Auto) 0.9 x10^3/uL (1.0-4.8) L Monocytes # (Auto) 0.4 x10^3/uL (0.0-1.1) Eosinophils # (Auto) 0.0 x10^3/uL (0.0-0.7) Basophils # (Auto) 0.0 x10^3/uL (0.0-0.2) Segmented Neutrophils % 86 % (35-66) H Lymphocytes % 11 % (24-48) L Monocytes % 3 % (0-10) Platelet Estimate Adequate (ADEQUATE) Prothrombin Time 15.1 SEC (11.7-14.0) H Prothrombin Time INR 1.2 (0.8-1.1) H Sodium Level 138 mmol/L (136-145) Potassium Level 4.1 mmol/L (3.5-5.1) Chloride Level 103 mmol/L (98-107) Carbon Dioxide Level 31 mmol/L (21-32) Anion Gap 4 (6-14) L Blood Urea Nitrogen 17 mg/dL (8-26) Creatinine 1.2 mg/dL (0.7-1.3) Estimated GFR (Cockcroft-Gault) 58.0 Glucose Level 137 mg/dL (70-99) H Calcium Level 7.8 mg/dL (8.5-10.1) L Laboratory Tests 02/15/20 03:40 Laboratory Tests 02/15/20 03:40 ASSESSMENT & PLAN A&P Plan as noted above This note was created using ACTV8 and may have omissions and/or errors due to the nature of real-time voice windows vmware administrator. Justicifation of Admission Dx: Justifications for Admission: Justification of Admission Dx: Yes Cellulitis: Cellulitis Problem Qualifiers (1) Cellulitis of lower extremity: Laterality: left Qualified Codes: L03.116 - Cellulitis of left lower limb KIM PARK MD Feb 15, 2020 17:45
[2020-02-15 19:00] VITALS: BP 135/41
--- NOTE | 2020-02-15 19:34 | PDOC ---
PROGRESS NOTES Date of Service DATE: 02/15/20 TIME: 19:26 Subjective Subjective Problems overnight: [place] indicates reasonable pain control and further has told multiple caregivers that he is going to be compliant with his Lasix Objective Vital Signs Vital Signs Date Time Temp Pulse Resp B/P (MAP) Pulse Ox O2 Delivery O2 Flow Rate FiO2 02/15/20 15:00 98.3 87 18 144/50 (81) 94 Room Air 98.3 02/14/20 11:33 2.0 Physical Exam Both legs remain very swollen, redness in the left leg has largely resolved, distal neurovascular status intact Labs Laboratory Tests Test 02/15/20 03:40 White Blood Count 13.7 x10^3/uL (4.0-11.0) Red Blood Count 3.26 x10^6/uL (4.30-5.70) Hemoglobin 10.9 g/dL (13.0-17.5) Hematocrit 32.2 % (39.0-53.0) Mean Corpuscular Volume 99 fL (79-100) Mean Corpuscular Hemoglobin 33 pg (25-35) Mean Corpuscular Hemoglobin Concent 34 g/dL (31-37) Red Cell Distribution Width 13.3 % (11.5-14.5) Platelet Count 341 x10^3/uL (140-400) Neutrophils (%) (Auto) 91 % (31-73) Lymphocytes (%) (Auto) 6 % (24-48) Monocytes (%) (Auto) 3 % (0-9) Eosinophils (%) (Auto) 0 % (0-3) Basophils (%) (Auto) 0 % (0-3) Neutrophils # (Auto) 12.4 x10^3/uL (1.8-7.7) Lymphocytes # (Auto) 0.9 x10^3/uL (1.0-4.8) Monocytes # (Auto) 0.4 x10^3/uL (0.0-1.1) Eosinophils # (Auto) 0.0 x10^3/uL (0.0-0.7) Basophils # (Auto) 0.0 x10^3/uL (0.0-0.2) Segmented Neutrophils % 86 % (35-66) Lymphocytes % 11 % (24-48) Monocytes % 3 % (0-10) Platelet Estimate Adequate (ADEQUATE) Prothrombin Time 15.1 SEC (11.7-14.0) Prothromb Time International Ratio 1.2 (0.8-1.1) Sodium Level 138 mmol/L (136-145) Potassium Level 4.1 mmol/L (3.5-5.1) Chloride Level 103 mmol/L (98-107) Carbon Dioxide Level 31 mmol/L (21-32) Anion Gap 4 (6-14) Blood Urea Nitrogen 17 mg/dL (8-26) Creatinine 1.2 mg/dL (0.7-1.3) Estimated GFR (Cockcroft-Gault) 58.0 Glucose Level 137 mg/dL (70-99) Calcium Level 7.8 mg/dL (8.5-10.1) Laboratory Tests Test 02/15/20 03:40 White Blood Count 13.7 x10^3/uL (4.0-11.0) Red Blood Count 3.26 x10^6/uL (4.30-5.70) Hemoglobin 10.9 g/dL (13.0-17.5) Hematocrit 32.2 % (39.0-53.0) Mean Corpuscular Volume 99 fL (79-100) Mean Corpuscular Hemoglobin 33 pg (25-35) Mean Corpuscular Hemoglobin Concent 34 g/dL (31-37) Red Cell Distribution Width 13.3 % (11.5-14.5) Platelet Count 341 x10^3/uL (140-400) Neutrophils (%) (Auto) 91 % (31-73) Lymphocytes (%) (Auto) 6 % (24-48) Monocytes (%) (Auto) 3 % (0-9) Eosinophils (%) (Auto) 0 % (0-3) Basophils (%) (Auto) 0 % (0-3) Neutrophils # (Auto) 12.4 x10^3/uL (1.8-7.7) Lymphocytes # (Auto) 0.9 x10^3/uL (1.0-4.8) Monocytes # (Auto) 0.4 x10^3/uL (0.0-1.1) Eosinophils # (Auto) 0.0 x10^3/uL (0.0-0.7) Basophils # (Auto) 0.0 x10^3/uL (0.0-0.2) Segmented Neutrophils % 86 % (35-66) Lymphocytes % 11 % (24-48) Monocytes % 3 % (0-10) Platelet Estimate Adequate (ADEQUATE) Prothrombin Time 15.1 SEC (11.7-14.0) Prothromb Time International Ratio 1.2 (0.8-1.1) Sodium Level 138 mmol/L (136-145) Potassium Level 4.1 mmol/L (3.5-5.1) Chloride Level 103 mmol/L (98-107) Carbon Dioxide Level 31 mmol/L (21-32) Anion Gap 4 (6-14) Blood Urea Nitrogen 17 mg/dL (8-26) Creatinine 1.2 mg/dL (0.7-1.3) Estimated GFR (Cockcroft-Gault) 58.0 Glucose Level 137 mg/dL (70-99) Calcium Level 7.8 mg/dL (8.5-10.1) Assessment Assessment POD#1 status post irrigation debridement polyethylene exchange left knee Plan Plan of Care I noticed that an infectious disease consult was not placed as I had previously intended and put one in just now and also called Dr. Norris who is going to direct some likely more broad-spectrum coverage pending culture results I discussed with physical therapy that he can be mobilized gently weightbearing as tolerated but with a cautious total knee protocol given his repeat surgery yesterday Justicifation of Admission Dx: Justifications for Admission: Justification of Admission Dx: Yes Cellulitis: Cellulitis ARTIE KEE MD Feb 15, 2020 19:34
--- NOTE | 2020-02-15 19:40 | NUR ---
This RN consulted Edwina with ID for antibiotics.
[2020-02-15] MEDS: ATORVASTATIN CALCIUM 40 MG TABLET. PO SCH (20:59)
[2020-02-15] MEDS: DAPTOmycin (GENERIC) IVPB 530 MG in IV NORMAL SALINE 50ML 50 ML IV SCH (20:59)
[2020-02-15] MEDS: CEFEPIME HCL IV Push 1 GM VIAL. IVP SCH (20:59)
[2020-02-15] MEDS ORDERED: DOXYCYCLINE HYCLATE 100 MG TABLET PO SCH (21:00)
[2020-02-15 23:00] VITALS: BP 154/48
[2020-02-16] VITALS (7 sets, daily range): BP systolic 108–167; BP diastolic 43–66
[2020-02-16] MEDS: oxyCODONE/APAP 5/325 1 TAB TABLET PO PRN ×3 (03:28→21:34)
[2020-02-16 05:32] LABS: BASO # 0.1 x10^3/uL (0.0-0.2); BASO % 1 % (0-3); EOS # 0.4 x10^3/uL (0.0-0.7); EOS % 3 % (0-3); HEMATOCRIT 32.9 % (39.0-53.0); LYMPH % 15 % (24-48); MEAN CORPUSCULAR HEMOGLOBIN 33 pg (25-35); MEAN CORPUSCULAR HGB CONC 34 g/dL (31-37); MEAN CORPUSCULAR VOLUME 98 fL (79-100); MONO # 0.8 x10^3/uL (0.0-1.1); MONO % 6 % (0-9); NEUT # 10.1 x10^3/uL (1.8-7.7); NEUT % 75 % (31-73); PLATELET COUNT 378 x10^3/uL (140-400); RED BLOOD COUNT 3.36 x10^6/uL (4.30-5.70); RED CELL DISTRIBUTION WIDTH 13.5 % (11.5-14.5); WHITE BLOOD COUNT 13.4 x10^3/uL (4.0-11.0)
[2020-02-16 05:44] LABS: CALCIUM 7.9 mg/dL (8.5-10.1); CREATININE 1.2 mg/dL (0.7-1.3); POTASSIUM 3.9 mmol/L (3.5-5.1)
[2020-02-16] MEDS: CEFEPIME HCL IV Push 1 GM VIAL. IVP SCH ×3 (06:22→21:30)
--- NOTE | 2020-02-16 08:21 | PDOC ---
Infectious Disease Note Vital Sign Vital Signs Vital Signs Date Time Temp Pulse Resp B/P (MAP) Pulse Ox O2 Delivery O2 Flow Rate FiO2 02/16/20 06:37 66 167/52 02/16/20 04:28 16 96 Nasal Cannula 02/16/20 03:00 98.7 98.7 Labs Lab Laboratory Tests Test 02/16/20 04:18 White Blood Count 13.4 x10^3/uL (4.0-11.0) Red Blood Count 3.36 x10^6/uL (4.30-5.70) Hemoglobin 11.0 g/dL (13.0-17.5) Hematocrit 32.9 % (39.0-53.0) Mean Corpuscular Volume 98 fL (79-100) Mean Corpuscular Hemoglobin 33 pg (25-35) Mean Corpuscular Hemoglobin Concent 34 g/dL (31-37) Red Cell Distribution Width 13.5 % (11.5-14.5) Platelet Count 378 x10^3/uL (140-400) Neutrophils (%) (Auto) 75 % (31-73) Lymphocytes (%) (Auto) 15 % (24-48) Monocytes (%) (Auto) 6 % (0-9) Eosinophils (%) (Auto) 3 % (0-3) Basophils (%) (Auto) 1 % (0-3) Neutrophils # (Auto) 10.1 x10^3/uL (1.8-7.7) Lymphocytes # (Auto) 2.0 x10^3/uL (1.0-4.8) Monocytes # (Auto) 0.8 x10^3/uL (0.0-1.1) Eosinophils # (Auto) 0.4 x10^3/uL (0.0-0.7) Basophils # (Auto) 0.1 x10^3/uL (0.0-0.2) Sodium Level 142 mmol/L (136-145) Potassium Level 3.9 mmol/L (3.5-5.1) Chloride Level 104 mmol/L (98-107) Carbon Dioxide Level 32 mmol/L (21-32) Anion Gap 6 (6-14) Blood Urea Nitrogen 19 mg/dL (8-26) Creatinine 1.2 mg/dL (0.7-1.3) Estimated GFR (Cockcroft-Gault) 58.0 Glucose Level 95 mg/dL (70-99) Calcium Level 7.9 mg/dL (8.5-10.1) Micro Microbiology 02/14/20 Gram Stain - Final, Resulted 02/14/20 Aerobic and Anaerobic Culture - Preliminary, Resulted 02/12/20 Gram Stain - Final, Resulted 02/12/20 Aerobic and Anaerobic Culture - Preliminary, Resulted 02/12/20 Blood Culture - Preliminary, Resulted NO GROWTH AFTER 3 DAYS Objective Assessment ? L TKA infection Leukocytosis - s/p steroid 02/13 ANA BLE swelling Plan Plan of Care Started Dapto and Cefepime last pm - d/w pharmacy Check CRP F/u labs and cults D/w Dr. Talley 02/14 evening and then pharmacy Thank you # [id number] HERNANDEZ MÉNDEZ MD Feb 16, 2020 08:20
[2020-02-16] MEDS: FUROSEMIDE 40 MG TABLET. PO SCH (08:29)
[2020-02-16] MEDS: FERROUS SULFATE 325 MG TABLET. PO SCH ×3 (08:30→16:48)
[2020-02-16] MEDS: PRAMIPEXOLE 0.25 MG TABLET. PO SCH (08:31)
[2020-02-16] MEDS: DULoxetine HCL 30 MG CAPSULE.DR PO SCH (08:31)
[2020-02-16] MEDS: LOSARTAN POTASSIUM 50 MG TABLET. PO SCH (08:31)
[2020-02-16] MEDS: DOCUSATE SODIUM 100 MG CAPSULE. PO SCH (08:31)
[2020-02-16] MEDS: METOPROLOL SUCC 24HR ER 25 MG TAB.ER.24H. PO SCH (08:33)
[2020-02-16] MEDS: ASPIRIN CHEWABLE 81 MG TABLET. PO SCH (08:42)
--- NOTE | 2020-02-16 09:00 | NUR ---
rests in bed . JULIANA dressing saturated. removed and is leaking reddish/brown liquid at the top of his incision. cleansed with chlor prep then 4x4's and abd, medigrip applied
--- NOTE | 2020-02-16 11:00 | NUR ---
redressed left knee dressing. 10 pack of 4x4's abd x2 then medigrips.
[2020-02-16] MEDS: LACTOBACILLUS RHAMNOSUS GG 1 CAPSULE. PO SCH ×2 (12:48→21:30)
--- NOTE | 2020-02-16 13:31 | CONS ---
DATE OF CONSULTATION: 02/16/2020 INFECTIOUS DISEASE CONSULTATION NOTE PATIENT'S ROOM: 422. REQUESTING PHYSICIAN: Dr. Talley. REASON FOR CONSULTATION: Left total knee infection, arthroplasty infection. HISTORY OF PRESENT ILLNESS: The patient is a pleasant 80-year-old gentleman who on 02/03 underwent a left total knee arthroplasty, placement. He went home, but apparently was noncompliant with taking his Lasix. It was uncomfortable for him to get up to urinate frequently. While he was at home, his left leg became more swollen, developed redness and heat and mild clear fluid began to drain out of the previous drain site. His leg became hot. He did not have fevers, chills, sweats. No decreased appetite. No decreased energy, but presented back to [facility] on the , had a white count of 11.9. Sed rates are not available. He was taken to the operating room on the , underwent irrigation, debridement, left knee with exchange of polyethylene tibial component and had received vancomycin and some cefazolin. I was consulted last evening and discussed the case with Dr. Talley, then called the pharmacy and added daptomycin as well as cefepime and discontinued the doxycycline that had been ordered. Currently, the patient is sitting upright in bed. He is eating breakfast. He is a little constipated, but otherwise better. He has no rash. PAST MEDICAL HISTORY: Positive for AFib, morbid obesity, hypertension, hypercholesterolemia. PAST SURGICAL HISTORY: Positive for left knee replacement. REVIEW OF SYSTEMS: Otherwise negative. ALLERGIES: No known drug allergies. SOCIAL HISTORY: He does have a history of some pipe smoking and a cigar at times. He has a lapdog. No alcohol or drug use. FAMILY HISTORY: Noncontributory. CURRENT MEDICATIONS: Include daptomycin, aspirin, Lipitor, cefepime, diltiazem, Colace, Cymbalta, ferrous sulfate, Lasix, Cozaar, Toprol-XL, Mirapex, Flomax, Coumadin. PHYSICAL EXAMINATION: VITAL SIGNS: He is afebrile, temperature 98.7, pulse 66, respirations 16, blood pressure 167/52, satting 96%. CONSTITUTIONAL: He is sitting upright in bed. He is eating breakfast. He is in no acute distress. HEENT: Pupils have some cataracts. Normal conjunctivae. Oral cavity, pharynx was clear. NECK: Supple. Good range of motion. LUNGS: Clear to auscultation. HEART: S1, S2. ABDOMEN: Obese, soft. Decreased, but positive bowel sounds. EXTREMITIES: Without clubbing, cyanosis. He has left postop dressing in place with a VAC. Lower extremities have some edema and some chronic venous stasis changes. SKIN: Warm to touch without generalized rash. NEUROLOGIC: He is nonfocal. PSYCHIATRIC: Affect is pleasant. LABORATORY DATA: White count 13.4, hemoglobin ____, platelets of 378, neutrophils 75, lymphs 15. Creatinine of 1.2, glucose 137. Creatinine was 1 on arrival, he had normal liver function study tests. He has a normal procalcitonin level. Lower extremity ultrasound from the , no thrombus, edema of the soft tissues. IMPRESSION: 1. Questionable left total knee arthroplasty infection. 2. Leukocytosis, status post steroids on the . 3. Acute kidney injury. 4. Bilateral lower extremity edema. RECOMMENDATIONS: Started cefepime, daptomycin last evening. Discussed with pharmacy. Check a CRP. Sed rates are not available. Follow up labs and cultures. Discussed with Dr. Talley in the evening on the as well as pharmacy. Thank you for allowing me to participate in the patient's care. If you have any questions, please do not hesitate to contact me. HERNANDEZ MÉNDEZ MD DR: JAMAICA/emelyn JOB#: [id number] / [id number] JOSÉ MIGUEL
[2020-02-16] MEDS: WARFARIN 3 MG TABLET. PO SCH (16:48)
[2020-02-16] MEDS: TAMSULOSIN 0.4 MG CAP.ER.24H. PO SCH (16:48)
--- NOTE | 2020-02-16 17:31 | PDOC ---
GENERAL General: Patient examined chart reviewed appreciate subspecialty input. Agree that infectious diseases consultation was most appropriate in this situation. Jose teixeira is now on IV antibiotics. He is happy with his progress and has no complaints this evening. So far the cultures are looking good. He is up and walking about the unit a lot less pain. Problems: (1) Cellulitis of lower extremity VITAL SIGNS Vital Signs/I&O: Vital Signs Date Time Temp Pulse Resp B/P (MAP) Pulse Ox O2 Delivery O2 Flow Rate FiO2 02/16/20 15:00 98.0 72 18 124/64 (84) 96 Room Air 98.0 I & O 02/15/20 02/15/20 02/16/20 15:00 23:00 07:00 Intake Total 240 ml 480 ml Output Total 450 ml Balance -210 ml 480 ml In general patient is pleasant alert and oriented x3 no acute distress HEENT exam is unremarkable Neck is soft and supple no adenopathy or thyromegaly noted Chest is clear to auscultation Heart S1-S2 normal regular rate and rhythm no murmurs or gallops are noted Abdomen soft nontender nondistended no masses organomegaly noted Extremity exam is unchanged from prior. He does have serosanguineous drainage on his knee surgical dressing this evening. ALLERGIES Allergies: Allergies Coded Allergies Type Severity Reaction Last Updated Verified No Known Drug Allergies 02/04/20 No MEDS Medications: Current Medications Medications (Trade) Dose Ordered Sig/Jaime Start Time Stop Time Status Last Admin Dose Admin Acetaminophen (Tylenol) 650 mg PRN Q4HRS PRN 02/12/20 17:30 02/13/20 17:29 DC Aspirin (Aspirin Chewable) 81 mg DAILYWBKFT 02/13/20 08:00 02/16/20 08:42 Atorvastatin Calcium (Lipitor) 40 mg HS 02/13/20 21:00 02/15/20 20:59 Cefazolin Sodium (Ancef) 1 gm STK-MED ONCE 02/14/20 08:27 02/14/20 08:27 DC Cefepime HCl (Maxipime) 1 gm Q8HRS 02/15/20 21:00 02/16/20 12:53 Daptomycin 530 mg/ Sodium Chloride 50 ml @ 100 mls/hr Q24H 02/15/20 20:00 02/15/20 20:59 Dexamethasone Sodium Phosphate (Decadron) 4 mg STK-MED ONCE 02/14/20 07:21 02/14/20 07:22 DC Diltiazem HCl (Cardizem 24hr Cd) 240 mg DAILY07 02/13/20 07:00 02/16/20 08:30 Docusate Sodium (Colace) 100 mg DAILY 02/15/20 14:00 02/16/20 08:31 Doxycycline Hyclate (Vibra-Tab) 100 mg BID 02/15/20 21:00 02/15/20 19:50 DC Duloxetine HCl (Cymbalta) 30 mg DAILY 02/13/20 09:00 02/16/20 08:31 Fentanyl Citrate (Fentanyl 2ml Vial) 100 mcg STK-MED ONCE 02/14/20 09:14 02/14/20 09:14 DC Ferrous Sulfate (Feosol) 325 mg TIDAFTMEAL 02/13/20 09:00 02/16/20 16:48 Furosemide (Lasix) 40 mg DAILY 02/13/20 09:00 02/16/20 08:29 Glycopyrrolate (Robinul) 1 mg STK-MED ONCE 02/14/20 08:26 02/14/20 08:26 DC Hydromorphone HCl (Dilaudid) 0.5 mg PRN Q10MIN PRN 02/14/20 09:00 02/15/20 08:59 DC Lactobacillus Rhamnosus (Culturelle) 1 cap BID 02/16/20 13:00 02/16/20 12:48 Lidocaine HCl (Lidocaine Pf 2% Vial) 5 ml STK-MED ONCE 02/14/20 06:38 02/14/20 06:38 DC Lidocaine HCl (Xylocaine-Mpf 1% 2ml Vial) 2 ml PRN 1X PRN 02/14/20 09:00 02/15/20 08:59 DC Losartan Potassium (Cozaar) 100 mg DAILY 02/13/20 09:00 02/16/20 08:31 Metoprolol Succinate (Toprol Xl) 12.5 mg DAILY08 02/13/20 08:00 02/16/20 08:33 Morphine Sulfate (Morphine Sulfate) 1 mg PRN Q10MIN PRN 02/14/20 09:00 02/15/20 08:59 DC Morphine Sulfate 5 mg/Ketorolac Tromethamine 30 mg/Ropivacaine 60 ml/Epinephrine HCl 0.5 mg/Sodium Chloride 100 ml @ 100 mls/hr 1X ONCE 02/14/20 08:00 02/14/20 08:59 DC Neostigmine [place] (Neostigmine Methylsulfate) 5 mg STK-MED ONCE 02/14/20 08:26 02/14/20 08:26 DC Ondansetron HCl (Zofran) 4 mg PRN Q6HRS PRN 02/14/20 09:00 02/15/20 08:59 DC Oxycodone/ Acetaminophen (Percocet 5/325) 1 tab PRN Q4HRS PRN 02/13/20 01:00 02/16/20 12:51 Pramipexole Dihydrochloride (miraPEX) 1 mg DAILY 02/13/20 09:00 02/16/20 08:31 Prochlorperazine Edisylate (Compazine) 5 mg PACU PRN PRN 02/14/20 09:00 02/15/20 08:59 DC Propofol (Diprivan) 200 mg STK-MED ONCE 02/14/20 06:38 02/14/20 06:38 DC Ringer's Solution 1,000 ml @ 30 mls/hr Q24H 02/14/20 08:55 02/14/20 20:54 DC Rocuronium [place] (Zemuron) 50 mg STK-MED ONCE 02/14/20 07:22 02/14/20 07:22 DC Sevoflurane (Ultane) 30 ml STK-MED ONCE 02/14/20 08:21 02/14/20 08:21 DC Succinylcholine Chloride (Anectine) 200 mg STK-MED ONCE 02/14/20 07:21 02/14/20 07:22 DC Tamsulosin HCl (Flomax) 0.8 mg DAILYBFRSUP 02/13/20 17:00 02/16/20 16:48 Vancomycin HCl (VANCO for OR ONLY) 10 gm STK-MED ONCE 02/14/20 08:25 02/14/20 08:25 DC Warfarin Sodium (Coumadin Per Physician) 1 each PRN DAILY PRN 02/13/20 10:00 02/16/20 11:39 Warfarin Sodium (Coumadin) 3 mg DAILY16 02/13/20 16:00 02/16/20 16:48 Current Medications Medications (Trade) Dose Ordered Sig/Jaime Route PRN Reason Start Time Stop Time Status Last Admin Dose Admin Cefepime HCl (Maxipime) 1 gm Q8HRS IVP 02/15/20 21:00 02/16/20 12:53 Daptomycin 530 mg/ Sodium Chloride 50 ml @ 100 mls/hr Q24H IV 02/15/20 20:00 02/15/20 20:59 Lactobacillus Rhamnosus (Culturelle) 1 cap BID PO 02/16/20 13:00 02/16/20 12:48 LAB Lab: Laboratory Tests Test 02/16/20 04:18 White Blood Count 13.4 x10^3/uL (4.0-11.0) H Red Blood Count 3.36 x10^6/uL (4.30-5.70) L Hemoglobin 11.0 g/dL (13.0-17.5) L Hematocrit 32.9 % (39.0-53.0) L Mean Corpuscular Volume 98 fL (79-100) Mean Corpuscular Hemoglobin 33 pg (25-35) Mean Corpuscular Hemoglobin Concent 34 g/dL (31-37) Red Cell Distribution Width 13.5 % (11.5-14.5) Platelet Count 378 x10^3/uL (140-400) Neutrophils (%) (Auto) 75 % (31-73) H Lymphocytes (%) (Auto) 15 % (24-48) L Monocytes (%) (Auto) 6 % (0-9) Eosinophils (%) (Auto) 3 % (0-3) Basophils (%) (Auto) 1 % (0-3) Neutrophils # (Auto) 10.1 x10^3/uL (1.8-7.7) H Lymphocytes # (Auto) 2.0 x10^3/uL (1.0-4.8) Monocytes # (Auto) 0.8 x10^3/uL (0.0-1.1) Eosinophils # (Auto) 0.4 x10^3/uL (0.0-0.7) Basophils # (Auto) 0.1 x10^3/uL (0.0-0.2) Sodium Level 142 mmol/L (136-145) Potassium Level 3.9 mmol/L (3.5-5.1) Chloride Level 104 mmol/L (98-107) Carbon Dioxide Level 32 mmol/L (21-32) Anion Gap 6 (6-14) Blood Urea Nitrogen 19 mg/dL (8-26) Creatinine 1.2 mg/dL (0.7-1.3) Estimated GFR (Cockcroft-Gault) 58.0 Glucose Level 95 mg/dL (70-99) Calcium Level 7.9 mg/dL (8.5-10.1) L C-Reactive Protein, Quantitative 29.2 mg/L (0-3.3) H Laboratory Tests 02/16/20 04:18 Laboratory Tests 02/16/20 04:18 ASSESSMENT & PLAN A&P Plan as noted above This note was created using Zzish and may have omissions and/or errors due to the nature of real-time voice sausage smoker. Justicifation of Admission Dx: Justifications for Admission: Justification of Admission Dx: Yes Cellulitis: Cellulitis Problem Qualifiers (1) Cellulitis of lower extremity: Laterality: left Qualified Codes: L03.116 - Cellulitis of left lower limb KIM PARK MD Feb 16, 2020 17:31
[2020-02-16] MEDS: DAPTOmycin (GENERIC) IVPB 530 MG in IV NORMAL SALINE 50ML 50 ML IV SCH (21:29)
[2020-02-16] MEDS: ATORVASTATIN CALCIUM 40 MG TABLET. PO SCH (21:33)
[2020-02-17 03:00] VITALS: BP 115/55
[2020-02-17] MEDS: oxyCODONE/APAP 5/325 1 TAB TABLET PO PRN (05:50)
[2020-02-17] MEDS: CEFEPIME HCL IV Push 1 GM VIAL. IVP SCH ×2 (05:50→13:52)
[2020-02-17 07:00] VITALS: BP 126/48
[2020-02-17] MEDS: METOPROLOL SUCC 24HR ER 25 MG TAB.ER.24H. PO SCH (08:00)
[2020-02-17 08:02] LABS: BASO # 0.1 x10^3/uL (0.0-0.2); BASO % 1 % (0-3); EOS # 0.5 x10^3/uL (0.0-0.7); EOS % 5 % (0-3); HEMATOCRIT 34.8 % (39.0-53.0); HEMOGLOBIN 11.7 g/dL (13.0-17.5); LYMPH # 2.1 x10^3/uL (1.0-4.8); LYMPH % 18 % (24-48); MEAN CORPUSCULAR HEMOGLOBIN 33 pg (25-35); MEAN CORPUSCULAR HGB CONC 34 g/dL (31-37); MEAN CORPUSCULAR VOLUME 98 fL (79-100); MONO # 0.7 x10^3/uL (0.0-1.1); MONO % 7 % (0-9); NEUT # 7.9 x10^3/uL (1.8-7.7); NEUT % 70 % (31-73); PLATELET COUNT 417 x10^3/uL (140-400); RED BLOOD COUNT 3.54 x10^6/uL (4.30-5.70); RED CELL DISTRIBUTION WIDTH 13.7 % (11.5-14.5); WHITE BLOOD COUNT 11.4 x10^3/uL (4.0-11.0)
[2020-02-17 08:07] LABS: PROTHROMBIN TIME PATIENT 15.7 SEC (11.7-14.0)
[2020-02-17 08:28] LABS: CALCIUM 8.2 mg/dL (8.5-10.1); CREATININE 1.3 mg/dL (0.7-1.3); GFR 52.9; POTASSIUM 4.1 mmol/L (3.5-5.1)
--- NOTE | 2020-02-17 08:34 | PDOC ---
ORTHO PROGRESS NOTES DATE: 02/17/20 TIME: 08:31 Subjective Patient states that he is not in any significant pain. Post-op Day: 3 Procedure I&D and poly-exchange left knee from a total knee arthroplasty on 02/03. Vitals Vital Signs Date Time Temp Pulse Resp B/P (MAP) Pulse Ox O2 Delivery O2 Flow Rate FiO2 02/17/20 05:50 16 95 Nasal Cannula 02/17/20 03:00 97.9 70 115/55 (75) 97.9 Labs Laboratory Tests Test 02/16/20 04:18 02/17/20 07:30 White Blood Count 13.4 x10^3/uL (4.0-11.0) 11.4 x10^3/uL (4.0-11.0) Red Blood Count 3.36 x10^6/uL (4.30-5.70) 3.54 x10^6/uL (4.30-5.70) Hemoglobin 11.0 g/dL (13.0-17.5) 11.7 g/dL (13.0-17.5) Hematocrit 32.9 % (39.0-53.0) 34.8 % (39.0-53.0) Mean Corpuscular Volume 98 fL (79-100) 98 fL (79-100) Mean Corpuscular Hemoglobin 33 pg (25-35) 33 pg (25-35) Mean Corpuscular Hemoglobin Concent 34 g/dL (31-37) 34 g/dL (31-37) Red Cell Distribution Width 13.5 % (11.5-14.5) 13.7 % (11.5-14.5) Platelet Count 378 x10^3/uL (140-400) 417 x10^3/uL (140-400) Neutrophils (%) (Auto) 75 % (31-73) 70 % (31-73) Lymphocytes (%) (Auto) 15 % (24-48) 18 % (24-48) Monocytes (%) (Auto) 6 % (0-9) 7 % (0-9) Eosinophils (%) (Auto) 3 % (0-3) 5 % (0-3) Basophils (%) (Auto) 1 % (0-3) 1 % (0-3) Neutrophils # (Auto) 10.1 x10^3/uL (1.8-7.7) 7.9 x10^3/uL (1.8-7.7) Lymphocytes # (Auto) 2.0 x10^3/uL (1.0-4.8) 2.1 x10^3/uL (1.0-4.8) Monocytes # (Auto) 0.8 x10^3/uL (0.0-1.1) 0.7 x10^3/uL (0.0-1.1) Eosinophils # (Auto) 0.4 x10^3/uL (0.0-0.7) 0.5 x10^3/uL (0.0-0.7) Basophils # (Auto) 0.1 x10^3/uL (0.0-0.2) 0.1 x10^3/uL (0.0-0.2) Sodium Level 142 mmol/L (136-145) 140 mmol/L (136-145) Potassium Level 3.9 mmol/L (3.5-5.1) 4.1 mmol/L (3.5-5.1) Chloride Level 104 mmol/L (98-107) 103 mmol/L (98-107) Carbon Dioxide Level 32 mmol/L (21-32) 32 mmol/L (21-32) Anion Gap 6 (6-14) 5 (6-14) Blood Urea Nitrogen 19 mg/dL (8-26) 18 mg/dL (8-26) Creatinine 1.2 mg/dL (0.7-1.3) 1.3 mg/dL (0.7-1.3) Estimated GFR (Cockcroft-Gault) 58.0 52.9 Glucose Level 95 mg/dL (70-99) 124 mg/dL (70-99) Calcium Level 7.9 mg/dL (8.5-10.1) 8.2 mg/dL (8.5-10.1) C-Reactive Protein, Quantitative 29.2 mg/L (0-3.3) Prothrombin Time 15.7 SEC (11.7-14.0) Prothromb Time International Ratio 1.3 (0.8-1.1) Laboratory Tests Test 02/17/20 07:30 White Blood Count 11.4 x10^3/uL (4.0-11.0) Red Blood Count 3.54 x10^6/uL (4.30-5.70) Hemoglobin 11.7 g/dL (13.0-17.5) Hematocrit 34.8 % (39.0-53.0) Mean Corpuscular Volume 98 fL (79-100) Mean Corpuscular Hemoglobin 33 pg (25-35) Mean Corpuscular Hemoglobin Concent 34 g/dL (31-37) Red Cell Distribution Width 13.7 % (11.5-14.5) Platelet Count 417 x10^3/uL (140-400) Neutrophils (%) (Auto) 70 % (31-73) Lymphocytes (%) (Auto) 18 % (24-48) Monocytes (%) (Auto) 7 % (0-9) Eosinophils (%) (Auto) 5 % (0-3) Basophils (%) (Auto) 1 % (0-3) Neutrophils # (Auto) 7.9 x10^3/uL (1.8-7.7) Lymphocytes # (Auto) 2.1 x10^3/uL (1.0-4.8) Monocytes # (Auto) 0.7 x10^3/uL (0.0-1.1) Eosinophils # (Auto) 0.5 x10^3/uL (0.0-0.7) Basophils # (Auto) 0.1 x10^3/uL (0.0-0.2) Prothrombin Time 15.7 SEC (11.7-14.0) Prothromb Time International Ratio 1.3 (0.8-1.1) Sodium Level 140 mmol/L (136-145) Potassium Level 4.1 mmol/L (3.5-5.1) Chloride Level 103 mmol/L (98-107) Carbon Dioxide Level 32 mmol/L (21-32) Anion Gap 5 (6-14) Blood Urea Nitrogen 18 mg/dL (8-26) Creatinine 1.3 mg/dL (0.7-1.3) Estimated GFR (Cockcroft-Gault) 52.9 Glucose Level 124 mg/dL (70-99) Calcium Level 8.2 mg/dL (8.5-10.1) Notes Awake and alert Assessment and Plan Postop day #3 status post I&D of left knee with poly-exchange after total knee arthroplasty on 02/03. Motor and sensation intact distally. No redness noted around the wound but there is still extensive serosanguineous drainage. Sharri are intact. Dressing was reinforced and pillows placed under the legs bilaterally. Continue PT MARILIA CHRISTIE APRN Feb 17, 2020 08:34
[2020-02-17] MEDS: LOSARTAN POTASSIUM 50 MG TABLET. PO SCH (09:00)
--- NOTE | 2020-02-17 09:36 | PDOC ---
Infectious Disease Note Subjective Subjective pt is feeling better, though knee is continues to leak ROS ROS no n/v/d/sob/fever Vital Sign Vital Signs Vital Signs Date Time Temp Pulse Resp B/P (MAP) Pulse Ox O2 Delivery O2 Flow Rate FiO2 02/17/20 07:00 98.0 74 20 126/48 (74) 93 Room Air 98.0 Physical Exam PHYSICAL EXAM CONSTITUTIONAL: He is sitting upright in bed. He is eating breakfast. He is in no acute distress. HEENT: Pupils have some cataracts. Normal conjunctivae. Oral cavity, pharynx was clear. NECK: Supple. Good range of motion. LUNGS: Clear to auscultation. HEART: S1, S2. ABDOMEN: Obese, soft. Decreased, but positive bowel sounds. EXTREMITIES: Without clubbing, cyanosis. He has left postop dressing in place with a VAC. Lower extremities have some edema and some chronic venous stasis changes. SKIN: Warm to touch without generalized rash. NEUROLOGIC: He is nonfocal. PSYCHIATRIC: Affect is pleasant. Labs Lab Laboratory Tests Test 02/17/20 07:30 White Blood Count 11.4 x10^3/uL (4.0-11.0) Red Blood Count 3.54 x10^6/uL (4.30-5.70) Hemoglobin 11.7 g/dL (13.0-17.5) Hematocrit 34.8 % (39.0-53.0) Mean Corpuscular Volume 98 fL (79-100) Mean Corpuscular Hemoglobin 33 pg (25-35) Mean Corpuscular Hemoglobin Concent 34 g/dL (31-37) Red Cell Distribution Width 13.7 % (11.5-14.5) Platelet Count 417 x10^3/uL (140-400) Neutrophils (%) (Auto) 70 % (31-73) Lymphocytes (%) (Auto) 18 % (24-48) Monocytes (%) (Auto) 7 % (0-9) Eosinophils (%) (Auto) 5 % (0-3) Basophils (%) (Auto) 1 % (0-3) Neutrophils # (Auto) 7.9 x10^3/uL (1.8-7.7) Lymphocytes # (Auto) 2.1 x10^3/uL (1.0-4.8) Monocytes # (Auto) 0.7 x10^3/uL (0.0-1.1) Eosinophils # (Auto) 0.5 x10^3/uL (0.0-0.7) Basophils # (Auto) 0.1 x10^3/uL (0.0-0.2) Prothrombin Time 15.7 SEC (11.7-14.0) Prothromb Time International Ratio 1.3 (0.8-1.1) Sodium Level 140 mmol/L (136-145) Potassium Level 4.1 mmol/L (3.5-5.1) Chloride Level 103 mmol/L (98-107) Carbon Dioxide Level 32 mmol/L (21-32) Anion Gap 5 (6-14) Blood Urea Nitrogen 18 mg/dL (8-26) Creatinine 1.3 mg/dL (0.7-1.3) Estimated GFR (Cockcroft-Gault) 52.9 Glucose Level 124 mg/dL (70-99) Calcium Level 8.2 mg/dL (8.5-10.1) Creatine Kinase 181 U/L (39-308) Micro Microbiology 02/14/20 Gram Stain - Final, Resulted 02/14/20 Aerobic and Anaerobic Culture - Preliminary, Resulted 02/12/20 Gram Stain - Final, Resulted 02/12/20 Aerobic and Anaerobic Culture - Preliminary, Resulted 02/12/20 Blood Culture - Preliminary, Resulted NO GROWTH AFTER 4 DAYS Objective Assessment 1. Questionable left total knee arthroplasty infection. 2. Leukocytosis, status post steroids on the . 3. Acute kidney injury. 4. Bilateral lower extremity edema. Plan Plan of Care Started Dapto and Cefepime last pm - d/w pharmacy Check CRP F/u labs and cults leg elevation d/w NOVA GALEAS MD Feb 17, 2020 09:36
--- NOTE | 2020-02-17 09:45 | NUR ---
SW following. Discussed with RN and Dr. Stout, pt very likely will need custodial IV abx. Plan is home with [facility]. SW will continue to follow.
[2020-02-17] MEDS: DULoxetine HCL 30 MG CAPSULE.DR PO SCH (10:05)
[2020-02-17] MEDS: PRAMIPEXOLE 0.25 MG TABLET. PO SCH (10:05)
[2020-02-17] MEDS: FERROUS SULFATE 325 MG TABLET. PO SCH ×3 (10:06→17:12)
[2020-02-17] MEDS: LACTOBACILLUS RHAMNOSUS GG 1 CAPSULE. PO SCH ×2 (10:06→20:29)
[2020-02-17] MEDS: DOCUSATE SODIUM 100 MG CAPSULE. PO SCH (10:06)
[2020-02-17] MEDS: ASPIRIN CHEWABLE 81 MG TABLET. PO SCH (10:06)
[2020-02-17 11:00] VITALS: BP 118/46
--- NOTE | 2020-02-17 11:38 | PDOC ---
[employer] PROGRESS NOTE Date of Service DOS: DATE: 02/17/20 TIME: 11:37 Chief Complaint Chief Complaint Leg erythema, leg swelling History of Present Illness History of Present Illness 02/17/20 Patient was seen and examined Discussed with RN Chart reviewed I called infectious disease he would like to continue IV antibiotic and eventually home IV antibiotics Vitals/I&O Vitals/I&O: Vital Signs Date Time Temp Pulse Resp B/P (MAP) Pulse Ox O2 Delivery O2 Flow Rate FiO2 02/17/20 09:00 74 126/48 02/17/20 08:00 Room Air 02/17/20 07:00 98.0 20 93 98.0 I & O 02/16/20 02/16/20 02/17/20 15:00 23:00 07:00 Intake Total 540 ml 480 ml Balance 540 ml 480 ml Physical Exam Physical Exam: CONSTITUTIONAL: He is sitting upright in bed. He is eating breakfast. He is in no acute distress. HEENT: Pupils have some cataracts. Normal conjunctivae. Oral cavity, pharynx was clear. NECK: Supple. Good range of motion. LUNGS: Clear to auscultation. HEART: S1, S2. ABDOMEN: Obese, soft. Decreased, but positive bowel sounds. EXTREMITIES: Without clubbing, cyanosis. He has left postop dressing in place with a VAC. Lower extremities have some edema and some chronic venous stasis changes. SKIN: Warm to touch without generalized rash. NEUROLOGIC: He is nonfocal. PSYCHIATRIC: Affect is pleasant. General: Alert, No acute distress Heart: Regular rate, Normal S1, Normal S2 Lungs: Clear Abdomen: Soft, No tenderness Extremities: No cyanosis, Other (Left lower extremity wrapped in bandage) Skin: No rashes, No significant lesion Labs Labs: Laboratory Tests Test 02/17/20 07:30 White Blood Count 11.4 x10^3/uL (4.0-11.0) Red Blood Count 3.54 x10^6/uL (4.30-5.70) Hemoglobin 11.7 g/dL (13.0-17.5) Hematocrit 34.8 % (39.0-53.0) Mean Corpuscular Volume 98 fL (79-100) Mean Corpuscular Hemoglobin 33 pg (25-35) Mean Corpuscular Hemoglobin Concent 34 g/dL (31-37) Red Cell Distribution Width 13.7 % (11.5-14.5) Platelet Count 417 x10^3/uL (140-400) Neutrophils (%) (Auto) 70 % (31-73) Lymphocytes (%) (Auto) 18 % (24-48) Monocytes (%) (Auto) 7 % (0-9) Eosinophils (%) (Auto) 5 % (0-3) Basophils (%) (Auto) 1 % (0-3) Neutrophils # (Auto) 7.9 x10^3/uL (1.8-7.7) Lymphocytes # (Auto) 2.1 x10^3/uL (1.0-4.8) Monocytes # (Auto) 0.7 x10^3/uL (0.0-1.1) Eosinophils # (Auto) 0.5 x10^3/uL (0.0-0.7) Basophils # (Auto) 0.1 x10^3/uL (0.0-0.2) Prothrombin Time 15.7 SEC (11.7-14.0) Prothromb Time International Ratio 1.3 (0.8-1.1) Sodium Level 140 mmol/L (136-145) Potassium Level 4.1 mmol/L (3.5-5.1) Chloride Level 103 mmol/L (98-107) Carbon Dioxide Level 32 mmol/L (21-32) Anion Gap 5 (6-14) Blood Urea Nitrogen 18 mg/dL (8-26) Creatinine 1.3 mg/dL (0.7-1.3) Estimated GFR (Cockcroft-Gault) 52.9 Glucose Level 124 mg/dL (70-99) Calcium Level 8.2 mg/dL (8.5-10.1) Creatine Kinase 181 U/L (39-308) Review of Systems Review of Systems: Patient denies weakness. Patient denies nausea or pain Assessment and Plan Assessmemt and Plan Assessment: Medical Problems: (1) Cellulitis of lower extremity Status: Acute (2) Infection of left knee Status: Acute (3) Lower extremity edema Status: Acute Plan: Continue IV ABx Discuss with ID about home IV ABx DVT prophylaxis Full code Home meds Discharge when okay with infectious disease Comment Review of Relevant I have reviewed the following items deyvi (where applicable) has been applied. Medications: Current Medications Medications (Trade) Dose Ordered Sig/Jaime Route PRN Reason Start Time Stop Time Status Last Admin Dose Admin Lactobacillus Rhamnosus (Culturelle) 1 cap BID PO 02/16/20 13:00 02/17/20 10:06 DELILAH ZAVALETA III DO Feb 17, 2020 11:38
[2020-02-17] MEDS: FUROSEMIDE 40 MG TABLET. PO SCH (13:48)
[2020-02-17 15:00] VITALS: BP 132/48
[2020-02-17] MEDS: TAMSULOSIN 0.4 MG CAP.ER.24H. PO SCH (18:32)
[2020-02-17] MEDS: WARFARIN 3 MG TABLET. PO SCH (18:33)
[2020-02-17 19:00] VITALS: BP 154/70
[2020-02-17] MEDS: ATORVASTATIN CALCIUM 40 MG TABLET. PO SCH (20:29)
[2020-02-17] MEDS: DAPTOmycin (GENERIC) IVPB 530 MG in IV NORMAL SALINE 50ML 50 ML IV SCH (20:31)
[2020-02-17 22:51] VITALS: BP 141/67
[2020-02-18] MEDS: oxyCODONE/APAP 5/325 1 TAB TABLET PO PRN (00:47)
[2020-02-18] MEDS: CEFEPIME HCL IV Push 1 GM VIAL. IVP SCH ×2 (00:47→05:50)
[2020-02-18 03:00] VITALS: BP 118/51
[2020-02-18 04:44] LABS: BASO # 0.1 x10^3/uL (0.0-0.2); BASO % 1 % (0-3); EOS # 0.4 x10^3/uL (0.0-0.7); EOS % 4 % (0-3); HEMATOCRIT 34.2 % (39.0-53.0); HEMOGLOBIN 11.8 g/dL (13.0-17.5); LYMPH # 1.9 x10^3/uL (1.0-4.8); LYMPH % 18 % (24-48); MEAN CORPUSCULAR HEMOGLOBIN 33 pg (25-35); MEAN CORPUSCULAR HGB CONC 34 g/dL (31-37); MEAN CORPUSCULAR VOLUME 97 fL (79-100); MONO # 0.7 x10^3/uL (0.0-1.1); MONO % 7 % (0-9); NEUT # 7.4 x10^3/uL (1.8-7.7); NEUT % 71 % (31-73); PLATELET COUNT 410 x10^3/uL (140-400); RED BLOOD COUNT 3.52 x10^6/uL (4.30-5.70); RED CELL DISTRIBUTION WIDTH 13.5 % (11.5-14.5); WHITE BLOOD COUNT 10.5 x10^3/uL (4.0-11.0)
[2020-02-18 05:10] LABS: CALCIUM 8.1 mg/dL (8.5-10.1); CREATININE 1.1 mg/dL (0.7-1.3); GFR 64.1; POTASSIUM 3.3 mmol/L (3.5-5.1)
[2020-02-18 07:00] VITALS: BP 107/66
[2020-02-18] MEDS: PRAMIPEXOLE 0.25 MG TABLET. PO SCH (08:19)
[2020-02-18] MEDS: LACTOBACILLUS RHAMNOSUS GG 1 CAPSULE. PO SCH ×2 (08:19→20:37)
[2020-02-18] MEDS: ASPIRIN CHEWABLE 81 MG TABLET. PO SCH (08:20)
[2020-02-18] MEDS: METOPROLOL SUCC 24HR ER 25 MG TAB.ER.24H. PO SCH (08:20)
[2020-02-18] MEDS: FERROUS SULFATE 325 MG TABLET. PO SCH ×3 (08:20→16:15)
[2020-02-18] MEDS: DULoxetine HCL 30 MG CAPSULE.DR PO SCH (08:20)
[2020-02-18] MEDS: FUROSEMIDE 40 MG TABLET. PO SCH (08:20)
[2020-02-18] MEDS: LOSARTAN POTASSIUM 50 MG TABLET. PO SCH (08:21)
[2020-02-18] MEDS: DOCUSATE SODIUM 100 MG CAPSULE. PO SCH (08:23)
--- NOTE | 2020-02-18 09:20 | PDOC ---
Infectious Disease Note Subjective Subjective pt is feeling better, knee leakage has improved ROS ROS no n/v/d/fever Vital Sign Vital Signs Vital Signs Date Time Temp Pulse Resp B/P (MAP) Pulse Ox O2 Delivery O2 Flow Rate FiO2 02/18/20 08:21 66 107/66 02/18/20 07:00 97.9 17 97 Room Air 97.9 Physical Exam PHYSICAL EXAM CONSTITUTIONAL: He is sitting upright in bed. He is eating breakfast. He is in no acute distress. HEENT: Pupils have some cataracts. Normal conjunctivae. Oral cavity, pharynx was clear. NECK: Supple. Good range of motion. LUNGS: Clear to auscultation. HEART: S1, S2. ABDOMEN: Obese, soft. Decreased, but positive bowel sounds. EXTREMITIES: Without clubbing, cyanosis. He has left postop dressing in place with a VAC. Lower extremities have some edema and some chronic venous stasis changes. SKIN: Warm to touch without generalized rash. NEUROLOGIC: He is nonfocal. PSYCHIATRIC: Affect is pleasant. Labs Lab Laboratory Tests Test 02/18/20 03:45 White Blood Count 10.5 x10^3/uL (4.0-11.0) Red Blood Count 3.52 x10^6/uL (4.30-5.70) Hemoglobin 11.8 g/dL (13.0-17.5) Hematocrit 34.2 % (39.0-53.0) Mean Corpuscular Volume 97 fL (79-100) Mean Corpuscular Hemoglobin 33 pg (25-35) Mean Corpuscular Hemoglobin Concent 34 g/dL (31-37) Red Cell Distribution Width 13.5 % (11.5-14.5) Platelet Count 410 x10^3/uL (140-400) Neutrophils (%) (Auto) 71 % (31-73) Lymphocytes (%) (Auto) 18 % (24-48) Monocytes (%) (Auto) 7 % (0-9) Eosinophils (%) (Auto) 4 % (0-3) Basophils (%) (Auto) 1 % (0-3) Neutrophils # (Auto) 7.4 x10^3/uL (1.8-7.7) Lymphocytes # (Auto) 1.9 x10^3/uL (1.0-4.8) Monocytes # (Auto) 0.7 x10^3/uL (0.0-1.1) Eosinophils # (Auto) 0.4 x10^3/uL (0.0-0.7) Basophils # (Auto) 0.1 x10^3/uL (0.0-0.2) Sodium Level 139 mmol/L (136-145) Potassium Level 3.3 mmol/L (3.5-5.1) Chloride Level 102 mmol/L (98-107) Carbon Dioxide Level 32 mmol/L (21-32) Anion Gap 5 (6-14) Blood Urea Nitrogen 15 mg/dL (8-26) Creatinine 1.1 mg/dL (0.7-1.3) Estimated GFR (Cockcroft-Gault) 64.1 Glucose Level 100 mg/dL (70-99) Calcium Level 8.1 mg/dL (8.5-10.1) Micro Microbiology 02/14/20 Gram Stain - Final, Resulted 02/14/20 Aerobic and Anaerobic Culture - Preliminary, Resulted 02/12/20 Gram Stain - Final, Resulted 02/12/20 Aerobic and Anaerobic Culture - Preliminary, Resulted 02/12/20 Blood Culture - Preliminary, Resulted NO GROWTH AFTER 4 DAYS Objective Assessment 1. 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 s/p Irrigation debridement of left knee with exchange of polyethylene tibial component on 02/13 2. Leukocytosis, status post steroids on the . 3. Acute kidney injury. 4. Bilateral lower extremity edema. Plan Plan of Care Dapto and Cefepime last pm - Check CRP F/u labs and cults picc leg elevation d/w NOVA GALEAS MD Feb 18, 2020 09:20
--- NOTE | 2020-02-18 10:30 | PDOC ---
PROGRESS NOTES Date of Service DATE: 02/18/20 TIME: 10:26 Subjective Subjective Problems overnight: Knee feels good he notes that both legs are much less swollen Objective Vital Signs Vital Signs Date Time Temp Pulse Resp B/P (MAP) Pulse Ox O2 Delivery O2 Flow Rate FiO2 02/18/20 08:21 66 107/66 02/18/20 07:00 97.9 17 97 Room Air 97.9 02/14/20 11:33 2.0 Physical Exam Left knee incision appears well opposed there is minimal serosanguineous drainage she has good early motion intact distal neurovascular status, both legs have edema very significantly resolved than their baseline Labs Laboratory Tests Test 02/17/20 07:30 02/18/20 03:45 White Blood Count 11.4 x10^3/uL (4.0-11.0) 10.5 x10^3/uL (4.0-11.0) Red Blood Count 3.54 x10^6/uL (4.30-5.70) 3.52 x10^6/uL (4.30-5.70) Hemoglobin 11.7 g/dL (13.0-17.5) 11.8 g/dL (13.0-17.5) Hematocrit 34.8 % (39.0-53.0) 34.2 % (39.0-53.0) Mean Corpuscular Volume 98 fL (79-100) 97 fL (79-100) Mean Corpuscular Hemoglobin 33 pg (25-35) 33 pg (25-35) Mean Corpuscular Hemoglobin Concent 34 g/dL (31-37) 34 g/dL (31-37) Red Cell Distribution Width 13.7 % (11.5-14.5) 13.5 % (11.5-14.5) Platelet Count 417 x10^3/uL (140-400) 410 x10^3/uL (140-400) Neutrophils (%) (Auto) 70 % (31-73) 71 % (31-73) Lymphocytes (%) (Auto) 18 % (24-48) 18 % (24-48) Monocytes (%) (Auto) 7 % (0-9) 7 % (0-9) Eosinophils (%) (Auto) 5 % (0-3) 4 % (0-3) Basophils (%) (Auto) 1 % (0-3) 1 % (0-3) Neutrophils # (Auto) 7.9 x10^3/uL (1.8-7.7) 7.4 x10^3/uL (1.8-7.7) Lymphocytes # (Auto) 2.1 x10^3/uL (1.0-4.8) 1.9 x10^3/uL (1.0-4.8) Monocytes # (Auto) 0.7 x10^3/uL (0.0-1.1) 0.7 x10^3/uL (0.0-1.1) Eosinophils # (Auto) 0.5 x10^3/uL (0.0-0.7) 0.4 x10^3/uL (0.0-0.7) Basophils # (Auto) 0.1 x10^3/uL (0.0-0.2) 0.1 x10^3/uL (0.0-0.2) Prothrombin Time 15.7 SEC (11.7-14.0) Prothromb Time International Ratio 1.3 (0.8-1.1) Sodium Level 140 mmol/L (136-145) 139 mmol/L (136-145) Potassium Level 4.1 mmol/L (3.5-5.1) 3.3 mmol/L (3.5-5.1) Chloride Level 103 mmol/L (98-107) 102 mmol/L (98-107) Carbon Dioxide Level 32 mmol/L (21-32) 32 mmol/L (21-32) Anion Gap 5 (6-14) 5 (6-14) Blood Urea Nitrogen 18 mg/dL (8-26) 15 mg/dL (8-26) Creatinine 1.3 mg/dL (0.7-1.3) 1.1 mg/dL (0.7-1.3) Estimated GFR (Cockcroft-Gault) 52.9 64.1 Glucose Level 124 mg/dL (70-99) 100 mg/dL (70-99) Calcium Level 8.2 mg/dL (8.5-10.1) 8.1 mg/dL (8.5-10.1) Creatine Kinase 181 U/L (39-308) Laboratory Tests Test 02/18/20 03:45 White Blood Count 10.5 x10^3/uL (4.0-11.0) Red Blood Count 3.52 x10^6/uL (4.30-5.70) Hemoglobin 11.8 g/dL (13.0-17.5) Hematocrit 34.2 % (39.0-53.0) Mean Corpuscular Volume 97 fL (79-100) Mean Corpuscular Hemoglobin 33 pg (25-35) Mean Corpuscular Hemoglobin Concent 34 g/dL (31-37) Red Cell Distribution Width 13.5 % (11.5-14.5) Platelet Count 410 x10^3/uL (140-400) Neutrophils (%) (Auto) 71 % (31-73) Lymphocytes (%) (Auto) 18 % (24-48) Monocytes (%) (Auto) 7 % (0-9) Eosinophils (%) (Auto) 4 % (0-3) Basophils (%) (Auto) 1 % (0-3) Neutrophils # (Auto) 7.4 x10^3/uL (1.8-7.7) Lymphocytes # (Auto) 1.9 x10^3/uL (1.0-4.8) Monocytes # (Auto) 0.7 x10^3/uL (0.0-1.1) Eosinophils # (Auto) 0.4 x10^3/uL (0.0-0.7) Basophils # (Auto) 0.1 x10^3/uL (0.0-0.2) Sodium Level 139 mmol/L (136-145) Potassium Level 3.3 mmol/L (3.5-5.1) Chloride Level 102 mmol/L (98-107) Carbon Dioxide Level 32 mmol/L (21-32) Anion Gap 5 (6-14) Blood Urea Nitrogen 15 mg/dL (8-26) Creatinine 1.1 mg/dL (0.7-1.3) Estimated GFR (Cockcroft-Gault) 64.1 Glucose Level 100 mg/dL (70-99) Calcium Level 8.1 mg/dL (8.5-10.1) Assessment Assessment POD#status post irrigation debridement left knee Plan Plan of Care Cultures negative to date, reviewed infectious disease note and thanks for recommendations I went over with him that based on the risk although cultures are negative white blood cell count was high and I think we have to treat this aggressively based on the potential of a bad outcome if infection is indeed present even though negative cultures. I also emphasized the necessity of keeping up on his diuretic as recommended particularly as he has resolved very significantly the swelling in both legs since keeping on it as directed. He verbalized agreement Continue mobilize weightbearing as tolerated and likely can replace back to a ginger dressing Justicifation of Admission Dx: Justifications for Admission: Justification of Admission Dx: Yes Cellulitis: Cellulitis ARTIE KEE MD Feb 18, 2020 10:30
[2020-02-18 10:39] VITALS: BP 132/51
[2020-02-18] MEDS ORDERED: ERTAPENEM 1GM IVPB (GENERIC) 50 ML IV ONE (11:00)
--- NOTE | 2020-02-18 11:33 | SNU/HH DC ---
DISCHARGE WITH HOME HEALTH DISCHARGE INFORMATION: Final Diagnosis: Problems Medical Problems: (1) Cellulitis of lower extremity Status: Acute (2) Infection of left knee Status: Acute (3) Lower extremity edema Status: Acute Condition on Discharge: Stable CODE STATUS: Code Status: Full HOME HEALTH: Face to Face: I certify this patient is under my care and that I, or a nurse practitioner or physician's paraprofessional education assistant working with me, had a face to face encounter that meets the physician face to face encounter requirements with this patient on []. Medical Complications: Other (Knee infection please assist with IV antibiotics daptomycin and Invanz) [facility] For: Assess/Skilled Observatio RN For Eval/Treatment: Yes Physical Therapy For: Evalulation/Treatment Occupational Therapy For: Evaluation/Treatment Home Health Aide For: Self-care PHYS THER For: Community Resources Pt Meets Homebound Status: Poor coordination w/ amb. POST DISCHARGE ORDERS: Activity Instructions for Disc: Activity as tolerated Weight Bearing Status after Di: As tolerated Bathing Instructions: Shower-keep dressing dry, No Tub Bath until see DIET AFTER DISCHARGE: Cardiac Wound/Incision Care: Ice to area for comfort, Keep wound/cast CDI, Do not change dressing TREATMENT/EQUIPMENT ORDERS: Adaptive Equipment Issued: Front wheeled walker CERTIFICATION STATEMENT: Certification Statement: Certification Statement: Based on the above finding, I certify that this patient is confined to the home and needs intermittent residential care, physical therapy and/or speech therapy, or continues to need occupational therapy.~ This patient is under my care, and I have initiated the establishment of the plan of care.~ This patient will be followed by myself or a community physician who will periodically review the plan of care. Home Meds Active Scripts Oxycodone HCl/Acetaminophen (Percocet 5-325 mg Tablet) 1 Each Tablet, 1 EACH PO PRN Q4HRS PRN for PAIN, #60 TAB Prov:ARTIE KEE MD 02/06/20 Reported Medications [POTASSIUM 99 MG otc] No Conflict Check, for SUPPLEMENT 02/04/20 Furosemide (FUROSEMIDE) 40 Mg Tablet, 1 TAB PO DAILY for DIURETIC, #30 TAB 5 Refills 02/04/20 Aspirin (Children's Aspirin) 81 Mg Tab.chew, 1 TAB PO DAILY for HEART for 30 Days, #30 TAB 0 Refills 01/21/20 Pramipexole Di-Hcl (MIRAPEX) 0.25 Mg Tablet, 1 MG PO DAILY for RLS, TAB 01/21/20 Duloxetine Hcl (CYMBALTA) 30 Mg Capsule.dr, 1 CAP PO DAILY for DEPRESSION, #30 CAP 5 Refills 01/21/20 Losartan Potassium (LOSARTAN POTASSIUM) 100 Mg Tablet, 100 MG PO DAILY for HYPERTENSION, TAB 01/21/20 Ferrous Sulfate (FERROUS SULFATE) 325 Mg Tablet, 325 MG PO TIDAFTMEAL 08/06/13 Warfarin Sodium (WARFARIN SODIUM) 3 Mg Tablet, 3 MG PO HS 08/06/13 Atorvastatin Calcium (ATORVASTATIN CALCIUM) 40 Mg Tablet, 40 MG PO HS 08/06/13 Diltiazem Hcl (DILTIAZEM 24HR ER) 240 Mg Cap.er.24h, 240 MG PO DAILY07 08/06/13 Metoprolol Succinate (METOPROLOL SUCCINATE ( XL )) 25 Mg Tab.er.24h, 12.5 MG PO DAILY08 08/06/13 Tamsulosin Hcl (TAMSULOSIN HCL) 0.4 Mg Cap.er.24h, 0.8 MG PO DAILYBFRSUP 08/06/13 DELILAH ZAVALETA III DO Feb 18, 2020 11:33
--- NOTE | 2020-02-18 12:05 | PDOC ---
[facility] PROGRESS NOTE Date of Service DOS: DATE: 02/18/20 TIME: 11:56 Chief Complaint Chief Complaint Left leg erythema, leg swelling History of Present Illness History of Present Illness 02/18/2020 Patient seen and examined Discussed with RN Chart reviewed Patient in NAD was sitting in chair calmly Left knee wound still leaking ID wants home IV antibiotics so patient needs PICC line for home IV daptomycin Discharge planning in progress 02/17/20 Patient was seen and examined Discussed with RN Chart reviewed I called infectious disease he would like to continue IV antibiotic and eventually home IV antibiotics Vitals/I&O Vitals/I&O: Vital Signs Date Time Temp Pulse Resp B/P (MAP) Pulse Ox O2 Delivery O2 Flow Rate FiO2 02/18/20 10:39 97.8 79 18 132/51 (78) 96 Room Air 97.8 I & O 02/17/20 02/17/20 02/18/20 15:00 23:00 07:00 Intake Total 780 ml 240 ml Output Total 450 ml Balance 780 ml 240 ml -450 ml Physical Exam Physical Exam: CONSTITUTIONAL: He is sitting upright in bed. He is eating breakfast. He is in no acute distress. HEENT: Pupils have some cataracts. Normal conjunctivae. Oral cavity, pharynx was clear. NECK: Supple. Good range of motion. LUNGS: Clear to auscultation. HEART: S1, S2. ABDOMEN: Obese, soft. Decreased, but positive bowel sounds. EXTREMITIES: Without clubbing, cyanosis. He has left postop dressing in place with a VAC. Lower extremities have some edema and some chronic venous stasis changes. SKIN: Warm to touch without generalized rash. NEUROLOGIC: He is nonfocal. PSYCHIATRIC: Affect is pleasant. General: Alert, Cooperative, No acute distress Heart: Regular rate, Normal S1, Normal S2 Lungs: Clear Abdomen: Soft, No tenderness Extremities: No cyanosis, Other (Left lower extremity wrapped in bandage and leaking fluid) Skin: No rashes, No significant lesion Labs Labs: Laboratory Tests Test 02/18/20 03:45 White Blood Count 10.5 x10^3/uL (4.0-11.0) Red Blood Count 3.52 x10^6/uL (4.30-5.70) Hemoglobin 11.8 g/dL (13.0-17.5) Hematocrit 34.2 % (39.0-53.0) Mean Corpuscular Volume 97 fL (79-100) Mean Corpuscular Hemoglobin 33 pg (25-35) Mean Corpuscular Hemoglobin Concent 34 g/dL (31-37) Red Cell Distribution Width 13.5 % (11.5-14.5) Platelet Count 410 x10^3/uL (140-400) Neutrophils (%) (Auto) 71 % (31-73) Lymphocytes (%) (Auto) 18 % (24-48) Monocytes (%) (Auto) 7 % (0-9) Eosinophils (%) (Auto) 4 % (0-3) Basophils (%) (Auto) 1 % (0-3) Neutrophils # (Auto) 7.4 x10^3/uL (1.8-7.7) Lymphocytes # (Auto) 1.9 x10^3/uL (1.0-4.8) Monocytes # (Auto) 0.7 x10^3/uL (0.0-1.1) Eosinophils # (Auto) 0.4 x10^3/uL (0.0-0.7) Basophils # (Auto) 0.1 x10^3/uL (0.0-0.2) Sodium Level 139 mmol/L (136-145) Potassium Level 3.3 mmol/L (3.5-5.1) Chloride Level 102 mmol/L (98-107) Carbon Dioxide Level 32 mmol/L (21-32) Anion Gap 5 (6-14) Blood Urea Nitrogen 15 mg/dL (8-26) Creatinine 1.1 mg/dL (0.7-1.3) Estimated GFR (Cockcroft-Gault) 64.1 Glucose Level 100 mg/dL (70-99) Calcium Level 8.1 mg/dL (8.5-10.1) Review of Systems Review of Systems: Denies pain Denies weakness Assessment and Plan Assessmemt and Plan Problems Medical Problems: (1) Cellulitis of lower extremity Status: Acute (2) Infection of left knee Status: Acute (3) Lower extremity edema Status: Acute Assessment: Medical Problems: (1) Cellulitis of lower extremity Status: Acute (2) Infection of left knee Status: Acute (3) Lower extremity edema Status: Acute Plan: Continue IV ABx Wound care Need PICC line per ID for home IV ABx DVT prophylaxis Full code Home meds Discharge planning in progress with ID Comment Review of Relevant I have reviewed the following items deyvi (where applicable) has been applied. Medications: Current Medications Medications (Trade) Dose Ordered Sig/Jaime Route PRN Reason Start Time Stop Time Status Last Admin Dose Admin Ertapenem 50 ml @ 100 mls/hr 1X ONCE IV 02/18/20 11:00 02/18/20 11:29 DC 02/18/20 11:06 DELILAH ZAVALETA III DO Feb 18, 2020 12:05
--- NOTE | 2020-02-18 12:27 | DS ---
DATE OF DISCHARGE: 02/18/2020 ADMISSION DIAGNOSIS: Left knee infection. DISCHARGE DIAGNOSIS: Chronic left knee infection. HOSPITAL COURSE: The patient is a pleasant 80-year-old male who presented with left knee infection. He has had hardware placed in that knee. We consulted Infectious Disease and Orthopedics. We gave him IV antibiotics. We did wound care. He also went for irrigation and debridement of left knee with exchange of polyethylene tibial component. Today, I saw him and examined him, he is at his baseline, but we would like to treat with IV antibiotics. We are going to get him home with home health for IV antibiotics. DISPOSITION: Home with home health. ACTIVITY: As tolerated. DIET: Low sodium. MEDICATIONS: Please see the MRAD. TOTAL TIME: 31 minutes. DELILAH ZAVALETA DO DR: ZAINAB/emelyn JOB#: [id number] / [id number]
[2020-02-18] MEDS ORDERED: LIDOCAINE WITH 8.4% SOD BICARB 3 ML DISP.SYRIN. ONE (13:35)
[2020-02-18] MEDS ORDERED: LIDOCAINE WITH 8.4% SOD BICARB 3 ML DISP.SYRIN. INJ ONE (13:45)
[2020-02-18 15:07] VITALS: BP_SYST 142
--- NOTE | 2020-02-18 15:18 | RAD ---
Exam: Fluoroscopic and ultrasound guided right percutaneous inserted central venous catheter placement 02/18/2020 1:14 PM .Indication: longterm antibiotics Technique: Informed oral and written consent were obtained. The right upper extremity was prepped and draped using sterile barrier technique. All elements of maximal sterile barrier technique including the use of a cap, mask, sterile gown, sterile gloves, large sterile sheet, appropriate hand hygiene, and 2% chlorhexidine for cutaneous antisepsis (or acceptable alternative antiseptic per current guidelines) were followed for this procedure.. Real-time ultrasound demonstrated a patent right basilic vein which was prepped and draped in usual sterile fashion. 1% lidocaine used for local anesthesia. Using real-time ultrasound guidance the access needle percutaneously punctured the selected right basilic vein. Reference ultrasound images were saved to the medical record. A guidewire was advanced through the needle to the cavoatrial junction, and a peel-away sheath placed. The catheter was cut to length and inserted through the peel-away sheath such that its tip is at the cavoatrial junction. The wire and sheath were removed, and the catheter secured in place, and a sterile dressing was applied. Catheter was found to flush and aspirate normally. No immediate complications are identified. FLUORO TIME: 0.3 DOSE AREA PRODUCT: 1 Gycm2 Impression: Ultrasound and fluoroscopically guided placement of a right upper extremity PICC line.
[2020-02-18] MEDS: WARFARIN 3 MG TABLET. PO SCH (15:50)
[2020-02-18] MEDS: TAMSULOSIN 0.4 MG CAP.ER.24H. PO SCH (16:15)
[2020-02-18 19:00] VITALS: BP 125/41
[2020-02-18] MEDS: DAPTOmycin (GENERIC) IVPB 530 MG in IV NORMAL SALINE 50ML 50 ML IV SCH (20:37)
[2020-02-18] MEDS: ATORVASTATIN CALCIUM 40 MG TABLET. PO SCH (20:37)
[2020-02-18 23:00] VITALS: BP 125/45
[2020-02-19 03:00] VITALS: BP 100/62
[2020-02-19 06:59] LABS: CALCIUM 8.3 mg/dL (8.5-10.1); GFR 71.5; POTASSIUM 3.5 mmol/L (3.5-5.1)
[2020-02-19 07:00] VITALS: BP 136/57
[2020-02-19 07:07] LABS: BASO # 0.1 x10^3/uL (0.0-0.2); BASO % 1 % (0-3); EOS # 0.2 x10^3/uL (0.0-0.7); EOS % 2 % (0-3); HEMATOCRIT 34.5 % (39.0-53.0); HEMOGLOBIN 11.8 g/dL (13.0-17.5); LYMPH # 1.9 x10^3/uL (1.0-4.8); LYMPH % 20 % (24-48); MEAN CORPUSCULAR HEMOGLOBIN 33 pg (25-35); MEAN CORPUSCULAR HGB CONC 34 g/dL (31-37); MEAN CORPUSCULAR VOLUME 97 fL (79-100); MONO # 0.5 x10^3/uL (0.0-1.1); MONO % 6 % (0-9); NEUT # 6.8 x10^3/uL (1.8-7.7); NEUT % 72 % (31-73); PLATELET COUNT 340 x10^3/uL (140-400); RED BLOOD COUNT 3.57 x10^6/uL (4.30-5.70); RED CELL DISTRIBUTION WIDTH 13.6 % (11.5-14.5); WHITE BLOOD COUNT 9.5 x10^3/uL (4.0-11.0)
[2020-02-19 07:44] LABS: PROTHROMBIN TIME PATIENT 15.6 SEC (11.7-14.0)
[2020-02-19] MEDS: ASPIRIN CHEWABLE 81 MG TABLET. PO SCH (08:28)
[2020-02-19] MEDS: DULoxetine HCL 30 MG CAPSULE.DR PO SCH (08:28)
[2020-02-19] MEDS: LOSARTAN POTASSIUM 50 MG TABLET. PO SCH (08:28)
[2020-02-19] MEDS: FUROSEMIDE 40 MG TABLET. PO SCH (08:28)
[2020-02-19] MEDS: FERROUS SULFATE 325 MG TABLET. PO SCH ×2 (08:28→13:00)
[2020-02-19] MEDS: PRAMIPEXOLE 0.25 MG TABLET. PO SCH (08:28)
[2020-02-19] MEDS: LACTOBACILLUS RHAMNOSUS GG 1 CAPSULE. PO SCH (08:28)
[2020-02-19] MEDS: DOCUSATE SODIUM 100 MG CAPSULE. PO SCH (08:29)
[2020-02-19] MEDS: METOPROLOL SUCC 24HR ER 25 MG TAB.ER.24H. PO SCH (08:29)
[2020-02-19] MEDS ORDERED: POTASSIUM CHLORIDE 20 MEQ TABLET.ER. PO ONE (08:45)
--- NOTE | 2020-02-19 09:13 | PDOC ---
[facility] PROGRESS NOTE Date of Service DOS: DATE: 02/19/20 TIME: 09:07 Chief Complaint Chief Complaint Left leg erythema, leg swelling History of Present Illness History of Present Illness 02/19/2020 Patient seen and examined Discussed with RN Reviewed chart Patient sitting with NAD Hypokalemia PICC line inserted - looks clean and dry Discharge disposition pending 02/18/2020 Patient seen and examined Discussed with RN Chart reviewed Patient in NAD was sitting in chair calmly Left knee wound still leaking ID wants home IV antibiotics so patient needs PICC line for home IV daptomycin Discharge planning in progress 02/17/20 Patient was seen and examined Discussed with RN Chart reviewed I called infectious disease he would like to continue IV antibiotic and eventually home IV antibiotics Vitals/I&O Vitals/I&O: Vital Signs Date Time Temp Pulse Resp B/P (MAP) Pulse Ox O2 Delivery O2 Flow Rate FiO2 02/19/20 08:30 76 136/57 02/19/20 07:00 98.7 18 93 Room Air 98.7 l I & O 02/18/20 02/18/20 02/19/20 15:00 23:00 07:00 Intake Total 300 ml Balance 300 ml Physical Exam Physical Exam: CONSTITUTIONAL: He is sitting upright in bed. He is eating breakfast. He is in no acute distress. HEENT: Pupils have some cataracts. Normal conjunctivae. Oral cavity, pharynx was clear. NECK: Supple. Good range of motion. LUNGS: Clear to auscultation. HEART: S1, S2. ABDOMEN: Obese, soft. Decreased, but positive bowel sounds. EXTREMITIES: Without clubbing, cyanosis. He has left postop dressing in place with a VAC. Lower extremities have some edema and some chronic venous stasis changes. SKIN: Warm to touch without generalized rash. NEUROLOGIC: He is nonfocal. PSYCHIATRIC: Affect is pleasant. General: Alert, Cooperative, No acute distress Heart: Regular rate, Normal S1, Normal S2 Lungs: Clear Abdomen: Soft, No tenderness Extremities: No cyanosis, Other (Left lower extremity wrapped in bandage and leaking fluid) Skin: No rashes Labs Labs: Laboratory Tests Test 02/19/20 06:40 White Blood Count 9.5 x10^3/uL (4.0-11.0) Red Blood Count 3.57 x10^6/uL (4.30-5.70) Hemoglobin 11.8 g/dL (13.0-17.5) Hematocrit 34.5 % (39.0-53.0) Mean Corpuscular Volume 97 fL (79-100) Mean Corpuscular Hemoglobin 33 pg (25-35) Mean Corpuscular Hemoglobin Concent 34 g/dL (31-37) Red Cell Distribution Width 13.6 % (11.5-14.5) Platelet Count 340 x10^3/uL (140-400) Neutrophils (%) (Auto) 72 % (31-73) Lymphocytes (%) (Auto) 20 % (24-48) Monocytes (%) (Auto) 6 % (0-9) Eosinophils (%) (Auto) 2 % (0-3) Basophils (%) (Auto) 1 % (0-3) Neutrophils # (Auto) 6.8 x10^3/uL (1.8-7.7) Lymphocytes # (Auto) 1.9 x10^3/uL (1.0-4.8) Monocytes # (Auto) 0.5 x10^3/uL (0.0-1.1) Eosinophils # (Auto) 0.2 x10^3/uL (0.0-0.7) Basophils # (Auto) 0.1 x10^3/uL (0.0-0.2) Prothrombin Time 15.6 SEC (11.7-14.0) Prothromb Time International Ratio 1.3 (0.8-1.1) Sodium Level 138 mmol/L (136-145) Potassium Level 3.5 mmol/L (3.5-5.1) Chloride Level 102 mmol/L (98-107) Carbon Dioxide Level 31 mmol/L (21-32) Anion Gap 5 (6-14) Blood Urea Nitrogen 15 mg/dL (8-26) Creatinine 1.0 mg/dL (0.7-1.3) Estimated GFR (Cockcroft-Gault) 71.5 Glucose Level 100 mg/dL (70-99) Calcium Level 8.3 mg/dL (8.5-10.1) Review of Systems Review of Systems: Denies pain Denies weakness Assessment and Plan Assessmemt and Plan Problems Medical Problems: (1) Cellulitis of lower extremity Status: Acute (2) Infection of left knee Status: Acute (3) Lower extremity edema Status: Acute Assessment: Medical Problems: (1) Cellulitis of lower extremity (2) Infection of left knee (3) Lower extremity edema Plan: Continue IV ABx Wound care DVT prophylaxis Full code Home meds Give potassium 40mg po to correct hypokalemia Discharge disposition pending Comment Review of Relevant I have reviewed the following items deyvi (where applicable) has been applied. Medications: Current Medications Medications (Trade) Dose Ordered Sig/Jaime Route PRN Reason Start Time Stop Time Status Last Admin Dose Admin Ertapenem 50 ml @ 100 mls/hr 1X ONCE IV 02/18/20 11:00 02/18/20 11:29 DC 02/18/20 11:06 Lidocaine HCl (Buffered Lidocaine 1%) 3 ml 1X ONCE INJ 02/18/20 13:45 02/18/20 13:46 DC 02/18/20 13:45 DELILAH ZAVALETA III DO Feb 19, 2020 09:13
--- NOTE | 2020-02-19 09:25 | PDOC ---
Infectious Disease Note Subjective Subjective pt is feeling better, knee leakage has improved ROS ROS no n/v/d/ Vital Sign Vital Signs Vital Signs Date Time Temp Pulse Resp B/P (MAP) Pulse Ox O2 Delivery O2 Flow Rate FiO2 02/19/20 08:30 76 136/57 02/19/20 07:00 98.7 18 93 Room Air 98.7 Physical Exam PHYSICAL EXAM CONSTITUTIONAL: He is sitting upright in bed. He is eating breakfast. He is in no acute distress. HEENT: Pupils have some cataracts. Normal conjunctivae. Oral cavity, pharynx was clear. NECK: Supple. Good range of motion. LUNGS: Clear to auscultation. HEART: S1, S2. ABDOMEN: Obese, soft. Decreased, but positive bowel sounds. EXTREMITIES: Without clubbing, cyanosis. He has left postop dressing in place with a VAC. Lower extremities have some edema and some chronic venous stasis changes. SKIN: Warm to touch without generalized rash. NEUROLOGIC: He is nonfocal. PSYCHIATRIC: Affect is pleasant. Labs Lab Laboratory Tests Test 02/19/20 06:40 White Blood Count 9.5 x10^3/uL (4.0-11.0) Red Blood Count 3.57 x10^6/uL (4.30-5.70) Hemoglobin 11.8 g/dL (13.0-17.5) Hematocrit 34.5 % (39.0-53.0) Mean Corpuscular Volume 97 fL (79-100) Mean Corpuscular Hemoglobin 33 pg (25-35) Mean Corpuscular Hemoglobin Concent 34 g/dL (31-37) Red Cell Distribution Width 13.6 % (11.5-14.5) Platelet Count 340 x10^3/uL (140-400) Neutrophils (%) (Auto) 72 % (31-73) Lymphocytes (%) (Auto) 20 % (24-48) Monocytes (%) (Auto) 6 % (0-9) Eosinophils (%) (Auto) 2 % (0-3) Basophils (%) (Auto) 1 % (0-3) Neutrophils # (Auto) 6.8 x10^3/uL (1.8-7.7) Lymphocytes # (Auto) 1.9 x10^3/uL (1.0-4.8) Monocytes # (Auto) 0.5 x10^3/uL (0.0-1.1) Eosinophils # (Auto) 0.2 x10^3/uL (0.0-0.7) Basophils # (Auto) 0.1 x10^3/uL (0.0-0.2) Prothrombin Time 15.6 SEC (11.7-14.0) Prothromb Time International Ratio 1.3 (0.8-1.1) Sodium Level 138 mmol/L (136-145) Potassium Level 3.5 mmol/L (3.5-5.1) Chloride Level 102 mmol/L (98-107) Carbon Dioxide Level 31 mmol/L (21-32) Anion Gap 5 (6-14) Blood Urea Nitrogen 15 mg/dL (8-26) Creatinine 1.0 mg/dL (0.7-1.3) Estimated GFR (Cockcroft-Gault) 71.5 Glucose Level 100 mg/dL (70-99) Calcium Level 8.3 mg/dL (8.5-10.1) Micro Microbiology 02/14/20 Gram Stain - Final, Resulted 02/14/20 Aerobic and Anaerobic Culture - Preliminary, Resulted 02/12/20 Gram Stain - Final, Resulted 02/12/20 Aerobic and Anaerobic Culture - Preliminary, Resulted 02/12/20 Blood Culture - Preliminary, Resulted NO GROWTH AFTER 4 DAYS Objective Assessment 1. 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 s/p Irrigation debridement of left knee with exchange of polyethylene tibial component on 02/13 2. Leukocytosis, status post steroids on the . 3. Acute kidney injury. 4. Bilateral lower extremity edema. Plan Plan of Care dapto and invanz, since pt will have to come here, he cannot afford at home he does not want to go to SNF Check CRP F/u labs and cults picc leg elevation pt likely will have to come here for iv antibiotics, will change to dapto and invanz, pros and cons discussed, failure possibility discussed, side effects and complications of iv antibiotics and picc discussed f/u with me in 2 wks, wkly cbc, bun/cr, sed rate and cpk lashawn with me on at 200 NOVA GALEAS MD Feb 19, 2020 09:25
[2020-02-19 11:00] VITALS: BP 116/48
--- NOTE | 2020-02-19 14:50 | NUR ---
Discharge Note: CHRISTIAN SMITH LA JOYA Discharge instructions and discharge home medications reviewed with Patient and his and a copy given. All questions have been answered and understanding verbalized. The following instructions and handouts were given: information about follow up appointments, surgical incision and dressing, medications, follow up infusion information and therapy follow up, etc. 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 Patient discharged to home with self care with , wheelchair used for mobility to discharge vehicle.
[2020-02-27] MEDS ORDERED: OXYC-325 PO (10:22)
== END 2020-02-19 14:50 | disposition home or self-care (01) | DRG 485 ==
LOC: ER 14:20 → ED HOLD 16:09 → 4 NORTH 20:30
PROVIDERS: ADMIT Family Medicine; ATTEND Family Medicine
PROC: 0SPD09Z Removal of Liner from Left Knee Joint, Open Approach (ICD-10-PCS; 2020-02-14)
PROC: 0SUW09Z Supplement Left Knee Joint, Tibial Surface with Liner, Open Approach (ICD-10-PCS; 2020-02-14)
PROC: 0MDP0ZZ Extraction of Left Knee Bursa and Ligament, Open Approach (ICD-10-PCS; principal; 2020-02-14 07:30)
PROC: 02HV33Z Insertion of Infusion Device into Superior Vena Cava, Percutaneous Approach (ICD-10-PCS; 2020-02-18)
PROC: B548ZZA Ultrasonography of Superior Vena Cava, Guidance (ICD-10-PCS; 2020-02-18)
PROC: B5181ZA Fluoroscopy of Superior Vena Cava using Low Osmolar Contrast, Guidance (ICD-10-PCS; 2020-02-18)
DX: T84.54XA Infection and inflammatory reaction due to internal left knee prosthesis, initial encounter (principal); E43 Unspecified severe protein-calorie malnutrition; L03.116 Cellulitis of left lower limb; I13.0 Hypertensive heart and chronic kidney disease with heart failure and stage 1 through stage 4 chronic kidney disease, or unspecified chronic kidney disease; I50.32 Chronic diastolic (congestive) heart failure; N17.9 Acute kidney failure, unspecified; E78.00 Pure hypercholesterolemia, unspecified; E78.5 Hyperlipidemia, unspecified; E87.6 Hypokalemia; F17.200 Nicotine dependence, unspecified, uncomplicated; I48.91 Unspecified atrial fibrillation; N18.9 Chronic kidney disease, unspecified; Z79.01 Long term (current) use of anticoagulants; Z82.3 Family history of stroke; Z82.49 Family history of ischemic heart disease and other diseases of the circulatory system; Z86.73 Personal history of transient ischemic attack (TIA), and cerebral infarction without residual deficits; Z91.14 Patient's other noncompliance with medication regimen; Z91.19 Patient's noncompliance with other medical treatment and regimen; E66.01 Morbid (severe) obesity due to excess calories; F32.9 Major depressive disorder, single episode, unspecified; F41.9 Anxiety disorder, unspecified; K21.9 Gastro-esophageal reflux disease without esophagitis; M19.90 Unspecified osteoarthritis, unspecified site; Y83.8 Other surgical procedures as the cause of abnormal reaction of the patient, or of later complication, without mention of misadventure at the time of the procedure; Y92.89 Other specified places as the place of occurrence of the external cause; Z20.828 Contact with and (suspected) exposure to other viral communicable diseases
CPT/HCPCS: 36415; 36573; 77001; 80048; 80053; 82550; 83605; 84145; 85007; 85025; 85610; 86140; 87040; 87071; 87075; 87176; 87426; 89050; 93971; A7015; C1713; C1751; C1892; J0171; J0330; J0690; J0692; J0878; J1100; J1335; J1885; J2270; J2405; J2704; J2710; J2795; J3010; J3370; J3490; J7030; 97110-GP; 97116-GP; 97530-GO; 97530-GP; 97535-GO; 99285-25; A4461; C1769; G0378; U0003-CS

== ENCOUNTER 2020-02-25 10:36 | Inpatient (IN) | payer BC ==
[~2020-02-25] VITALS: Ht 175.3 cm; Wt 115.0 kg
--- NOTE | 2020-02-25 10:59 | PHYS DOC ---
Past Medical History Past Medical History: A-Fib, High Cholesterol, Hypertension Past Surgical History: Other Additional Past Surgical Histo: left knee replacement surgery 02/04/20 Smoking Status: Light Tobacco Smoker Alcohol Use: None General Adult EDM: Chief Complaint: RIGHT ANKLE SWELLING, RIGHT SIDE CHEST WALL PAIN HPI: HPI: Patient is a 80 year old male who was brought here by EMS from home due to right ankle pain and right-sided rib pain. Patient had left knee replaced on February 04, [address] Talley. He subsequently had infection postoperatively. He had a PICC line in on the right arm, received IV antibiotic. Patient was here over the weekend to have IV antibiotics at the infusion clinic, when he was getting out of his car to get into his house he became weak , twist his right ankle and fell down his right side. Did not hit his head. Patient complained of right ankle pain, right-sided rib pain. Patient denies any back pain, no neck pain, no upper extremity pain. EMS foud that patient had a temperature 100.4 degrees at home. Review of Systems: Review of Systems: Constitutional: Denies fever or chills. [] Eyes: Denies change in visual acuity. [] HENT: Denies nasal congestion or sore throat. [] Respiratory: Denies cough or shortness of breath. [] Cardiovascular: Denies chest pain or edema. [] GI: Denies abdominal pain, nausea, vomiting, bloody stools or diarrhea. [] : Denies dysuria. [] Musculoskeletal: Positive for right ankle pain, right side rib pain Integument: Denies rash. [] Neurologic: Denies headache, focal weakness or sensory changes. [] Endocrine: Denies polyuria or polydipsia. [] Lymphatic: Denies swollen glands. [] Psychiatric: Denies depression or anxiety. [] Heart Score: Risk Factors: Risk Factors: DM, Current or recent (<one month) smoker, HTN, HLP, family history of CAD, obesity. Risk Scores: Score 0 - 3: 2.5% MACE over next 6 weeks - Discharge Home Score 4 - 6: 20.3% MACE over next 6 weeks - Admit for Clinical Observation Score 7 - 10: 72.7% MACE over next 6 weeks - Early Invasive Strategies Allergies: Allergies: Allergies Coded Allergies Type Severity Reaction Last Updated Verified No Known Drug Allergies 02/20/20 No Physical Exam: PE: Constitutional: Well developed, well nourished, no acute distress, non-toxic appearance. [] HENT: Normocephalic, atraumatic, bilateral external ears normal, oropharynx moist, no oral exudates, nose normal. [] Eyes: PERRLA, EOMI, conjunctiva normal, no discharge. [] Neck: Normal range of motion, no tenderness, supple, no stridor. [] Cardiovascular:Heart rate regular rhythm, no murmur [] Lungs & Thorax: Bilateral breath sounds clear to auscultation. Right side lateral lower ribs tender to palpation, no crepitus. Abdomen: Bowel sounds normal, soft, no tenderness, no masses, no pulsatile masses. [] Skin: Warm, dry, no erythema, no rash. [] Back: No tenderness, no CVA tenderness. [] Extremities: No tenderness, no cyanosis, no clubbing, ROM intact, no edema. Right ankle is tender and swelling at the lateral malleolus area, no open wound. No tender at right knee. Neurologic: Alert and oriented X 3, normal motor function, normal sensory function, no focal deficits noted. [] Psychologic: Affect normal, judgement normal, mood normal. [] Current Patient Data: Labs: Laboratory Tests Test 02/25/20 10:55 02/25/20 11:17 White Blood Count 9.2 x10^3/uL Red Blood Count 3.43 x10^6/uL Hemoglobin 11.3 g/dL Hematocrit 33.1 % Mean Corpuscular Volume 97 fL Mean Corpuscular Hemoglobin 33 pg Mean Corpuscular Hemoglobin Concent 34 g/dL Red Cell Distribution Width 13.8 % Platelet Count 348 x10^3/uL Neutrophils (%) (Auto) 75 % Lymphocytes (%) (Auto) 15 % Monocytes (%) (Auto) 8 % Eosinophils (%) (Auto) 1 % Basophils (%) (Auto) 1 % Neutrophils # (Auto) 6.9 x10^3/uL Lymphocytes # (Auto) 1.4 x10^3/uL Monocytes # (Auto) 0.7 x10^3/uL Eosinophils # (Auto) 0.1 x10^3/uL Basophils # (Auto) 0.1 x10^3/uL Prothrombin Time 18.2 SEC Prothromb Time International Ratio 1.5 Activated Partial Thromboplast Time 36 SEC Sodium Level 136 mmol/L Potassium Level 3.6 mmol/L Chloride Level 102 mmol/L Carbon Dioxide Level 29 mmol/L Anion Gap 5 Blood Urea Nitrogen 24 mg/dL Creatinine 1.4 mg/dL Estimated GFR (Cockcroft-Gault) 48.5 BUN/Creatinine Ratio 17 Glucose Level 190 mg/dL Lactic Acid Level 2.3 mmol/L Calcium Level 8.6 mg/dL Total Bilirubin 0.5 mg/dL Aspartate Amino Transf (AST/SGOT) 19 U/L Alanine Aminotransferase (ALT/SGPT) 22 U/L Alkaline Phosphatase 82 U/L Total Protein 6.1 g/dL Albumin 2.5 g/dL Albumin/Globulin Ratio 0.7 SARS-CoV-2 Antigen (Rapid) Negative EKG: EKG: [] Radiology/Procedures: Radiology/Procedures: [][facility] [address] [place] [address] IMAGING REPORT Signed PATIENT: CHRISTIAN SMITH ACCOUNT: [id number] : 1940 LOCATION: ER AGE: 80 SEX: M EXAM STATUS: REG ER ORD. PHYSICIAN: KELSEY HERNANDEZ DO REASON: RIGHT ANKLE SWELLING PROCEDURE: ANKLE RIGHT 3V RIBS RIGHT AND PA CHEST, ANKLE RIGHT 3V History: Right side rib pain and swelling, fall, right ankle swelling Comparison: Chest exam January 21, 2020, no previous ankle exam available Chest with right rib radiographs: Findings: Single view of the chest and 4 additional views of the right ribs are submitted. There is now a right upper extremity PICC with the tip in the region of the superior aspect of the superior vena cava. There is again degree of elevation of the right hemidiaphragm. There is some linear opacity of the lung bases as seen previously likely fibrotic change and/or atelectasis. No pneumothorax is identified. There is small fairly opaque nodular opacity of the right lung base as seen previously. Heart size is stable. There is atherosclerotic calcification near aortic arch. There are slightly displaced right anterolateral 8th, 9th, 10th, and 11th rib fractures. Impression: 1. There are slightly displaced right anterolateral 8th through 11th rib fractures. No pneumothorax is identified. Right ankle radiographs: FINDINGS: 3 views of the right ankle are submitted. There is oblique, minimally displaced fracture of the distal fibula, located just above the syndesmosis. There is soft tissue swelling about the ankle. Tibiotalar joint space is maintained. IMPRESSION: 1.There is oblique somewhat displaced distal fibula fracture. Electronically signed by: Benjie Hernandez MD (02/25/2020 11:43 AM) [id number] DICTATED and SIGNED BY: BENJIE HERNANDEZ MD DATE: 02/25/20 1143 Course & Med Decision Making: Course & Med Decision Making Pertinent Labs and Imaging studies reviewed. (See chart for details) Patient is an 80-year-old male who is evaluated in the ER due to right ankle pain, right side rib pain. Patient distal fibula fracture on the right side, nonoperative per Dr. Talley. Patient also found to have 4 broken ribs on the right side. Patient do have a temperature 100.4 F, suspect source of infection from the left knee or the PICC line. We will admit him to the hospital for further evaluation and treatment. Discussed with Dr. Arita who agreed to admit the patient. Vianey Disclaimer: Dragaicha Disclaimer: This electronic medical record was generated, in whole or in part, using a voice recognition dictation system. Departure Departure Impression: Primary Impression: Closed fracture of right distal fibula Additional Impressions: Fracture four ribs-closed Infection of left knee Disposition: ADMITTED INPATIENT Admitting Physician: MICHAEL (Dr. ARITA) Condition: STABLE Referrals: HUE GUILLERMO MD (PCP) Justicifation of Admission Dx: Justifications for Admission: Justification of Admission Dx: Yes Cellulitis: Cellulitis KELSEY HERNANDEZ DO Feb 25, 2020 10:59
[2020-02-25 11:07] LABS: BASO # 0.1 x10^3/uL (0.0-0.2); BASO % 1 % (0-3); EOS # 0.1 x10^3/uL (0.0-0.7); EOS % 1 % (0-3); HEMATOCRIT 33.1 % (39.0-53.0); HEMOGLOBIN 11.3 g/dL (13.0-17.5); LYMPH # 1.4 x10^3/uL (1.0-4.8); LYMPH % 15 % (24-48); MEAN CORPUSCULAR HEMOGLOBIN 33 pg (25-35); MEAN CORPUSCULAR HGB CONC 34 g/dL (31-37); MEAN CORPUSCULAR VOLUME 97 fL (79-100); MONO # 0.7 x10^3/uL (0.0-1.1); MONO % 8 % (0-9); NEUT # 6.9 x10^3/uL (1.8-7.7); NEUT % 75 % (31-73); PLATELET COUNT 348 x10^3/uL (140-400); RED BLOOD COUNT 3.43 x10^6/uL (4.30-5.70); RED CELL DISTRIBUTION WIDTH 13.8 % (11.5-14.5); WHITE BLOOD COUNT 9.2 x10^3/uL (4.0-11.0)
[2020-02-25 11:18] LABS: CALCIUM 8.6 mg/dL (8.5-10.1); CREATININE 1.4 mg/dL (0.7-1.3); GFR 48.5; POTASSIUM 3.6 mmol/L (3.5-5.1)
[2020-02-25 11:23] LABS: PROTHROMBIN TIME PATIENT 18.2 SEC (11.7-14.0)
[2020-02-25 11:33] LABS: ALBUMIN 2.5 g/dL (3.4-5.0); ALBUMIN/GLOBULIN RATIO 0.7 (1.0-1.7); TOTAL BILIRUBIN 0.5 mg/dL (0.2-1.0); TOTAL PROTEIN 6.1 g/dL (6.4-8.2)
--- NOTE | 2020-02-25 11:46 | RAD ---
RIBS RIGHT AND PA CHEST, ANKLE RIGHT 3V History: Right side rib pain and swelling, fall, right ankle swelling Comparison: Chest exam January 21, 2020, no previous ankle exam available Chest with right rib radiographs: Findings: Single view of the chest and 4 additional views of the right ribs are submitted. There is now a right upper extremity PICC with the tip in the region of the superior aspect of the superior vena cava. There is again degree of elevation of the right hemidiaphragm. There is some linear opacity of the lung bases as seen previously likely fibrotic change and/or atelectasis. No pneumothorax is identified. There is small fairly opaque nodular opacity of the right lung base as seen previously. Heart size is stable. There is atherosclerotic calcification near aortic arch. There are slightly displaced right anterolateral 8th, 9th, 10th, and 11th rib fractures. Impression: 1. There are slightly displaced right anterolateral 8th through 11th rib fractures. No pneumothorax is identified. Right ankle radiographs: FINDINGS: 3 views of the right ankle are submitted. There is oblique, minimally displaced fracture of the distal fibula, located just above the syndesmosis. There is soft tissue swelling about the ankle. Tibiotalar joint space is maintained. IMPRESSION: 1.There is oblique somewhat displaced distal fibula fracture. Electronically signed by: Aj Wiggins MD (02/25/2020 11:43 AM) [id number]
--- NOTE | 2020-02-25 12:14 | EKG ---
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
--- NOTE | 2020-02-25 14:15 | PDOC1 ---
History and Physical Date of Admission Date of Admission DATE: 02/25/20 TIME: 14:09 Identification/Chief Complaint Chief Complaint Fall Source Source: Patient History of Present Illness History of Present Illness Mr Dubon is an 80 yo M w/ PMHx afib, morbid obesity, HTN, HLD who presents to ED via EMS from home complaining of worsening right ankle pain. He notes 2 days prior to coming to the ED today he did have a fall onto his right side. He knows he has had some trouble following his weightbearing restrictions after recent left total knee arthroplasty and revision. EMS reported to ED staff a temp of 100.4 F, no fever here. He still notes he is having trouble keeping up with his furosemide and just taking it as needed at home. He also notes that he missed 02/23/2020, 02/24/2020 and today's doses of Invanz. He did have 02/20 and 02/21 doses. 02/04/2020 he underwent a left total knee arthroplasty, went home, but had compliance difficulties, stopped taking furosemide as he did not want to get up frequently and his leg swelling and became red and hot with clear drainage and he returned on 02/12/2020 and on 02/14/2020 underwent irrigation, debridement, left knee with exchange of polyethylene tibial component and had received vancomycin and some cefazolin. ID consult added daptomycin as well as cefepime and discontinued the doxycycline that had been ordered. He was ultimately discharged on Invanz with planned ID f/u on 03/04/2020. He still has PICC in place. EKG NSR with some PVCs and PACs no ST segment changes. Right ankle x-ray with oblique distal fibular fracture minimally displaced,right and right rib x-ray with anterolateral 8th through 11th rib fractures and right- sided PIC in good position. Labs significant for NA 136, K3.6, BUN 24, CR 1.4, INR 1.5, glucose 190, lactic acid 2.3, albumin 2.5, WBC 9.2, Hb 11.3, platelets 348. He is unable to ambulate or care for himself at all. Admitted for further care. Past Medical History Cardiovascular: AFIB, HTN, Hyperlipidemia CENTRAL NERVOUS SYSTEM: CVA GI: GERD Psych: Anxiety, Depression Musculoskeletal: Osteoarthritis Renal/: Chronic renal insuff Past Surgical History Past Surgical History: Cataract Removal, Hernia Repair, Total knee replacement, Tonsillectomy Family History Family History: High Cholestrol, Hypertension, Stroke Social History Smoke: No ALCOHOL: social Drugs: None Current Problem List Problem List Problems Medical Problems: (1) Closed fracture of right distal fibula Status: Acute (2) Fracture four ribs-closed Status: Acute (3) Infection of left knee Status: Acute Current Medications Current Medications Active Scripts Active Percocet 5-325 mg Tablet (Oxycodone HCl/Acetaminophen) 1 Each Tablet 1 Each PO PRN Q4HRS PRN Reported [POTASSIUM 99 MG otc] Furosemide 40 Mg Tablet 1 Tab PO DAILY Children's Aspirin (Aspirin) 81 Mg Tab.chew 1 Tab PO DAILY 30 Days Mirapex (Pramipexole Di-Hcl) 0.25 Mg Tablet 1 Mg PO DAILY Cymbalta (Duloxetine Hcl) 30 Mg Capsule.dr 1 Cap PO DAILY Losartan Potassium 100 Mg Tablet 100 Mg PO DAILY Ferrous Sulfate 325 Mg Tablet 325 Mg PO TIDAFTMEAL Warfarin Sodium 3 Mg Tablet 3 Mg PO HS Atorvastatin Calcium 40 Mg Tablet 40 Mg PO HS Diltiazem 24HR Er (Diltiazem Hcl) 240 Mg Cap.er.24h 240 Mg PO DAILY07 Metoprolol Succinate ( Xl ) (Metoprolol Succinate) 25 Mg Tab.er.24h 12.5 Mg PO DAILY08 Tamsulosin Hcl 0.4 Mg Cap.er.24h 0.8 Mg PO DAILYBFRSUP Allergies Allergies: Coded Allergies: No Known Drug Allergies (Unverified , 02/20/20) ROS General: YES: Fatigue, Malaise; No: Chills, Night Sweats, Appetite, Other PSYCHOLOGICAL ROS: No: Anxiety, Behavioral Disorder, Concentration difficultie, Decreased libido, Depression, Disorientation, Hallucinations, Hostility, Irritablity, Memory difficulties, Mood Swings, Obsessive thoughts, Physical abuse, Sexual abuse, Sleep disturbances, Suicidal ideation, Other Eyes: No Blurry vision, No Decreased vision, No Double vision, No Dry eyes, No Excessive tearing, No Eye Pain, No Itchy Eyes, No Loss of vision, No Photophobia, No Scotomata, No Uses contacts, No Uses glasses, No Other HEENT: No: Heacaches, Visual Changes, Hearing change, Nasal congestion, Nasal discharge, Oral lesions, Sinus pain, Sore Throat, Epistaxis, Sneezing, Snoring, Tinnitus, Vertigo, Vocal changes, Other ALLERGY AND IMMUNOLOGY: No: Hives, Insect Bite Sensitivity, Itchy/Watery Eyes, Nasal Congestion, Post Nasal Drip, Seasonal Allergies, Other Hematological and Lymphatic: No: Bleeding Problems, Blood Clots, Blood Transfusions, Brusing, Night Sweats, Pallor, Swollen Lymph Nodes, Other ENDOCRINE: No: Breast Changes, Galactorrhea, Hair Pattern Changes, Hot Flashes, Malaise/lethargy, Mood Swings, Palpitations, Polydipsia/polyuria, Skin Changes, Temperature Intolerance, Unexpected Weight Changes, Other Breast: No New/Changing Breast Lumps, No Nipple changes, No Nipple discharge, No Other Respiratory: No: Cough, Hemoptysis, Orthopnea, Pleuritic Pain, Shortness of breath, SOB with excertion, Sputum Changes, Stridor, Tachypnea, Wheezing, Other Cardiovascular: yes Chest Pain; No Palpitations, No Orthopnea, No Paroxysmal Noc. Dyspnea, No Edema, No Lt Headedness, No Other Gastrointestinal: No Nausea, No Vomiting, No Abdominal Pain, No Diarrhea, No Constipation, No Melena, No Hematochezia, No Other Genitourinary: No Dysuria, No Frequency, No Incontinence, No Hematuria, No Retention, No Discharge, No Urgency, No Pain, No Flank Pain, No Other, No , No , No , No , No , No , No Musculoskeletal: Yes Gait Disturbance, Yes Joint Pain, Yes Joint Swelling, Yes Muscular Weakness; No Joint Stiffness, No Muscle Pain, No Pain In:, No Swelling In:, No Other Neurological: Yes Gait Disturbance; No Behavorial Changes, No Bowel/Bladder ControlChng, No Confusion, No Dizziness, No Headaches, No Impaired Coord/balance, No Memory Loss, No Nu mbness/Tingling, No Seizures, No Speech Problems, No Tremors, No Visual Changes, No Weakness, No Other Skin: No Dry Skin, No Eczema, No Hair Changes, No Lumps, No Mole Changes, No Mottling, No Nail Changes, No Pruritus, No Rash, No Skin Lesion Changes, No Other, No Acne Physical Exam General: Alert, Oriented X3, Cooperative, mild distress HEENT: Atraumatic, PERRLA, EOMI, Mucous membr. moist/pink Lungs: Clear to auscultation, Normal air movement Heart: S1S2, RRR, no thrills, no rubs Abdomen: Normal bowel sounds, Soft, No tenderness, No hepatosplenomegaly, No masses Rectal Exam: not examined Extremities: Other (Right ankle tender, left knee with compression wrap. Right chest wall tender as well) Neuro: Normal speech, Normal tone, Sensation intact, Cranial nerves 3-12 NL, Reflexes 2+, Other Psych/Mental Status: Mental status NL, Mood NL Vitals Vitals Vital Signs Date Time Temp Pulse Resp B/P (MAP) Pulse Ox O2 Delivery O2 Flow Rate FiO2 02/25/20 10:37 98.5 79 22 136/64 (88) 94 Room Air 98.5 Labs Labs Laboratory Tests Test 02/25/20 10:55 02/25/20 11:17 White Blood Count 9.2 x10^3/uL (4.0-11.0) Red Blood Count 3.43 x10^6/uL (4.30-5.70) Hemoglobin 11.3 g/dL (13.0-17.5) Hematocrit 33.1 % (39.0-53.0) Mean Corpuscular Volume 97 fL (79-100) Mean Corpuscular Hemoglobin 33 pg (25-35) Mean Corpuscular Hemoglobin Concent 34 g/dL (31-37) Red Cell Distribution Width 13.8 % (11.5-14.5) Platelet Count 348 x10^3/uL (140-400) Neutrophils (%) (Auto) 75 % (31-73) Lymphocytes (%) (Auto) 15 % (24-48) Monocytes (%) (Auto) 8 % (0-9) Eosinophils (%) (Auto) 1 % (0-3) Basophils (%) (Auto) 1 % (0-3) Neutrophils # (Auto) 6.9 x10^3/uL (1.8-7.7) Lymphocytes # (Auto) 1.4 x10^3/uL (1.0-4.8) Monocytes # (Auto) 0.7 x10^3/uL (0.0-1.1) Eosinophils # (Auto) 0.1 x10^3/uL (0.0-0.7) Basophils # (Auto) 0.1 x10^3/uL (0.0-0.2) Prothrombin Time 18.2 SEC (11.7-14.0) Prothromb Time International Ratio 1.5 (0.8-1.1) Activated Partial Thromboplast Time 36 SEC (24-38) Sodium Level 136 mmol/L (136-145) Potassium Level 3.6 mmol/L (3.5-5.1) Chloride Level 102 mmol/L (98-107) Carbon Dioxide Level 29 mmol/L (21-32) Anion Gap 5 (6-14) Blood Urea Nitrogen 24 mg/dL (8-26) Creatinine 1.4 mg/dL (0.7-1.3) Estimated GFR (Cockcroft-Gault) 48.5 BUN/Creatinine Ratio 17 (6-20) Glucose Level 190 mg/dL (70-99) Lactic Acid Level 2.3 mmol/L (0.4-2.0) Calcium Level 8.6 mg/dL (8.5-10.1) Total Bilirubin 0.5 mg/dL (0.2-1.0) Aspartate Amino Transf (AST/SGOT) 19 U/L (15-37) Alanine Aminotransferase (ALT/SGPT) 22 U/L (16-63) Alkaline Phosphatase 82 U/L (46-116) Total Protein 6.1 g/dL (6.4-8.2) Albumin 2.5 g/dL (3.4-5.0) Albumin/Globulin Ratio 0.7 (1.0-1.7) SARS-CoV-2 Antigen (Rapid) Negative (NEGATIVE) Laboratory Tests Test 02/25/20 10:55 02/25/20 11:17 White Blood Count 9.2 x10^3/uL (4.0-11.0) Red Blood Count 3.43 x10^6/uL (4.30-5.70) Hemoglobin 11.3 g/dL (13.0-17.5) Hematocrit 33.1 % (39.0-53.0) Mean Corpuscular Volume 97 fL (79-100) Mean Corpuscular Hemoglobin 33 pg (25-35) Mean Corpuscular Hemoglobin Concent 34 g/dL (31-37) Red Cell Distribution Width 13.8 % (11.5-14.5) Platelet Count 348 x10^3/uL (140-400) Neutrophils (%) (Auto) 75 % (31-73) Lymphocytes (%) (Auto) 15 % (24-48) Monocytes (%) (Auto) 8 % (0-9) Eosinophils (%) (Auto) 1 % (0-3) Basophils (%) (Auto) 1 % (0-3) Neutrophils # (Auto) 6.9 x10^3/uL (1.8-7.7) Lymphocytes # (Auto) 1.4 x10^3/uL (1.0-4.8) Monocytes # (Auto) 0.7 x10^3/uL (0.0-1.1) Eosinophils # (Auto) 0.1 x10^3/uL (0.0-0.7) Basophils # (Auto) 0.1 x10^3/uL (0.0-0.2) Prothrombin Time 18.2 SEC (11.7-14.0) Prothromb Time International Ratio 1.5 (0.8-1.1) Activated Partial Thromboplast Time 36 SEC (24-38) Sodium Level 136 mmol/L (136-145) Potassium Level 3.6 mmol/L (3.5-5.1) Chloride Level 102 mmol/L (98-107) Carbon Dioxide Level 29 mmol/L (21-32) Anion Gap 5 (6-14) Blood Urea Nitrogen 24 mg/dL (8-26) Creatinine 1.4 mg/dL (0.7-1.3) Estimated GFR (Cockcroft-Gault) 48.5 BUN/Creatinine Ratio 17 (6-20) Glucose Level 190 mg/dL (70-99) Lactic Acid Level 2.3 mmol/L (0.4-2.0) Calcium Level 8.6 mg/dL (8.5-10.1) Total Bilirubin 0.5 mg/dL (0.2-1.0) Aspartate Amino Transf (AST/SGOT) 19 U/L (15-37) Alanine Aminotransferase (ALT/SGPT) 22 U/L (16-63) Alkaline Phosphatase 82 U/L (46-116) Total Protein 6.1 g/dL (6.4-8.2) Albumin 2.5 g/dL (3.4-5.0) Albumin/Globulin Ratio 0.7 (1.0-1.7) SARS-CoV-2 Antigen (Rapid) Negative (NEGATIVE) Images Images Single view of the chest and 4 additional views of the right ribs are submitted. There is now a right upper extremity PICC with the tip in the region of the superior aspect of the superior vena cava. There is again degree of elevation of the right hemidiaphragm. There is some linear opacity of the lung bases as seen previously likely fibrotic change and/or atelectasis. No pneumothorax is identified. There is small fairly opaque nodular opacity of the right lung base as seen previously. Heart size is stable. There is atherosclerotic calcification near aortic arch. There are slightly displaced right anterolateral 8th, 9th, 10t h, and 11th rib fractures. Impression: 1. There are slightly displaced right anterolateral 8th through 11th rib fractures. No pneumothorax is identified. Right ankle radiographs: FINDINGS: 3 views of the right ankle are submitted. There is oblique, minimally displaced fracture of the distal fibula, located just above the syndesmosis. There is soft tissue swelling about the ankle. Tibiotalar joint space is maintained. IMPRESSION: 1.There is oblique somewhat displaced distal fibula fracture. VTE Prophylaxis Ordered VTE Prophylaxis Devices: Yes VTE Pharmacological Prophylaxi: Yes Assessment/Plan Assessment/Plan A/P: Fall -due to his gait instability, he needs 24/7 care. Right ankle fracture - ED is discussed with orthopedic surgery there is no immediate need for surgery. Rapid COVID-19 testing is negative Right rib fractures - no flail chest noted. Will admit for pain control H/o afib - sinus currently ANA - will hold his furosemide today. Likely this is vasomotor nephropathy from poor intake after his recent fall 2 days go. Morbid obesity - counseled on weight loss HTN - cont BB HLD - cont statin S/p left total knee arthroplasty - 02/04/2020 and he returned on 02/12/2020 and on 02/14/2020 underwent irrigation, debridement, left knee with exchange of polyethylene tibial component. On invanz currently, will change out with merrem, consult ID Hypokalemia - will replace orally Severe protein calorie malnutrition - will have polysomnography tech to see. Will need to improve nutrition to recover appropriately Lactic acidosis -- likely nutritional, will repeat Hyperglycemia - not fasting glucose, will check A1c, no hx of DM per patient FEN - Cardiac diet PPX - warfarin FULL CODE Dispo - inpatient for failure of outpatient therapy, needs daily IV antibiotics and 24/7 which he cannot provide for the past 72 hours. Justifications for Admission Other Justification YOANDY ARITA MD Feb 25, 2020 14:15
[2020-02-25] MEDS ORDERED: FUROSEMIDE 40 MG TABLET. PO SCH (15:00)
[2020-02-25] MEDS ORDERED: ONDANSETRON PF 4 MG/2 ML VIAL. IV PRN (15:45)
[2020-02-25] MEDS ORDERED: ACETAMINOPHEN 325 MG TABLET. PO PRN (15:45)
[2020-02-25] MEDS ORDERED: POTASSIUM CHLORIDE 20 MEQ TABLET.ER. PO ONE (16:15)
[2020-02-25 16:43] VITALS: BP 143/48
[2020-02-25] MEDS: FERROUS SULFATE 325 MG TABLET. PO SCH (17:50)
[2020-02-25] MEDS: MEROPENEM 1 GM in IV NORMAL SALINE 100ML 100 ML IV SCH ×2 (17:50→21:55)
[2020-02-25] MEDS: TAMSULOSIN 0.4 MG CAP.ER.24H. PO SCH (17:50)
[2020-02-25] MEDS: WARFARIN 3 MG TABLET. PO SCH (17:50)
[2020-02-25] MEDS: LIDOCAINE (700MG/PATCH) PATCH. TD SCH (17:51)
[2020-02-25] MEDS ORDERED: C.DIFF MED SCREEN BY RX. MC ONE (18:15)
[2020-02-25 19:00] VITALS: BP 114/47
[2020-02-25] MEDS: ATORVASTATIN CALCIUM 40 MG TABLET. PO SCH (20:57)
[2020-02-25] MEDS: PATCH REMOVAL. MC SCH (20:57)
[2020-02-25 23:00] VITALS: BP 131/49
[2020-02-26 03:00] VITALS: BP 126/46
[2020-02-26] MEDS: MEROPENEM 1 GM in IV NORMAL SALINE 100ML 100 ML IV SCH ×3 (05:31→22:37)
[2020-02-26 06:13] LABS: BASO # 0.1 x10^3/uL (0.0-0.2); BASO % 1 % (0-3); EOS # 0.4 x10^3/uL (0.0-0.7); EOS % 5 % (0-3); HEMATOCRIT 31.8 % (39.0-53.0); HEMOGLOBIN 10.8 g/dL (13.0-17.5); LYMPH # 1.8 x10^3/uL (1.0-4.8); LYMPH % 21 % (24-48); MEAN CORPUSCULAR HEMOGLOBIN 33 pg (25-35); MEAN CORPUSCULAR HGB CONC 34 g/dL (31-37); MEAN CORPUSCULAR VOLUME 97 fL (79-100); MONO # 0.8 x10^3/uL (0.0-1.1); MONO % 9 % (0-9); NEUT # 5.6 x10^3/uL (1.8-7.7); NEUT % 64 % (31-73); PLATELET COUNT 328 x10^3/uL (140-400); RED BLOOD COUNT 3.27 x10^6/uL (4.30-5.70); RED CELL DISTRIBUTION WIDTH 14.1 % (11.5-14.5); WHITE BLOOD COUNT 8.6 x10^3/uL (4.0-11.0)
[2020-02-26 06:18] LABS: PROTHROMBIN TIME PATIENT 19.1 SEC (11.7-14.0)
[2020-02-26 06:23] LABS: CALCIUM 8.2 mg/dL (8.5-10.1); CREATININE 1.3 mg/dL (0.7-1.3); GFR 52.9; POTASSIUM 4.3 mmol/L (3.5-5.1)
[2020-02-26 07:00] VITALS: BP 150/56
[2020-02-26] MEDS: LIDOCAINE (700MG/PATCH) PATCH. TD SCH (08:44)
[2020-02-26] MEDS: PRAMIPEXOLE 0.25 MG TABLET. PO SCH (08:44)
[2020-02-26] MEDS: ASPIRIN CHEWABLE 81 MG TABLET. PO SCH (08:45)
[2020-02-26] MEDS: DULoxetine HCL 30 MG CAPSULE.DR PO SCH (08:45)
[2020-02-26] MEDS: FERROUS SULFATE 325 MG TABLET. PO SCH ×3 (08:45→18:23)
[2020-02-26] MEDS: LOSARTAN POTASSIUM 50 MG TABLET. PO SCH (08:45)
[2020-02-26] MEDS: oxyCODONE/APAP 5/325 1 TAB TABLET PO PRN ×2 (08:46→16:32)
[2020-02-26] MEDS: METOPROLOL SUCC 24HR ER 25 MG TAB.ER.24H. PO SCH (08:46)
[2020-02-26] MEDS: FUROSEMIDE 40 MG TABLET. PO SCH (08:48)
--- NOTE | 2020-02-26 09:46 | NUR ---
SW following. Discussed with RN, pt was trying to get to [facility] from home, however needed xrays prior to going. Pt was admitted. Pt awaiting a boot, then can work with therapy. [facility] can accept pt with IV abx (dapto and invanz) and for therapy, pending insurance auth. JANIE will continue to follow.
[2020-02-26] MEDS: DAPTOmycin (GENERIC) IVPB 530 MG in IV NORMAL SALINE 50ML 50 ML IV SCH (10:54)
[2020-02-26 11:00] VITALS: BP 138/47
[2020-02-26 15:00] VITALS: BP 101/37
[2020-02-26] MEDS: TAMSULOSIN 0.4 MG CAP.ER.24H. PO SCH (16:32)
[2020-02-26] MEDS: WARFARIN 3 MG TABLET. PO SCH (16:32)
--- NOTE | 2020-02-26 17:32 | PDOC ---
PROGRESS NOTES Date of Service: DATE: 02/26/20 TIME: 17:31 Chief Complaint Chief Complaint Fall History of Present Illness History of Present Illness Patient states the pain in his right ribs are worsening in his legs. He has been using his incentive spirometer. Discussed the need for [id number]-frx-[id number] longterm care. He denies any fever, shortness of breath. Vitals Vitals Vital Signs Date Time Temp Pulse Resp B/P (MAP) Pulse Ox O2 Delivery O2 Flow Rate FiO2 02/26/20 16:32 Room Air 02/26/20 15:00 97.5 76 18 101/37 (58) 95 97.5 Physical Exam General: Alert, Oriented X3, Cooperative, mild distress Lungs: Clear Abdomen: Normal bowel sounds, Soft, No tenderness, No hepatosplenomegaly, No masses Extremities: Other (Right ankle tender, left knee with compression wrap. Right chest wall tender as well) Labs LABS Laboratory Tests Test 02/26/20 05:25 White Blood Count 8.6 x10^3/uL (4.0-11.0) Red Blood Count 3.27 x10^6/uL (4.30-5.70) Hemoglobin 10.8 g/dL (13.0-17.5) Hematocrit 31.8 % (39.0-53.0) Mean Corpuscular Volume 97 fL (79-100) Mean Corpuscular Hemoglobin 33 pg (25-35) Mean Corpuscular Hemoglobin Concent 34 g/dL (31-37) Red Cell Distribution Width 14.1 % (11.5-14.5) Platelet Count 328 x10^3/uL (140-400) Neutrophils (%) (Auto) 64 % (31-73) Lymphocytes (%) (Auto) 21 % (24-48) Monocytes (%) (Auto) 9 % (0-9) Eosinophils (%) (Auto) 5 % (0-3) Basophils (%) (Auto) 1 % (0-3) Neutrophils # (Auto) 5.6 x10^3/uL (1.8-7.7) Lymphocytes # (Auto) 1.8 x10^3/uL (1.0-4.8) Monocytes # (Auto) 0.8 x10^3/uL (0.0-1.1) Eosinophils # (Auto) 0.4 x10^3/uL (0.0-0.7) Basophils # (Auto) 0.1 x10^3/uL (0.0-0.2) Prothrombin Time 19.1 SEC (11.7-14.0) Prothromb Time International Ratio 1.6 (0.8-1.1) Sodium Level 139 mmol/L (136-145) Potassium Level 4.3 mmol/L (3.5-5.1) Chloride Level 102 mmol/L (98-107) Carbon Dioxide Level 32 mmol/L (21-32) Anion Gap 5 (6-14) Blood Urea Nitrogen 20 mg/dL (8-26) Creatinine 1.3 mg/dL (0.7-1.3) Estimated GFR (Cockcroft-Gault) 52.9 Glucose Level 97 mg/dL (70-99) Calcium Level 8.2 mg/dL (8.5-10.1) Review of Systems Review of Systems Right rib pain, right leg pain. Denies shortness of breath, denies cough, denies fever. Assessment and Plan Assessmemt and Plan Problems Medical Problems: (1) Closed fracture of right distal fibula Status: Acute (2) Fracture four ribs-closed Status: Acute (3) Infection of left knee Status: Acute Comment Review of Relevant I have reviewed the following items deyvi (where applicable) has been applied. Labs Laboratory Tests Test 02/25/20 10:55 02/25/20 11:17 02/25/20 16:22 02/26/20 05:25 White Blood Count 9.2 x10^3/uL (4.0-11.0) 8.6 x10^3/uL (4.0-11.0) Red Blood Count 3.43 x10^6/uL (4.30-5.70) 3.27 x10^6/uL (4.30-5.70) Hemoglobin 11.3 g/dL (13.0-17.5) 10.8 g/dL (13.0-17.5) Hematocrit 33.1 % (39.0-53.0) 31.8 % (39.0-53.0) Mean Corpuscular Volume 97 fL (79-100) 97 fL (79-100) Mean Corpuscular Hemoglobin 33 pg (25-35) 33 pg (25-35) Mean Corpuscular Hemoglobin Concent 34 g/dL (31-37) 34 g/dL (31-37) Red Cell Distribution Width 13.8 % (11.5-14.5) 14.1 % (11.5-14.5) Platelet Count 348 x10^3/uL (140-400) 328 x10^3/uL (140-400) Neutrophils (%) (Auto) 75 % (31-73) 64 % (31-73) Lymphocytes (%) (Auto) 15 % (24-48) 21 % (24-48) Monocytes (%) (Auto) 8 % (0-9) 9 % (0-9) Eosinophils (%) (Auto) 1 % (0-3) 5 % (0-3) Basophils (%) (Auto) 1 % (0-3) 1 % (0-3) Neutrophils # (Auto) 6.9 x10^3/uL (1.8-7.7) 5.6 x10^3/uL (1.8-7.7) Lymphocytes # (Auto) 1.4 x10^3/uL (1.0-4.8) 1.8 x10^3/uL (1.0-4.8) Monocytes # (Auto) 0.7 x10^3/uL (0.0-1.1) 0.8 x10^3/uL (0.0-1.1) Eosinophils # (Auto) 0.1 x10^3/uL (0.0-0.7) 0.4 x10^3/uL (0.0-0.7) Basophils # (Auto) 0.1 x10^3/uL (0.0-0.2) 0.1 x10^3/uL (0.0-0.2) Prothrombin Time 18.2 SEC (11.7-14.0) 19.1 SEC (11.7-14.0) Prothromb Time International Ratio 1.5 (0.8-1.1) 1.6 (0.8-1.1) Activated Partial Thromboplast Time 36 SEC (24-38) Sodium Level 136 mmol/L (136-145) 139 mmol/L (136-145) Potassium Level 3.6 mmol/L (3.5-5.1) 4.3 mmol/L (3.5-5.1) Chloride Level 102 mmol/L (98-107) 102 mmol/L (98-107) Carbon Dioxide Level 29 mmol/L (21-32) 32 mmol/L (21-32) Anion Gap 5 (6-14) 5 (6-14) Blood Urea Nitrogen 24 mg/dL (8-26) 20 mg/dL (8-26) Creatinine 1.4 mg/dL (0.7-1.3) 1.3 mg/dL (0.7-1.3) Estimated GFR (Cockcroft-Gault) 48.5 52.9 BUN/Creatinine Ratio 17 (6-20) Glucose Level 190 mg/dL (70-99) 97 mg/dL (70-99) Lactic Acid Level 2.3 mmol/L (0.4-2.0) 0.9 mmol/L (0.4-2.0) Calcium Level 8.6 mg/dL (8.5-10.1) 8.2 mg/dL (8.5-10.1) Total Bilirubin 0.5 mg/dL (0.2-1.0) Aspartate Amino Transf (AST/SGOT) 19 U/L (15-37) Alanine Aminotransferase (ALT/SGPT) 22 U/L (16-63) Alkaline Phosphatase 82 U/L (46-116) Total Protein 6.1 g/dL (6.4-8.2) Albumin 2.5 g/dL (3.4-5.0) Albumin/Globulin Ratio 0.7 (1.0-1.7) Coronavirus (PCR) Not detected (Not Detected) SARS-CoV-2 Antigen (Rapid) Negative (NEGATIVE) Laboratory Tests Test 02/26/20 05:25 White Blood Count 8.6 x10^3/uL (4.0-11.0) Red Blood Count 3.27 x10^6/uL (4.30-5.70) Hemoglobin 10.8 g/dL (13.0-17.5) Hematocrit 31.8 % (39.0-53.0) Mean Corpuscular Volume 97 fL (79-100) Mean Corpuscular Hemoglobin 33 pg (25-35) Mean Corpuscular Hemoglobin Concent 34 g/dL (31-37) Red Cell Distribution Width 14.1 % (11.5-14.5) Platelet Count 328 x10^3/uL (140-400) Neutrophils (%) (Auto) 64 % (31-73) Lymphocytes (%) (Auto) 21 % (24-48) Monocytes (%) (Auto) 9 % (0-9) Eosinophils (%) (Auto) 5 % (0-3) Basophils (%) (Auto) 1 % (0-3) Neutrophils # (Auto) 5.6 x10^3/uL (1.8-7.7) Lymphocytes # (Auto) 1.8 x10^3/uL (1.0-4.8) Monocytes # (Auto) 0.8 x10^3/uL (0.0-1.1) Eosinophils # (Auto) 0.4 x10^3/uL (0.0-0.7) Basophils # (Auto) 0.1 x10^3/uL (0.0-0.2) Prothrombin Time 19.1 SEC (11.7-14.0) Prothromb Time International Ratio 1.6 (0.8-1.1) Sodium Level 139 mmol/L (136-145) Potassium Level 4.3 mmol/L (3.5-5.1) Chloride Level 102 mmol/L (98-107) Carbon Dioxide Level 32 mmol/L (21-32) Anion Gap 5 (6-14) Blood Urea Nitrogen 20 mg/dL (8-26) Creatinine 1.3 mg/dL (0.7-1.3) Estimated GFR (Cockcroft-Gault) 52.9 Glucose Level 97 mg/dL (70-99) Calcium Level 8.2 mg/dL (8.5-10.1) Microbiology 02/25/20 Blood Culture - Preliminary, Resulted NO GROWTH AFTER 1 DAY Medications Current Medications Meropenem 1 gm/ Sodium Chloride 100 ml @ 200 mls/hr Q8HRS IV Last administered on 02/26/20at 14:53; Start 02/25/20 at 15:00 Aspirin (Aspirin Chewable) 81 mg DAILY PO Last administered on 02/26/20at 08:45; Start 02/26/20 at 09:00 Atorvastatin Calcium (Lipitor) 40 mg HS PO Last administered on 02/25/20at 20:57; Start 02/25/20 at 21:00 Diltiazem HCl (Cardizem 24hr Cd) 240 mg DAILY07 PO Last administered on 02/26/20 08:45; Start 02/26/20 at 07:00 Duloxetine HCl (Cymbalta) 30 mg DAILY PO Last administered on 02/26/20at 08:45; Start 02/26/20 at 09:00 Ferrous Sulfate (Feosol) 325 mg TIDAFTMEAL PO Last administered on 02/26/20at 14:52; Start 02/25/20 at 18:00 Furosemide (Lasix) 40 mg DAILY PO ; Start 02/25/20 at 15:00; Stop 02/25/20 at 15:46; Status DC Metoprolol Succinate (Toprol Xl) 12.5 mg DAILY08 PO Last administered on 02/26/20 08:46; Start 02/26/20 at 08:00 Oxycodone/ Acetaminophen (Percocet 5/325) 1 tab PRN Q4HRS PRN PO moderate-sev ere pain Last administered on 02/26/20 16:32; Start 02/25/20 at 15:00 Pramipexole Dihydrochloride (miraPEX) 1 mg DAILY PO Last administered on 02/26/20 08:44; Start 02/26/20 at 09:00 Tamsulosin HCl (Flomax) 0.8 mg DAILYBFRSUP PO Last administered on 02/26/20 16:32; Start 02/25/20 at 17:00 Warfarin Sodium (Coumadin) 3 mg DAILY16 PO Last administered on 02/26/20 16:32; Start 02/25/20 at 16:00 Losartan Potassium (Cozaar) 100 mg DAILY PO Last administered on 02/26/20 08:45; Start 02/26/20 at 09:00 Warfarin Sodium (Coumadin Per Physician) 1 each PRN DAILY PRN MC SEE COMMENTS Last administered on 02/26/20 15:22; Start 02/25/20 at 15:15 Ondansetron HCl (Zofran) 4 mg PRN Q4HRS PRN IV NAUSEA/VOMITING; Start 02/25/20 at 15:45 Acetaminophen (Tylenol) 650 mg PRN Q4HRS PRN PO TEMP OVER 100.4F OR MILD PAIN; Start 02/25/20 at 15:45 Lidocaine (Lidoderm) 1 patch DAILY TD Last administered on 02/26/20at 08:44; Start 02/25/20 at 15:45 Miscellaneous (Lidoderm Patch Removal) 1 ea QHS MC Last administered on 02/25/20at 20:57; Start 02/25/20 at 21:00 Furosemide (Lasix) 40 mg DAILY PO Last administered on 02/26/20at 08:48; Start 02/26/20 at 09:00 Potassium Chloride (Klor-Con) 20 meq 1X ONCE PO Last administered on 02/25/20at 17:50; Start 02/25/20 at 16:15; Stop 02/25/20 at 16:16; Status DC Pharmacy Consult (C.diff Med Screen By Rx) 1 each 1X ONCE MC Last administered on 02/25/20at 18:15; Start 02/25/20 at 18:15; Stop 02/25/20 at 18:16; Status DC Daptomycin 530 mg/ Sodium Chloride 50 ml @ 100 mls/hr Q24H IV Last administered on 02/26/20at 10:54; Start 02/26/20 at 09:30 Lactobacillus Rhamnosus (Culturelle) 1 cap BID PO ; Start 02/26/20 at 21:00 Active Scripts Active Percocet 5-325 mg Tablet (Oxycodone HCl/Acetaminophen) 1 Each Tablet 1 Each PO PRN Q4HRS PRN Reported [POTASSIUM 99 MG otc] Furosemide 40 Mg Tablet 1 Tab PO DAILY Children's Aspirin (Aspirin) 81 Mg Tab.chew 1 Tab PO DAILY 30 Days Mirapex (Pramipexole Di-Hcl) 0.25 Mg Tablet 1 Mg PO DAILY Cymbalta (Duloxetine Hcl) 30 Mg Capsule.dr 1 Cap PO DAILY Losartan Potassium 100 Mg Tablet 100 Mg PO DAILY Ferrous Sulfate 325 Mg Tablet 325 Mg PO TIDAFTMEAL Warfarin Sodium 3 Mg Tablet 3 Mg PO HS Atorvastatin Calcium 40 Mg Tablet 40 Mg PO HS Diltiazem 24HR Er (Diltiazem Hcl) 240 Mg Cap.er.24h 240 Mg PO DAILY07 Metoprolol Succinate ( Xl ) (Metoprolol Succinate) 25 Mg Tab.er.24h 12.5 Mg PO DAILY08 Tamsulosin Hcl 0.4 Mg Cap.er.24h 0.8 Mg PO DAILYBFRSUP Vitals/I & O Vital Sign - Last 24 Hours 02/25/20 02/25/20 02/25/20 02/25/20 19:00 19:12 20:15 23:00 Temp 98.2 98.2 98.2 98.2 Pulse 72 75 Resp 18 18 B/P (MAP) 114/47 (69) 131/49 (76) Pulse Ox 91 94 O2 Delivery Room Air Room Air Room Air Room Air 02/26/20 02/26/20 02/26/20 02/26/20 03:00 07:00 08:00 08:45 Temp 98.2 97.9 98.2 97.9 Pulse 79 92 92 Resp 18 18 B/P (MAP) 126/46 (72) 150/56 (87) 150/56 Pulse Ox 92 95 O2 Delivery Room Air Room Air Room Air 02/26/20 02/26/20 02/26/20 02/26/20 08:45 08:46 08:46 09:46 Pulse 92 92 B/P (MAP) 150/56 150/56 O2 Delivery Room Air Room Air 02/26/20 02/26/20 02/26/20 11:00 15:00 16:32 Temp 98.6 97.5 98.6 97.5 Pulse 87 76 Resp 18 18 B/P (MAP) 138/47 (77) 101/37 (58) Pulse Ox 92 95 O2 Delivery Room Air Room Air Room Air Intake and Output 02/25/20 02/25/20 02/26/20 15:00 23:00 07:00 Intake Total 60 ml Output Total 275 ml Balance -215 ml Justicifation of Admission Dx: Justifications for Admission: Justification of Admission Dx: Yes Cellulitis: Cellulitis KARLA HANNAH MD Feb 26, 2020 17:32
[2020-02-26 19:00] VITALS: BP 102/42
[2020-02-26] MEDS: ATORVASTATIN CALCIUM 40 MG TABLET. PO SCH (20:31)
[2020-02-26] MEDS: PATCH REMOVAL. MC SCH (20:31)
[2020-02-26] MEDS: LACTOBACILLUS RHAMNOSUS GG 1 CAPSULE. PO SCH (20:31)
[2020-02-26 23:00] VITALS: BP 138/51
--- NOTE | 2020-02-26 23:23 | CONS ---
DATE OF CONSULTATION: 02/26/2020 REFERRING PHYSICIAN: Dr. Chavez. REASON FOR CONSULTATION: Antibiotic management for left knee infection. HISTORY OF PRESENT ILLNESS: This is an 80-year-old male with history of hypertension, hyperlipidemia, atrial fibrillation, morbid obesity, presented to ER from home complaining of fall onto the right side with worsening right ankle pain. The patient also had right-sided chest pain, which he attributed to possibly a rib fracture, which he sustained. The patient underwent irrigation and debridement of left knee with exchange of polyethylene tibial component on 02/14/[address] Talley. Intraoperative cultures were negative. 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 The patient denies any fevers, chills, nausea, vomiting, diarrhea. He continues to get IV daptomycin and Invanz at the infusion clinic daily. He does have a PICC line, did not have any issues with the PICC line or antibiotic infusion, which he gets at infusion center here at [facility]. The patient remains afebrile. White count was 9.2, hemoglobin 11.3, hematocrit 33.1, platelets 348. Creatinine was 1.4, lactate of 2.3. Last CK on 02/16 was 181. C-reactive protein was 29.2. LFTs were normal. ID consultation has been requested for antibiotic management. The patient remains on meropenem. Upon admission, I started him on daptomycin. The patient had a rib x-ray, which showed oblique displaced distal tibial fracture and also displaced right anterolateral 8th through 11th rib fracture, no pneumothorax. Orthopedics has been consulted. He still continues to have dressing intact with drain in place. PAST MEDICAL HISTORY: Hypertension, hyperlipidemia, history of CVA, GERD, anxiety, depression, osteoarthritis, chronic renal insufficiency. PAST SURGICAL HISTORY: Status post total knee replacement, hernia repair, tonsillectomy, and cataract removal. FAMILY HISTORY: As per HPI. SOCIAL HISTORY: Denies smoking, ETOH social, no drugs. Lives with spouse at home. CURRENT MEDICATION: Daptomycin and Invanz. Other medications reviewed in medication list. ALLERGIES: No known drug allergies. REVIEW OF SYSTEMS: Negative except for above in HPI. PHYSICAL EXAMINATION: VITAL SIGNS: Temperature 98.6, pulse 87, respiratory rate 18, blood pressure 138/47, oxygen saturation 92% on room air. GENERAL: Alert, oriented x 3, pleasant male in no acute distress. HEENT: Normocephalic, atraumatic, anicteric. No thrush. NECK: Supple, no JVD, no thyromegaly. LUNGS: Clear bilaterally. No wheezing. HEART: S1, S2. No gallops or murmurs. ABDOMEN: Soft, nontender, nondistended. No rebound, no guarding. Obese. EXTREMITIES: Left lower extremity bilateral edema with chronic venous stasis, left. Postop dressing in place with VAC not taken down. Right ankle swelling, bruising present. Tenderness present. PICC line, left upper extremity looks clean. DERMATOLOGIC: Warm, dry. No generalized rash. NEUROLOGIC: Alert and oriented x 3, grossly nonfocal. PSYCHIATRIC: Cooperative, appropriate mood and affect. LABORATORY DATA: WBC 8.6, hemoglobin 10.8, hematocrit 31.8, platelets 328. Sodium 139, potassium 4.3, chloride 102, bicarbonate 32, BUN 20, creatinine 1.3. Lactate 2.3, repeat is 0.9. LFTs within normal limits. Albumin 2.5. UA not available. Synovial fluid from 02/12/2020 showed WBC 6250. Polymorphs 97, total RBC 30,000. COVID-19 negative on 02/25/2020. MICROBIOLOGY: Blood culture negative so far. 02/14/2020, left knee, cultures, no organism seen. Gram stain, no organism seen. Cultures negative. IMAGING: Ankle x-ray as above. Ribs with chest x-ray as above. IMPRESSION: 1. History of fall. 2. Right ankle fracture. Per Orthopedics, there is no immediate need for surgery. 3. Right rib fracture, no pneumothorax. 4. 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 Cultures negative. 5. History of left total knee arthroplasty. 6. Lactic acidosis. 7. Morbid obesity. 8. Hypertension/hyperlipidemia. 9. History of atrial fibrillation. 10. Acute kidney injury, improving. 11. Protein-calorie malnutrition. RECOMMENDATIONS: 1. Continue daptomycin and meropenem, the patient was on Invanz at outside infusion center along with the daptomycin. 2. Check CK. 3. Maintain PICC line care. 4. Left knee wound care as directed. 5. Activity per Orthopedics. 6. Maintain aspiration precaution. 7. Follow up labs and cultures. 8. Continue supportive care. Thank you for allowing me to participate in this patient's care. If you have any questions, do not hesitate to contact me. FLO GALEAS MD DR: SHILPA/emelyn JOB#: [id number] / [id number] JOSÉ MIGUEL
[2020-02-27 02:08] LABS: HEMOGLOBIN A1C 5.9 % (4.8-5.6)
[2020-02-27 03:00] VITALS: BP 117/42
[2020-02-27] MEDS: MEROPENEM 1 GM in IV NORMAL SALINE 100ML 100 ML IV SCH (06:00)
[2020-02-27] MEDS: oxyCODONE/APAP 5/325 1 TAB TABLET PO PRN (06:00)
[2020-02-27 07:00] VITALS: BP 139/55
[2020-02-27 07:53] LABS: PROTHROMBIN TIME PATIENT 19.2 SEC (11.7-14.0)
--- NOTE | 2020-02-27 09:19 | PDOC ---
Infectious Disease Note Subjective: Subjective Patient continues to have sciatica pain in the left lower extremity Denies fever, nausea, vomiting, shortness of breath, diarrhea, abdominal pain, rash Otherwise as above He will be transferred to [facility] later today Vital Signs: Vital Signs Vital Signs Date Time Temp Pulse Resp B/P (MAP) Pulse Ox O2 Delivery O2 Flow Rate FiO2 02/27/20 07:28 16 Room Air 02/27/20 07:00 98.0 78 139/55 (83) 91 98.0 Physical Exam: PHYSICAL EXAM GENERAL: Alert, oriented x 3, pleasant male in no acute distress. HEENT: Normocephalic, atraumatic, anicteric. No thrush. NECK: Supple, no JVD, no thyromegaly. LUNGS: Clear bilaterally. No wheezing. HEART: S1, S2. No gallops or murmurs. ABDOMEN: Soft, nontender, nondistended. No rebound, no guarding. Obese. EXTREMITIES: Left lower extremity bilateral edema with chronic venous stasis, left. Left knee postop dressing in place with wound VAC in place ,not taken down. No drainage, mild swelling Right ankle swelling, bruising present. Tenderness present. DERMATOLOGIC: Warm, dry. No generalized rash. NEUROLOGIC: Alert and oriented x 3, grossly nonfocal. PSYCHIATRIC: Cooperative, appropriate mood and affect. PICC line, left upper extremity looks clean. Medications: Inpatient Meds: Current Medications Medications (Trade) Dose Ordered Sig/[facility] Start Time Stop Time Status Last Admin Dose Admin Acetaminophen (Tylenol) 650 mg PRN Q4HRS PRN 02/25/20 15:45 Aspirin (Aspirin Chewable) 81 mg DAILY 02/26/20 09:00 02/26/20 08:45 81 MG Atorvastatin Calcium (Lipitor) 40 mg HS 02/25/20 21:00 02/26/20 20:31 40 MG Daptomycin 530 mg/ Sodium Chloride 50 ml @ 100 mls/hr Q24H 02/26/20 09:30 02/26/20 10:54 100 MLS/HR Diltiazem HCl (Cardizem 24hr Cd) 240 mg DAILY07 02/26/20 07:00 02/27/20 06:01 240 MG Duloxetine HCl (Cymbalta) 30 mg DAILY 02/26/20 09:00 02/26/20 08:45 30 MG Ferrous Sulfate (Feosol) 325 mg TIDAFTMEAL 02/25/20 18:00 02/26/20 18:23 325 MG Furosemide (Lasix) 40 mg DAILY 02/26/20 09:00 02/26/20 08:48 40 MG Lactobacillus Rhamnosus (Culturelle) 1 cap BID 02/26/20 21:00 02/26/20 20:31 1 CAP Lidocaine (Lidoderm) 1 patch DAILY 02/25/20 15:45 02/26/20 08:44 1 PATCH Losartan Potassium (Cozaar) 100 mg DAILY 02/26/20 09:00 02/26/20 08:45 100 MG Meropenem 1 gm/ Sodium Chloride 100 ml @ 200 mls/hr Q8HRS 02/25/20 15:00 02/27/20 06:00 200 MLS/HR Metoprolol Succinate (Toprol Xl) 12.5 mg DAILY08 02/26/20 08:00 02/26/20 08:46 12.5 MG Miscellaneous (Lidoderm Patch Removal) 1 ea QHS 02/25/20 21:00 02/26/20 20:31 1 EA Ondansetron HCl (Zofran) 4 mg PRN Q4HRS PRN 02/25/20 15:45 Oxycodone/ Acetaminophen (Percocet 5/325) 1 tab PRN Q4HRS PRN 02/25/20 15:00 02/27/20 06:00 1 TAB Pharmacy Consult (C.diff Med Screen By Rx) 1 each 1X ONCE 02/25/20 18:15 02/25/20 18:16 DC 02/25/20 18:15 1 EACH Potassium Chloride (Klor-Con) 20 meq 1X ONCE 02/25/20 16:15 02/25/20 16:16 DC 02/25/20 17:50 20 MEQ Pramipexole Dihydrochloride (miraPEX) 1 mg DAILY 02/26/20 09:00 02/26/20 08:44 1 MG Tamsulosin HCl (Flomax) 0.8 mg DAILYBFRSUP 02/25/20 17:00 02/26/20 16:32 0.8 MG Warfarin Sodium (Coumadin Per Physician) 1 each PRN DAILY PRN 02/25/20 15:15 02/26/20 15:22 1 EACH Warfarin Sodium (Coumadin) 3 mg DAILY16 02/25/20 16:00 02/26/20 16:32 3 MG Labs: Lab Laboratory Tests Test 02/27/20 07:15 Prothrombin Time 19.2 SEC (11.7-14.0) Prothromb Time International Ratio 1.7 (0.8-1.1) Creatine Kinase 172 U/L (39-308) Objective: Assessment: 1. History of fall. 2. Right ankle fracture. Per Orthopedics, there is no immediate need for surgery. 3. Right rib fracture, no pneumothorax. 4. 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 Cultures negative. 5. History of left total knee arthroplasty. 6. Lactic acidosis. 7. Morbid obesity. 8. Hypertension/hyperlipidemia. 9. History of atrial fibrillation. 10. Acute kidney injury, improving. 11. Protein-calorie malnutrition. Plan: Plan of Care Continue daptomycin and meropenem, the patient was on Invanz at outside infusion center along with the daptomycin. Change back to daptomycin and Invanz that patient was on prior to admission CPK 176 Left knee wound care as directed. Right ankle fracture treatment per orthopedic Activity per Orthopedics. Wound/VAC care per orthopedics Maintain aspiration precaution. Follow up labs and cultures. Continue supportive care. 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 Monday labs CBC/BUN/creatinine/CPK/CRP. Fax results to [phone] Follow-up ID clinic March 11 call [phone] Discussed with at bedside FLO GALEAS MD Feb 27, 2020 09:19
[2020-02-27] MEDS: FERROUS SULFATE 325 MG TABLET. PO SCH ×2 (09:48→13:06)
[2020-02-27] MEDS: LACTOBACILLUS RHAMNOSUS GG 1 CAPSULE. PO SCH (09:48)
[2020-02-27] MEDS: ASPIRIN CHEWABLE 81 MG TABLET. PO SCH (09:49)
[2020-02-27] MEDS: METOPROLOL SUCC 24HR ER 25 MG TAB.ER.24H. PO SCH (09:49)
[2020-02-27] MEDS: LOSARTAN POTASSIUM 50 MG TABLET. PO SCH (09:49)
[2020-02-27] MEDS: DULoxetine HCL 30 MG CAPSULE.DR PO SCH (09:49)
[2020-02-27] MEDS: DAPTOmycin (GENERIC) IVPB 530 MG in IV NORMAL SALINE 50ML 50 ML IV SCH (09:50)
[2020-02-27] MEDS: LIDOCAINE (700MG/PATCH) PATCH. TD SCH (09:50)
[2020-02-27] MEDS: FUROSEMIDE 40 MG TABLET. PO SCH (09:52)
--- NOTE | 2020-02-27 10:04 | NUR ---
JANIE following. Discussed with RN, insurance approved SNU. Pt discharging today to [facility], awaiting discharge orders. JANIE will continue to follow. Addendum: 02/27/20 at 1229 by ROJELIO LIMA Transportation arranged for 1430 by [facility] transportation. RN to notify family. JANIE not able to reach pt's .
--- NOTE | 2020-02-27 10:13 | PDOC ---
[employer] PROGRESS NOTE Date of Service DOS: DATE: 02/27/20 TIME: 10:12 Chief Complaint Chief Complaint Fall History of Present Illness History of Present Illness Patient still complains of pain in his ribs, controlled with medication. He is still agreeable to rehab, and is ready for discharge today. Vitals/I&O Vitals/I&O: Vital Signs Date Time Temp Pulse Resp B/P (MAP) Pulse Ox O2 Delivery O2 Flow Rate FiO2 02/27/20 09:49 78 139/55 02/27/20 07:28 16 Room Air 02/27/20 07:00 98.0 91 98.0 I & O 02/26/20 02/26/20 02/27/20 15:00 23:00 07:00 Intake Total 250 ml 200 ml 990 ml Balance 250 ml 200 ml 990 ml Physical Exam Physical Exam: GENERAL: Alert, oriented x 3, pleasant male in no acute distress. HEENT: Normocephalic, atraumatic, anicteric. No thrush. NECK: Supple, no JVD, no thyromegaly. LUNGS: Clear bilaterally. No wheezing. HEART: S1, S2. No gallops or murmurs. ABDOMEN: Soft, nontender, nondistended. No rebound, no guarding. Obese. EXTREMITIES: Left lower extremity bilateral edema with chronic venous stasis, left. Left knee postop dressing in place with wound VAC in place ,not taken down. No drainage, mild swelling Right ankle swelling, bruising present. Tenderness present. DERMATOLOGIC: Warm, dry. No generalized rash. NEUROLOGIC: Alert and oriented x 3, grossly nonfocal. PSYCHIATRIC: Cooperative, appropriate mood and affect. PICC line, left upper extremity looks clean. General: Alert, Oriented X3, Cooperative, mild distress Lungs: Clear Abdomen: Normal bowel sounds, Soft, No tenderness, No hepatosplenomegaly, No masses Extremities: Other (Right ankle tender, left knee with compression wrap. Right chest wall tender as well) Labs Labs: Laboratory Tests Test 02/27/20 07:15 Prothrombin Time 19.2 SEC (11.7-14.0) Prothromb Time International Ratio 1.7 (0.8-1.1) Creatine Kinase 172 U/L (39-308) Assessment and Plan Assessmemt and Plan Problems Medical Problems: (1) Closed fracture of right distal fibula Status: Acute (2) Fracture four ribs-closed Status: Acute (3) Infection of left knee Status: Acute Plan: Discharge to [facility]. Greater than 35 minutes was spent managing at the discharge of this patient. Comment Review of Relevant I have reviewed the following items deyvi (where applicable) has been applied. Medications: Current Medications Medications (Trade) Dose Ordered Sig/Jaime Route PRN Reason Start Time Stop Time Status Last Admin Dose Admin Lactobacillus Rhamnosus (Culturelle) 1 cap BID PO 02/26/20 21:00 02/27/20 09:48 Justifications for Admission Other Justification KARLA HANNAH MD Feb 27, 2020 10:13
[2020-02-27] MEDS ORDERED: OXYC-325 PO (10:22)
--- NOTE | 2020-02-27 10:28 | SNU/HH DC ---
DISCHARGE ORDERS DISCHARGE INFORMATION: DISCHARGE DATE: Feb 27, 2020 FINAL DIAGNOSIS Problems Medical Problems: (1) Closed fracture of right distal fibula Status: Acute (2) Fracture four ribs-closed Status: Acute (3) Infection of left knee Status: Acute CONDITION ON DISCHARGE: Stable CODE STATUS: Code Status: Full LONG-TERM: SNF STAY <30 DAYS: Yes HOSPICE: HOSPICE: No HOSPICE EVAL & TREAT: No LTAC: ADMIT TO LTAC: No POST DISCHARGE ORDERS: ACTIVITY ORDERS: Activity as tolerated WEIGHT BEARING STATUS: As tolerated BATHING ORDERS: Shower-keep dressing dry, No Tub Bath until see DIET AFTER DISCHARGE: Cardiac WOUND/INCISION CARE: Ice to area for comfort, Keep wound/cast CDI, Do not change dressing OTHER ORDERS: Continue antibiotics as written TREATMENT/EQUIPMENT ORDERS: ADAPTIVE EQUIPMENT NEEDED: Front wheeled walker Physical Therapy For: Evalulation/Treatment Occupational Therapy For: Evaluation/Treatment DISCHARGE MEDICATIONS: Home Meds Active Scripts Oxycodone HCl/Acetaminophen (Percocet 5-325 mg Tablet) 1 Each Tablet, 1 EACH PO PRN Q4HRS PRN for PAIN, #60 TAB Prov:KARLA HANNAH MD 02/27/20 Reported Medications [POTASSIUM 99 MG otc] No Conflict Check, for SUPPLEMENT 02/04/20 Furosemide (FUROSEMIDE) 40 Mg Tablet, 1 TAB PO DAILY for DIURETIC, #30 TAB 5 Refills 02/04/20 Aspirin (Children's Aspirin) 81 Mg Tab.chew, 1 TAB PO DAILY for HEART for 30 Days, #30 TAB 0 Refills 01/21/20 Pramipexole Di-Hcl (MIRAPEX) 0.25 Mg Tablet, 1 MG PO DAILY for RLS, TAB 01/21/20 Duloxetine Hcl (CYMBALTA) 30 Mg Capsule.dr, 1 CAP PO DAILY for DEPRESSION, #30 CAP 5 Refills 01/21/20 Losartan Potassium (LOSARTAN POTASSIUM) 100 Mg Tablet, 100 MG PO DAILY for HYPERTENSION, TAB 01/21/20 Ferrous Sulfate (FERROUS SULFATE) 325 Mg Tablet, 325 MG PO TIDAFTMEAL 08/06/13 Warfarin Sodium (WARFARIN SODIUM) 3 Mg Tablet, 3 MG PO HS 08/06/13 Atorvastatin Calcium (ATORVASTATIN CALCIUM) 40 Mg Tablet, 40 MG PO HS 08/06/13 Diltiazem Hcl (DILTIAZEM 24HR ER) 240 Mg Cap.er.24h, 240 MG PO DAILY07 08/06/13 Metoprolol Succinate (METOPROLOL SUCCINATE ( XL )) 25 Mg Tab.er.24h, 12.5 MG PO DAILY08 08/06/13 Tamsulosin Hcl (TAMSULOSIN HCL) 0.4 Mg Cap.er.24h, 0.8 MG PO DAILYBFRSUP 08/06/13 KARLA HANNAH MD Feb 27, 2020 10:28
--- NOTE | 2020-02-27 10:32 | PDOC3 ---
Discharge Summary Visit Information Date of Admission: Feb 25, 2020 Date of Discharge: Feb 27, 2020 Final Diagnosis Problems Medical Problems: (1) Closed fracture of right distal fibula Status: Acute (2) Fracture four ribs-closed Status: Acute (3) Infection of left knee Status: Acute Brief Hospital Course Allergies Allergies Coded Allergies Type Severity Reaction Last Updated Verified No Known Drug Allergies 02/20/20 No Vital Signs Vital Signs Date Time Temp Pulse Resp B/P (MAP) Pulse Ox O2 Delivery O2 Flow Rate FiO2 02/27/20 09:49 78 139/55 02/27/20 07:28 16 Room Air 02/27/20 07:00 98.0 91 98.0 Lab Results Laboratory Tests Test 02/25/20 10:55 02/25/20 11:17 02/25/20 16:22 02/26/20 05:25 White Blood Count 9.2 x10^3/uL (4.0-11.0) 8.6 x10^3/uL (4.0-11.0) Red Blood Count 3.43 x10^6/uL (4.30-5.70) 3.27 x10^6/uL (4.30-5.70) Hemoglobin 11.3 g/dL (13.0-17.5) 10.8 g/dL (13.0-17.5) Hematocrit 33.1 % (39.0-53.0) 31.8 % (39.0-53.0) Mean Corpuscular Volume 97 fL (79-100) 97 fL (79-100) Mean Corpuscular Hemoglobin 33 pg (25-35) 33 pg (25-35) Mean Corpuscular Hemoglobin Concent 34 g/dL (31-37) 34 g/dL (31-37) Red Cell Distribution Width 13.8 % (11.5-14.5) 14.1 % (11.5-14.5) Platelet Count 348 x10^3/uL (140-400) 328 x10^3/uL (140-400) Neutrophils (%) (Auto) 75 % (31-73) 64 % (31-73) Lymphocytes (%) (Auto) 15 % (24-48) 21 % (24-48) Monocytes (%) (Auto) 8 % (0-9) 9 % (0-9) Eosinophils (%) (Auto) 1 % (0-3) 5 % (0-3) Basophils (%) (Auto) 1 % (0-3) 1 % (0-3) Neutrophils # (Auto) 6.9 x10^3/uL (1.8-7.7) 5.6 x10^3/uL (1.8-7.7) Lymphocytes # (Auto) 1.4 x10^3/uL (1.0-4.8) 1.8 x10^3/uL (1.0-4.8) Monocytes # (Auto) 0.7 x10^3/uL (0.0-1.1) 0.8 x10^3/uL (0.0-1.1) Eosinophils # (Auto) 0.1 x10^3/uL (0.0-0.7) 0.4 x10^3/uL (0.0-0.7) Basophils # (Auto) 0.1 x10^3/uL (0.0-0.2) 0.1 x10^3/uL (0.0-0.2) Prothrombin Time 18.2 SEC (11.7-14.0) 19.1 SEC (11.7-14.0) Prothromb Time International Ratio 1.5 (0.8-1.1) 1.6 (0.8-1.1) Activated Partial Thromboplast Time 36 SEC (24-38) Sodium Level 136 mmol/L (136-145) 139 mmol/L (136-145) Potassium Level 3.6 mmol/L (3.5-5.1) 4.3 mmol/L (3.5-5.1) Chloride Level 102 mmol/L (98-107) 102 mmol/L (98-107) Carbon Dioxide Level 29 mmol/L (21-32) 32 mmol/L (21-32) Anion Gap 5 (6-14) 5 (6-14) Blood Urea Nitrogen 24 mg/dL (8-26) 20 mg/dL (8-26) Creatinine 1.4 mg/dL (0.7-1.3) 1.3 mg/dL (0.7-1.3) Estimated GFR (Cockcroft-Gault) 48.5 52.9 BUN/Creatinine Ratio 17 (6-20) Glucose Level 190 mg/dL (70-99) 97 mg/dL (70-99) Hemoglobin A1c 5.9 % (4.8-5.6) Lactic Acid Level 2.3 mmol/L (0.4-2.0) 0.9 mmol/L (0.4-2.0) Calcium Level 8.6 mg/dL (8.5-10.1) 8.2 mg/dL (8.5-10.1) Total Bilirubin 0.5 mg/dL (0.2-1.0) Aspartate Amino Transf (AST/SGOT) 19 U/L (15-37) Alanine Aminotransferase (ALT/SGPT) 22 U/L (16-63) Alkaline Phosphatase 82 U/L (46-116) Total Protein 6.1 g/dL (6.4-8.2) Albumin 2.5 g/dL (3.4-5.0) Albumin/Globulin Ratio 0.7 (1.0-1.7) Coronavirus (PCR) Not detected (Not Detected) SARS-CoV-2 Antigen (Rapid) Negative (NEGATIVE) Test 02/27/20 07:15 Prothrombin Time 19.2 SEC (11.7-14.0) Prothromb Time International Ratio 1.7 (0.8-1.1) Creatine Kinase 172 U/L (39-308) Laboratory Tests Test 02/27/20 07:15 Prothrombin Time 19.2 SEC (11.7-14.0) Prothromb Time International Ratio 1.7 (0.8-1.1) Creatine Kinase 172 U/L (39-308) Brief Hospital Course Mr. Dubon is a 80 old male who presented with right ankle fracture, right rib fractures. Consultations were placed to orthopedic surgery, who recommended no surgical intervention. Due to patient's instability he will need 24/7 care. His rapid COVID19 testing was negative. He was stable for [facility] to [facility] with antibiotics and pain medication. Discharge Information Condition at Discharge: Stable Disposition/Orders: D/C to Another Facility Scheduled Aspirin (Children's Aspirin) 81 Mg Tab.chew, 1 TAB PO DAILY for HEART for 30 Days, #30 Ref 0 (Reported) Entered as Reported by: DEZ MOSES on 01/21/20 1328 Last Action: Continued on 9/1/1455 by YOANDY ARITA MD Atorvastatin Calcium (Atorvastatin Calcium) 40 Mg Tablet, 40 MG PO HS, (Reporte d) Entered as Reported by: EVITA MATIAS on 08/06/13 145 Last Action: Continued on 02/25/201455 by YOANDY ARITA MD Diltiazem Hcl (Diltiazem 24HR Er) 240 Mg Cap.er.24h, 240 MG PO DAILY07, (Reported) Entered as Reported by: EVITA MATIAS on 08/06/131457 Last Action: Continued on 02/25/201455 by YOANDY ARITA MD Duloxetine Hcl (Cymbalta) 30 Mg Capsule.dr, 1 CAP PO DAILY for DEPRESSION, #30 Ref 5 (Reported) Entered as Reported by: DEZ MOSES on 01/21/20 1328 Last Action: Continued on 02/25/201455 by YOANDY ARITA MD Ferrous Sulfate (Ferrous Sulfate) 325 Mg Tablet, 325 MG PO TIDAFTMEAL, (Reported) Entered as Reported by: EVITA MATIAS on 08/06/13 1501 Last Action: Continued on 02/25/201455 by YOANDY ARITA MD Furosemide (Furosemide) 40 Mg Tablet, 1 TAB PO DAILY for DIURETIC, #30 Ref 5 (Reported) Entered as Reported by: ESVIN ORONA on 02/04/20 0829 Last Action: Continued on 02/25/201455 by YOANDY ARITA MD Losartan Potassium (Losartan Potassium) 100 Mg Tablet, 100 MG PO DAILY for HYPERTENSION, (Reported) Entered as Reported by: DEZ MOSES on 01/21/20 132 Last Action: Converted on 02/25/201455 by YOANDY ARITA MD Metoprolol Succinate (Metoprolol Succinate ( Xl )) 25 Mg Tab.er.24h, 12.5 MG PO DAILY08, (Reported) Entered as Reported by: EVITA MATIAS on 08/06/13 145 Last Action: Continued on 02/25/201455 by YOANDY ARITA MD Pramipexole Di-Hcl (Mirapex) 0.25 Mg Tablet, 1 MG PO DAILY for RLS, (Reported) Entered as Reported by: DEZ MOSES on 01/21/20 1328 Last Action: Continued on 02/25/201455 by YOANDY ARITA MD Tamsulosin Hcl (Tamsulosin Hcl) 0.4 Mg Cap.er.24h, 0.8 MG PO DAILYBFRSUP, (Reported) Entered as Reported by: EVITA MATIAS on 08/06/13 1453 Last Action: Continued on 02/25/201455 by YOANDY ARITA MD Warfarin Sodium (Warfarin Sodium) 3 Mg Tablet, 3 MG PO HS, (Reported) Entered as Reported by: EVITA MATIAS on 08/06/13 1500 Last Action: Continued on 02/25/201455 by YOANDY ARITA MD Scheduled PRN Oxycodone HCl/Acetaminophen (Percocet 5-325 mg Tablet) 1 Each Tablet, 1 EACH PO PRN Q4HRS PRN for PAIN, #60 Prescribed by: KARLA HANNAH MD on 02/27/20 1022 Miscellaneous Medications [POTASSIUM 99 MG otc] , for SUPPLEMENT, (Reported) Entered as Reported by: ESVIN ORONA on 02/04/20 0834 Justicifation of Admission Dx: Justifications for Admission: Justification of Admission Dx: Yes Cellulitis: Cellulitis KARLA HANNAH MD Feb 27, 2020 10:32
[2020-02-27 11:00] VITALS: BP 116/63
[2020-02-27] MEDS: PRAMIPEXOLE 0.25 MG TABLET. PO SCH (11:58)
[2020-02-27] MEDS ORDERED: ERTAPENEM 0.5 GM in IV NORMAL SALINE 50ML 50 ML IV ONE ×2 (12:30→13:30)
--- NOTE | 2020-02-27 14:41 | NUR ---
Discharge Note: [facility] Discharge instructions and discharge home medications reviewed with Other facility and a copy given. All questions have been answered and understanding verbalized. The following instructions and handouts were given: copy of chart, discharge instructions for halfway, new prescriptions and follow up recommendations. Discontinued lines and drains: Double lumen PICC left intact for continued IV antibiotic infusions. Patient discharged to Care Home Facility with [facility] Transport Personnel via Wheelchair
== END 2020-02-27 14:44 | DRG 183 ==
LOC: ER 10:36 → 4 NORTH 14:18
PROVIDERS: ADMIT Internal Medicine; ATTEND Internal Medicine
DX: S22.41XA Multiple fractures of ribs, right side, initial encounter for closed fracture (principal); E43 Unspecified severe protein-calorie malnutrition; E87.2 Acidosis; M00.9 Pyogenic arthritis, unspecified; N17.9 Acute kidney failure, unspecified; E66.01 Morbid (severe) obesity due to excess calories; Z20.828 Contact with and (suspected) exposure to other viral communicable diseases; E78.00 Pure hypercholesterolemia, unspecified; E78.5 Hyperlipidemia, unspecified; S82.831A Other fracture of upper and lower end of right fibula, initial encounter for closed fracture; S82.309A Unspecified fracture of lower end of unspecified tibia, initial encounter for closed fracture; N18.9 Chronic kidney disease, unspecified; M54.30 Sciatica, unspecified side; I49.3 Ventricular premature depolarization; I48.91 Unspecified atrial fibrillation; I12.9 Hypertensive chronic kidney disease with stage 1 through stage 4 chronic kidney disease, or unspecified chronic kidney disease; F41.9 Anxiety disorder, unspecified; K21.9 Gastro-esophageal reflux disease without esophagitis; M19.90 Unspecified osteoarthritis, unspecified site; R73.9 Hyperglycemia, unspecified; W18.30XA Fall on same level, unspecified, initial encounter; E87.6 Hypokalemia; F32.9 Major depressive disorder, single episode, unspecified; Z96.652 Presence of left artificial knee joint; Z87.891 Personal history of nicotine dependence; Z86.73 Personal history of transient ischemic attack (TIA), and cerebral infarction without residual deficits; Z68.37 Body mass index [BMI] 37.0-37.9, adult; Z82.49 Family history of ischemic heart disease and other diseases of the circulatory system; Z82.3 Family history of stroke; Z83.49 Family history of other endocrine, nutritional and metabolic diseases; Z79.899 Other long term (current) drug therapy; Z79.82 Long term (current) use of aspirin; Y93.89 Activity, other specified; Y92.89 Other specified places as the place of occurrence of the external cause; Y99.8 Other external cause status
CPT/HCPCS: 36415; 71101; 73610; 80048; 80053; 82550; 83036; 83605; 85025; 85610; 85730; 87040; 87426; 93005; 99285; J0878; J1335; J2185; 97110-GO; 97110-GP; 97116-GP; 97530-GP; 97535-GO; G0378; U0003-CS

== ENCOUNTER → 2020-03-26 | Outpatient (CLI) | payer BC ==
[2020-03-26 09:38] VITALS: BP 136/77
[2020-03-26 10:51] LABS: PROTHROMBIN TIME PATIENT 25.9 SEC (11.7-14.0)
== END ==
LOC: LAB 10:16
PROVIDERS: ATTEND Family Medicine
DX: Z79.01 Long term (current) use of anticoagulants (principal)
CPT/HCPCS: 36415; 85610